=== PATIENT | male | born 1955 | race American Indian/Alaskan Native ===

== ENCOUNTER 2022-05-01 12:45 | Inpatient (IN) | payer OTHER, MEDICARE ==
[2022-05-01] MEDS ORDERED: CEFEPIME/NS 2 GM/100 ML 2 GM/100 ML BAG IV ONE (16:21)
--- NOTE | 2022-05-01 16:31 | Emergency Department Report ---
ED General Adult HPI - General Chief complaint: Weakness Stated complaint: WEAKNESS Time Seen by Provider: 05/01/22 15:27 Source: patient, EMS Mode of arrival: Stretcher Limitations: No Limitations - History of Present Illness Initial comments: Patient presents to the emergency department with a chief complaint of not feeling well. Patient states that he felt weak for the last couple of days and was told that his blood pressure was low. Per EMS on their arrival the patient's systolic BP was in the 50s. Upon his arrival to the emergency department after receiving IV fluids his blood pressure was 89/51. Patient denies any chest pain, shortness breath, or abdominal pain. -: unknown Severity scale (0 -10): 0 Consistency: constant Improves with: none Worsens with: none Associated Symptoms: denies other symptoms Treatments Prior to Arrival: none - Related Data Allergies Allergy/AdvReac Type Severity Reaction Status Date / Time No Known Allergies Allergy Verified 05/01/22 12:55 ED Review of Systems ROS: Stated complaint: WEAKNESS Other details as noted in HPI Comment: All other systems reviewed and negative Constitutional: denies: chills, fever Eyes: denies: eye pain, eye discharge, vision change ENT: denies: ear pain, throat pain Respiratory: denies: cough, shortness of breath, wheezing Cardiovascular: denies: chest pain, palpitations Endocrine: no symptoms reported Gastrointestinal: denies: abdominal pain, nausea, diarrhea Genitourinary: denies: urgency, dysuria Musculoskeletal: denies: back pain, joint swelling, arthralgia Skin: denies: rash, lesions Neurological: denies: headache, weakness, paresthesias Psychiatric: denies: anxiety, depression Hematological/Lymphatic: denies: easy bleeding, easy bruising ED Physical Exam - General Limitations: No Limitations General appearance: alert, in no apparent distress - Head Head exam: Present: atraumatic, normocephalic - Eye Eye exam: Present: normal appearance - Neck Neck exam: Present: normal inspection - Respiratory Respiratory exam: Present: normal lung sounds bilaterally. Absent: respiratory distress, wheezes - Cardiovascular Cardiovascular Exam: Present: normal rhythm, tachycardia. Absent: systolic murmur, diastolic murmur, rubs, gallop - GI/Abdominal GI/Abdominal exam: Present: soft, normal bowel sounds - Rectal Rectal exam: Present: deferred - Extremities Exam Extremities exam: Present: other (Bilateral edema to the mid thighs bilaterally with cellulitic changes) - Back Exam Back exam: Present: normal inspection - Neurological Exam Neurological exam: Present: alert, oriented X3, CN II-XII intact. Absent: motor sensory deficit - Psychiatric Psychiatric exam: Present: normal affect, normal mood - Skin Skin exam: Present: warm, dry, intact, normal color. Absent: rash ED Course Vital Signs 05/01/22 05/01/22 05/01/22 12:52 13:19 13:30 Temperature 98.7 F Pulse Rate 110 H 116 H 112 H Respiratory 18 14 23 Rate Blood Pressure 94/48 Blood Pressure 84/63 [Left] O2 Sat by Pulse 98 99 Oximetry 05/01/22 05/01/22 05/01/22 13:46 14:00 14:16 Temperature Pulse Rate 109 H 108 H 106 H Respiratory 15 17 16 Rate Blood Pressure 87/47 87/47 87/47 Blood Pressure [Left] O2 Sat by Pulse 97 97 98 Oximetry 05/01/22 05/01/22 05/01/22 14:30 14:46 15:00 Temperature Pulse Rate 109 H 109 H 108 H Respiratory 15 20 21 Rate Blood Pressure 87/47 88/49 96/54 Blood Pressure [Left] O2 Sat by Pulse 90 99 98 Oximetry 05/01/22 05/01/22 05/01/22 15:16 15:30 15:46 Temperature Pulse Rate 103 H 101 H 108 H Respiratory 15 15 19 Rate Blood Pressure 87/49 89/50 89/51 Blood Pressure [Left] O2 Sat by Pulse 97 97 99 Oximetry ED Medical Decision Making - Lab Data Result diagrams: 05/01/22 17:36 05/01/22 17:36 Lab Results 05/01/22 05/01/22 05/01/22 Range/Units 17:36 17:36 17:36 WBC 8.9 (4.5-11.0) K/mm3 RBC 2.62 L (3.65-5.03) M/mm3 Hgb 8.4 L (11.8-15.2) gm/dl Hct 25.2 L (35.5-45.6) % MCV 97 H (84-94) fl MCH 32 (28-32) pg MCHC 33 (32-34) % RDW 15.3 H (13.2-15.2) % Plt Count 207 (140-440) K/mm3 Sodium 138 (137-145) mmol/L Potassium 3.2 L (3.6-5.0) mmol/L Chloride 96.6 L (98-107) mmol/L Carbon Dioxide 25 (22-30) mmol/L Anion Gap 20 mmol/L BUN 35 H (9-20) mg/dL Creatinine 3.4 H (0.8-1.3) mg/dL Estimated GFR 22 ml/min BUN/Creatinine Ratio 10 % Glucose 111 H (75-100) mg/dL Lactic Acid 9.10 H* (0.7-2.0) mmol/L Calcium 6.6 L (8.4-10.2) mg/dL Magnesium 1.40 L (1.7-2.3) mg/dL Total Bilirubin 0.60 (0.1-1.2) mg/dL AST 12 (5-40) units/L ALT 5 L (7-56) units/L Alkaline Phosphatase 94 (35-129) units/L Total Protein 4.8 L (6.3-8.2) g/dL Albumin 1.4 L (3.9-5) g/dL Albumin/Globulin Ratio 0.4 % - Radiology Data Radiology results: report reviewed - Medical Decision Making Patient had minimal response with IV fluids thus IV Levophed was initiated Central line was placed by admitting physician IV antibiotics were started along with IV fluids that were previously mentioned Critical Care Time: Yes Critical care time in (mins) excluding proc time.: 35 Critical care attestation.: If time is entered above; I have spent that time in minutes in the direct care of this critically ill patient, excluding procedure time. ED Disposition Clinical Impression: Sepsis associated hypotension Disposition: 09 ADMITTED INPATIENT Is pt being admited?: Yes Does the pt Need Aspirin: No Condition: Fair Referrals: PRIMARY CARE, [Primary Care Provider] - 3-5 Days
--- NOTE | 2022-05-01 16:54 | XRay Report ---
CHEST 1 VIEW 05/01/2022 3:46 PM INDICATION / CLINICAL INFORMATION: hypotension. COMPARISON: None. FINDINGS: SUPPORT DEVICES: Cardiac leads project in expected position. HEART / MEDIASTINUM: Mild cardiomegaly. Pulmonary vascularity is mildly increased. LUNGS / PLEURA: No acute pulmonary or pleural findings. No pneumothorax. ADDITIONAL FINDINGS: No significant additional findings. IMPRESSION: 1. No acute findings. 2. Cardiomegaly. Signer Name: Rudy Green MD Signed: 05/01/2022 4:50 PM Workstation Name: [id number]
--- NOTE | 2022-05-01 17:12 | History and Physical Report ---
History of Present Illness Chief complaint: I am weak and I do not feel good History of present illness: 66 YO Male with Obesity Hypoventilation Syndrome presents ED for evaluation. Patient is lethargic with diminished cognition and provides minimal history. Patient reports "I have been feeling weak the last couple days". EMS was notified and upon arrival the patient was found to be hypotensive with a systolic blood pressure in the 50s and was subsequently placed on IV for resuscitation therapy and transported to [facility] for further care and evaluation of the aforementioned symptoms. The patient was seen and evaluated in the emergency department. All lab and imaging studies reviewed. Patient found to have a systolic blood pressure in the 80s with clinical findings consistent with sepsis, GERALDINE with ATN, metabolic acidosis, as well as fluid overload. Patient admitted to IMCU due to increased risk of worsening symptoms and for medical stabilization. No reports of fever, chills, chest pain, palpitation, t achycardia problem skin rash, recent contact, known exposure to COVID-19. No prior admission for review. No medication listed at time of admission for reconciliation. Advanced care planning conducted in ED. Patient found to have diminished cognition but has a positive gag reflex and is able to protect his airway without difficulty. Past History Past Medical History: other (See HPI, otherwise unable obtain) Past Surgical History: No surgical history, Other (Unable to obtain) Social history: . denies: smoking, alcohol abuse, prescription drug abuse Family history: no significant family history, other (Unable to obtain) Medications and Allergies Allergies Allergy/AdvReac Type Severity Reaction Status Date / Time No Known Allergies Allergy Verified 05/01/22 12:55 Review of Systems ROS unobtainable: due to mental status Exam - Constitutional Vitals: Temp Pulse Resp BP Pulse Ox 98.7 F 108 H 19 89/51 99 05/01/22 12:52 05/01/22 15:46 05/01/22 15:46 05/01/22 15:46 05/01/22 15:46 General appearance: Present: mild distress, obese - EENT Eyes: Present: PERRL ENT: hearing intact, clear oral mucosa - Neck Neck: Present: supple, normal ROM - Respiratory Respiratory effort: normal Respiratory: bilateral: CTA - Cardiovascular Heart Sounds: Present: S1 & S2. Absent: rub, click - Extremities Extremity abnormal: edema Peripheral Pulses: abnormal (Capillary refill greater than 3.5 seconds) - Abdominal General gastrointestinal: Present: soft, non-tender, non-distended, normal bowel sounds Male genitourinary: Present: normal - Integumentary Integumentary: Present: dry, clammy, decreased turgor - Musculoskeletal Musculoskeletal: generalized weakness - Psychiatric Psychiatric: no appropriate mood/affect, no intact judgment & insight, no memory intact - Neurologic Neurologic: no CNII-XII intact, no focal deficits, moves all extremities, no gait normal Results - Labs CBC & Chem 7: 05/01/22 17:36 05/01/22 17:36 Assessment and Plan - Patient Problems (1) Sepsis Current Visit: Yes Status: Acute Plan to address problem: Sepsis protocol: Chest x-ray, CBC, urinalysis, IV fluid resuscitation therapy, monitor urine output every shift, serial lactic acid level, IV antibiotic therapy, maintain mean arterial pressure greater than equal to 65, monitor urine output every shift, monitor fluid balance, blood culture. (2) Obesity hypoventilation syndrome Current Visit: Yes Status: Acute Plan to address problem: Balanced diet, increase physical activity discharge, outpatient pulmonary follow-up for sleep study, noninvasive positive pressure ventilation as clinically indicated. (3) Acute kidney injury (GERALDINE) with acute tubular necrosis (ATN) Current Visit: Yes Status: Acute Plan to address problem: IV fluid resuscitation therapy, BMP, repeat BMP in a.m., monitor urine output every shift, monitor fluid balance. (4) Metabolic acidosis Current Visit: Yes Status: Acute Plan to address problem: IV fluid resuscitation therapy, treat sepsis, serial lactic acid level. (5) Toxic metabolic encephalopathy Current Visit: Yes Status: Acute Plan to address problem: Treat sepsis, neuro check, seizure precautions, IV fluid resuscitation therapy, supportive care. (6) Fluid overload Current Visit: Yes Status: Acute Plan to address problem: Monitor fluid balance, monitor urine output every shift, strict I's/O. (7) DVT prophylaxis Current Visit: Yes Status: Acute Plan to address problem: SCD to bilateral lower extremities while in bed (8) Advance care planning Current Visit: Yes Status: Acute Plan to address problem: Disease education data, care plan discussed, diagnoses discussed, prognosis di scussed, +30 minutes. (9) Preventative health care Current Visit: Yes Status: Acute Plan to address problem: Patient instructed to follow-up with primary care physician for all age and risk factor appropriate screening test. +30 minutes.
--- NOTE | 2022-05-01 17:14 | Procedure Note ---
Date of procedure: 05/01/22 Pre-op diagnosis: Sepsis Post-op diagnosis: same Procedure: Right femoral vein triple-lumen catheter placement under ultrasound guidance After informed consent was obtained the patient was prepped and draped in the usual sterile fashion. A timeout was taken with the patient's nurse at bedside to verify the correct patient, the correct procedure, and the correct operative site. Local anesthesia obtained with 1% lidocaine. Ultrasound was utilized to localize the right femoral vein without difficulty. The Seldinger technique was utilized under ultrasound guidance to insert a seeker needle into the right femoral vein without difficulty. A guidewire was then advanced via the seeker needle into the right femoral vein and the seeker needle subsequently removed. A scalpel was used to incise skin at the insertion site. A dilator was then passed over the guidewire into the right femoral vein and subsequently removed. A preflush triple-lumen catheter was then inserted over the guidewire into the right femoral vein and the guidewire subsequently removed. All 3 ports flush and drawl with ease. A Biopatch was placed at the insertion site. 3-0 silk suture was utilized to suture line in place. A sterile dressing was utilized to cover the triple-lumen catheter. Estimated blood loss minimal. Complications none. Specimens none. Anesthesia: local Surgeon: SUSAN SANCHEZ Pathology: none Condition: stable Disposition: other
[2022-05-01] MEDS ORDERED: NORepinephrine/NS 8 MG-250 ML 8 MG/250 ML INFUS..BTL IV ONE (17:25)
[2022-05-01] MEDS: NORepinephrine/NS 8 MG-250 ML 8 MG/250 ML INFUS..BTL IV SCH (17:41)
[2022-05-01 17:53] LABS: Hematocrit 25.2 % (35.5-45.6); Hemoglobin 8.4 gm/dl (11.8-15.2); Mean Corpuscular HGB Conc 33 % (32-34); Mean Corpuscular Volume 97 fl (84-94); Platelet Count 207 K/mm3 (140-440); Red Blood Count 2.62 M/mm3 (3.65-5.03); Red Cell Distribution Width 15.3 % (13.2-15.2)
[2022-05-01 18:26] LABS: Albumin 1.4 g/dL (3.9-5); Calcium 6.6 mg/dL (8.4-10.2)
[2022-05-01 20:17] LABS: Band Neutrophils # (Manual) 1.1 K/mm3; Basophils % (Manual) 0 % (0.0-1.8); Eosinophils % (Manual) 0 % (0.0-4.3); Hypochromasia Few; Monocytes % (Manual) 0 % (0.0-7.3); Platelet Estimate Consistent w Auto; Total Cells Counted 100
[2022-05-01] MEDS ORDERED: ACETAMINOPHEN 325 MG TAB PO PRN ×2 (20:29)
[2022-05-01] MEDS ORDERED: HYDROmorphone 0.5 MG/0.5 ML INJ IV PRN ×2 (20:29)
[2022-05-01] MEDS ORDERED: oxyCODONE /ACETAMINOPHEN 5-325MG TAB PO PRN (20:29)
[2022-05-01] MEDS ORDERED: SODIUM CHLORIDE 0.9% 1000 ML IV SOLN IV ONE (20:29)
--- NOTE | 2022-05-01 23:51 | Cat Scan Report ---
CT abdomen pelvis wo con INDICATION / CLINICAL INFORMATION: pain. TECHNIQUE: Axial CT imaging of abdomen and pelvis was obtained with oral contrast only. Coronal and sagittal ref ormatted imaging obtained and reviewed. All CT scans at this location are performed using CT dose re duction for ALARA by means of automated exposure control. COMPARISON: Prior CT abdomen 11/01/2009 FINDINGS: CT abdomen with oral contrast only demonstrates grossly normal appearance of the liver, spleen, pancr eas, kidneys, and adrenal glands. Gallbladder is present and without obvious abnormality. Moderate am ount of calcific plaque is present throughout the abdominal aorta but no evidence of aortic aneurysm. 2.5 cm simple cyst is present in the left kidney, upper pole. No intrarenal calculi noted. CT pelvis without IV contrast does not demonstrate any pelvic mass, free fluid, or focal inflammatory process. A normal appendix is present in the right midabdomen. Oral contrast is present throughout t he stomach and majority of the small bowel without demonstrable abnormality. There is mild sigmoid di verticulosis. The colon is otherwise unremarkable. Urinary bladder is normal. Prostate gland is mildl y enlarged. Visualized lung bases do not demonstrate acute pulmonary or pleural disease. However, there is an irr egular noncalcified mass in the right middle lobe anteriorly measuring 1.2 cm. Review of older CT fro m 11/01/2009 shows no significant interval change in this nodule. The lack of tire changer 12 year time period with indicate benign process. Mild cardiomegaly. No acute osseous abnormality noted. IMPRESSION: 1. No acute abnormality noted within the abdomen or pelvis. 2. Moderate amount of calcified plaque is seen throughout the abdominal aorta and common iliac arteri es without associated aneurysm. 3. No GI abnormality other than mild sigmoid diverticulosis.. Signer Name: Kate Sharma MD Signed: 05/01/2022 11:46 PM Workstation Name: [id number]
[2022-05-01 23:54] LABS: Free T4 (Free Thyroxine) 0.96 ng/dL (0.76-1.46)
[2022-05-02 01:48] LABS: C-Reactive Protein 16.1 mg/dL (0.00-1.30)
[2022-05-02 01:57] LABS: Color,Urine Yellow (Yellow)
[2022-05-02 01:58] LABS: WBC,Urine < 1.0 /HPF (0.0-6.0)
[2022-05-02 05:33] LABS: Basophils # (Auto) 0.1 K/mm3 (0.0-0.1); Basophils % (Auto) 0.5 % (0.0-1.8); Hematocrit 29.4 % (35.5-45.6); Hemoglobin 9.8 gm/dl (11.8-15.2); Lymphocytes # (Auto) 1.3 K/mm3 (1.2-5.4); Lymphocytes % (Auto) 7.6 % (13.4-35.0); Mean Corpuscular HGB Conc 33 % (32-34); Mean Corpuscular Volume 96 fl (84-94); Monocytes # (Auto) 0.7 K/mm3 (0.0-0.8); Monocytes % (Auto) 3.9 % (0.0-7.3); Platelet Count 233 K/mm3 (140-440); Red Blood Count 3.07 M/mm3 (3.65-5.03); Red Cell Distribution Width 16.3 % (13.2-15.2)
[2022-05-02] MEDS: D5W/0.45% NACL 1,000 ML IV SCH ×2 (06:34→16:23)
[2022-05-02] MEDS ORDERED: DEXTROSE 50% IN WATER (25GM) 50 ML SYRINGE IV ONE (06:40)
[2022-05-02 06:41] LABS: Albumin 1.6 g/dL (3.9-5)
[2022-05-02] MEDS: NORepinephrine/NS 8 MG-250 ML 8 MG/250 ML INFUS..BTL IV SCH (07:33)
[2022-05-02] MEDS ORDERED: LACTATED RINGERS 1,000 ML IV ONE ×4 (09:39→11:00)
[2022-05-02] MEDS: BENZOCAINE/MENTHOL LOZENGE MM PRN ×3 (10:35→20:33)
--- NOTE | 2022-05-02 10:47 | Consultation ---
History of Present Illness - Reason for Consult Consult date: 05/02/22 Hypotension Past History Past Medical History: other (See HPI, otherwise unable obtain) Past Surgical History: No surgical history, Other (Unable to obtain) Social history: . denies: smoking, alcohol abuse, prescription drug abuse Family history: no significant family history, other (Unable to obtain) Medications and Allergies Allergies Allergy/AdvReac Type Severity Reaction Status Date / Time No Known Allergies Allergy Verified 05/01/22 12:55 Home Medications Medication Instructions Recorded Confirmed Last Taken Type No Known Home Medications [No 05/02/22 05/02/22 Unknown History Reported Home Medications] Active Meds: Active Medications Acetaminophen (Acetaminophen 325 Mg Tab) 650 mg PO Q6H PRN PRN Reason: Pain MILD(1-3)/Fever >100.5/BROWN Benzocaine/Menthol (Benzocaine/Menthol Lozenge) 1 each MM Q2H PRN PRN Reason: Sore Throat Last Admin: 05/02/22 10:35 Dose: 1 each Hydromorphone HCl (Hydromorphone 0.5 Mg/0.5 Ml Inj) 0.25 mg IV Q4H PRN PRN Reason: Pain, Moderate (4-6) Hydromorphone HCl (Hydromorphone 0.5 Mg/0.5 Ml Inj) 0.5 mg IV Q13H PRN PRN Reason: Pain , Severe (7-10) NORepinephrine/NS 8 MG-250 ML (Norepinephrine/Ns 8 Mg-250 Ml (Double Conc)) 8 mg in 250 mls @ 22.113 mls/hr IV TITRATE ALEX; Protocol Last Admin: 05/02/22 07:33 Dose: 0.1 mcg/kg/min, 22.113 mls/hr Dextrose/Sodium Chloride (D5/0.45ns) 1,000 mls @ 100 mls/hr IV DIRECT ALEX Last Admin: 05/02/22 06:34 Dose: 100 mls/hr Lactated Ringer's (Lactated Ringers) 1,000 mls @ 999 mls/hr IV BOLUS ONE Stop: 05/02/22 12:00 Last Admin: 05/02/22 10:32 Dose: 999 mls/hr Oxycodone/Acetaminophen (Oxycodone /Acetaminophen 5-325mg Tab) 1 tab PO Q6H PRN PRN Reason: Pain, Moderate (4-6) Sodium Chloride (Sodium Chloride 0.9% 10 Ml Flush Syringe) 10 ml IV BID ALEX Last Admin: 05/02/22 10:31 Dose: 10 ml Sodium Chloride (Sodium Chloride 0.9% 10 Ml Flush Syringe) 10 ml IV PRN PRN PRN Reason: LINE FLUSH Exam - Constitutional Vitals: Temp Pulse Resp BP Pulse Ox 97.6 F 106 H 15 110/59 92 05/02/22 05:31 05/02/22 08:00 05/02/22 08:00 05/02/22 08:00 05/02/22 08:00 Results - Labs CBC & Chem 7: 05/03/22 04:00 05/03/22 04:00 Labs: Abnormal lab results 05/01/22 05/01/22 05/01/22 Range/Units 17:36 17:36 17:36 WBC (4.5-11.0) K/mm3 RBC 2.62 L (3.65-5.03) M/mm3 Hgb 8.4 L (11.8-15.2) gm/dl Hct 25.2 L (35.5-45.6) % MCV 97 H (84-94) fl RDW 15.3 H (13.2-15.2) % Lymph % (Auto) (13.4-35.0) % Seg Neutrophils % (40.0-70.0) % Seg Neuts % (Manual) 86.0 H (40.0-70.0) % Lymphocytes % (Manual) 1.0 L (13.4-35.0) % Seg Neutrophils # (1.8-7.7) K/mm3 Lymphocytes # (Manual) 0.1 L (1.2-5.4) K/mm3 Potassium 3.2 L (3.6-5.0) mmol/L Chloride 96.6 L (98-107) mmol/L BUN 35 H (9-20) mg/dL Creatinine 3.4 H (0.8-1.3) mg/dL Glucose 111 H (75-100) mg/dL POC Glucose (70-105) mg/dL Lactic Acid 9.10 H* (0.7-2.0) mmol/L Calcium 6.6 L (8.4-10.2) mg/dL Magnesium 1.40 L (1.7-2.3) mg/dL ALT 5 L (7-56) units/L C-Reactive Protein (0.00-1.30) mg/dL NT-Pro-B Natriuret Pep (0-900) pg/mL Total Protein 4.8 L (6.3-8.2) g/dL Albumin 1.4 L (3.9-5) g/dL 05/01/22 05/01/22 05/02/22 Range/Units 22:57 22:57 05:09 WBC (4.5-11.0) K/mm3 RBC (3.65-5.03) M/mm3 Hgb (11.8-15.2) gm/dl Hct (35.5-45.6) % MCV (84-94) fl RDW (13.2-15.2) % Lymph % (Auto) (13.4-35.0) % Seg Neutrophils % (40.0-70.0) % Seg Neuts % (Manual) (40.0-70.0) % Lymphocytes % (Manual) (13.4-35.0) % Seg Neutrophils # (1.8-7.7) K/mm3 Lymphocytes # (Manual) (1.2-5.4) K/mm3 Potassium (3.6-5.0) mmol/L Chloride (98-107) mmol/L BUN (9-20) mg/dL Creatinine (0.8-1.3) mg/dL Glucose (75-100) mg/dL POC Glucose (70-105) mg/dL Lactic Acid 10.20 H* 8.60 H* (0.7-2.0) mmol/L Calcium (8.4-10.2) mg/dL Magnesium 1.60 L (1.7-2.3) mg/dL ALT (7-56) units/L C-Reactive Protein 16.10 H (0.00-1.30) mg/dL NT-Pro-B Natriuret Pep 12649 H (0-900) pg/mL Total Protein (6.3-8.2) g/dL Albumin (3.9-5) g/dL 05/02/22 05/02/22 05/02/22 Range/Units 05:09 05:09 06:12 WBC 17.3 H (4.5-11.0) K/mm3 RBC 3.07 L (3.65-5.03) M/mm3 Hgb 9.8 L (11.8-15.2) gm/dl Hct 29.4 L (35.5-45.6) % MCV 96 H (84-94) fl RDW 16.3 H (13.2-15.2) % Lymph % (Auto) 7.6 L (13.4-35.0) % Seg Neutrophils % 88.0 H (40.0-70.0) % Seg Neuts % (Manual) (40.0-70.0) % Lymphocytes % (Manual) (13.4-35.0) % Seg Neutrophils # 15.2 H (1.8-7.7) K/mm3 Lymphocytes # (Manual) (1.2-5.4) K/mm3 Potassium 3.3 L (3.6-5.0) mmol/L Chloride 92.8 L (98-107) mmol/L BUN 36 H (9-20) mg/dL Creatinine 3.4 H (0.8-1.3) mg/dL Glucose (75-100) mg/dL POC Glucose 43 L (70-105) mg/dL Lactic Acid (0.7-2.0) mmol/L Calcium 7.0 L (8.4-10.2) mg/dL Magnesium (1.7-2.3) mg/dL ALT (7-56) units/L C-Reactive Protein (0.00-1.30) mg/dL NT-Pro-B Natriuret Pep (0-900) pg/mL Total Protein 6.0 L D (6.3-8.2) g/dL Albumin 1.6 L (3.9-5) g/dL 05/02/22 Range/Units 06:14 WBC (4.5-11.0) K/mm3 RBC (3.65-5.03) M/mm3 Hgb (11.8-15.2) gm/dl Hct (35.5-45.6) % MCV (84-94) fl RDW (13.2-15.2) % Lymph % (Auto) (13.4-35.0) % Seg Neutrophils % (40.0-70.0) % Seg Neuts % (Manual) (40.0-70.0) % Lymphocytes % (Manual) (13.4-35.0) % Seg Neutrophils # (1.8-7.7) K/mm3 Lymphocytes # (Manual) (1.2-5.4) K/mm3 Potassium (3.6-5.0) mmol/L Chloride (98-107) mmol/L BUN (9-20) mg/dL Creatinine (0.8-1.3) mg/dL Glucose (75-100) mg/dL POC Glucose 49 L (70-105) mg/dL Lactic Acid (0.7-2.0) mmol/L Calcium (8.4-10.2) mg/dL Magnesium (1.7-2.3) mg/dL ALT (7-56) units/L C-Reactive Protein (0.00-1.30) mg/dL NT-Pro-B Natriuret Pep (0-900) pg/mL Total Protein (6.3-8.2) g/dL Albumin (3.9-5) g/dL Assessment and Plan 66 y/o male with hypotension of unknown etiology 1. Most likely dry given BUN/CR. Will give more fluids 2. wean pressors to off for maps >65 CCT 31 minutes.
--- NOTE | 2022-05-02 11:46 | Electrocardiograph Report ---
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
[2022-05-02] MEDS: MIDODRINE 2.5 MG TAB PO SCH (16:22)
[2022-05-02] MEDS ORDERED: MAGNESIUM SULFATE 4 GM/100 ML BAG IV ONE (19:40)
--- NOTE | 2022-05-02 19:47 | Progress Note ---
Assessment and Plan Assessment and plan: This is a 76-year-old male with OHS, CVA x2, CHF and AICD in situ, CKD admitted with GERALDINE, metabolic acidosis, toxic metabolic encephalopathy, fluid overload Neuro: Acute metabolic encephalopathy (resolved), h/o CVA x2 -Reorientation as needed -Maintain sleep-wake cycle -As needed analgesia Cardiac: Hypotension, lactic acidosis, h/o CHF with AICD in situ -Blood pressure monitoring per protocol -Vasopressor support with vasopressin -MAP goal greater than 65 -Midodrine p.o. -Echocardiogram pending -May need inotrope support -proBNP [id number] -S/p 3500 mL normal saline in the ED -S/p 4 L LR in the ICU Respiratory: NAD -CCM consulted, appreciate recommendations -Pulmonary hygiene -SPO2 monitoring -Supplemental oxygen as needed GI: Severe protein calorie malnutrition - D5 half-normal saline 100-hour -PPI -CC diet -CT abdomen/pelvis without contrast shows no abnormality noted within the abdomen or pelvis, moderate amount of calcified plaque seen throughout the abdominal aorta and common iliac arteries with out associated aneurysm, no GI abnormality other than simple sigmoid diverticulosis : Hypokalemia, acute on chronic kidney disease, hypomagnesemia -Monitor intake and output -Renally dose medications -Avoid nephrotoxic medications -Repeat magnesium -Will not replete hypokalemia in setting of BUN/creatinine of 3.4/36 -Trend BMP ID: SIRS, Chronic lymphedema -Presented with tachycardia, hypotension, acute kidney injury, leukocytosis with no definite source of infection noted -f/u blood culture -Monitor WBC and temperature curve Endo: h/o DM -Avoid hypoglycemia -SSI -Accu-Cheks q. ACH S Heme: Leukocytosis -Trend CBC -Transfuse hemoglobin less than 7 -SCDs to BLE while in bed The high probability of a clinically significant, sudden or life threatening deterioration of the [multi] system(s) required my full and direct attention, intervention and personal management. The aggregate critical care time was [60] minutes. This time is in addition to time spent performing reported procedures but includes the following: [x] Data Review and interpretation [x] Patient assessment and monitoring of vital signs [x] Documentation [x] Medication orders and management Disposition Plan: icu Total Time Spent with Patient (Minutes): 60 History Interval history: This is a 76-year-old male with OHS, CVA x2, CHF with AICD in situ, CKD (? Stage IV) not on hemodialysis and DM who presented to the emergency department on 05/01 via EMS with complaints of feeling weak over the past couple days. Upon EMS arrival patient was found to be hypotensive SBP in the 50s and was subsequently placed on IV fluid and transported to [facility]. In the emergency department patient was found to have a systolic blood pressure in the 80s, GERALDINE with ATN, metabolic acidosis as well as fluid overload. Patient was admitted to IMCU initially but later required the use of vasopressors and was upgraded to I CU. Patient was admitted to the hospitalist service with r/o sepsis, GERLADINE with ATN, metabolic acidosis,, toxic metabolic encephalopathy, fluid overload with consults to [facility]. Hospital course to date: 05/02: Patient Levophed weaned, added midodrine. Per CCM he received additional 4 L LR bolus. Hospitalist Physical - Constitutional Vitals: Temp Pulse Resp BP Pulse Ox 97.6 F 104 H 18 106/57 98 05/02/22 05:31 05/02/22 19:00 05/02/22 19:00 05/02/22 19:00 05/02/22 19:00 General appearance: Present: cachectic, obese - EENT Eyes: Present: PERRL, EOM intact ENT: clear oral mucosa - Neck Neck: Present: normal ROM - Respiratory Respiratory: bilateral: CTA - Cardiovascular Rhythm: regular Heart Sounds: Present: S1 & S2. Absent: systolic murmur, diastolic murmur - Extremities Extremities: no ischemia, pulses intact, pulses symmetrical, normal temperature, normal color Extremity abnormal: edema Peripheral Pulses: within normal limits - Abdominal General gastrointestinal: soft, non-tender, non-distended, normal bowel sounds - Integumentary Integumentary: Present: warm, dry - Psychiatric Psychiatric: cooperative - Neurologic Neurologic: no focal deficits - Allied Health Allied health notes reviewed: nursing, RT, social work Results - Labs CBC & Chem 7: 05/02/22 05:09 05/02/22 05:09 Labs: Laboratory Last Values WBC 17.3 K/mm3 (4.5-11.0) H 05/02/22 05:09 RBC 3.07 M/mm3 (3.65-5.03) L 05/02/22 05:09 Hgb 9.8 gm/dl (11.8-15.2) L 05/02/22 05:09 Hct 29.4 % (35.5-45.6) L 05/02/22 05:09 MCV 96 fl (84-94) H 05/02/22 05:09 MCH 32 pg (28-32) 05/02/22 05:09 MCHC 33 % (32-34) 05/02/22 05:09 RDW 16.3 % (13.2-15.2) H 05/02/22 05:09 Plt Count 233 K/mm3 (140-440) 05/02/22 05:09 Lymph % (Auto) 7.6 % (13.4-35.0) L 05/02/22 05:09 Clinch % (Auto) 3.9 % (0.0-7.3) 05/02/22 05:09 Eos % (Auto) 0.0 % (0.0-4.3) 05/02/22 05:09 Baso % (Auto) 0.5 % (0.0-1.8) 05/02/22 05:09 Lymph # (Auto) 1.3 K/mm3 (1.2-5.4) 05/02/22 05:09 Clinch # (Auto) 0.7 K/mm3 (0.0-0.8) 05/02/22 05:09 Eos # (Auto) 0.0 K/mm3 (0.0-0.4) 05/02/22 05:09 Baso # (Auto) 0.1 K/mm3 (0.0-0.1) 05/02/22 05:09 Add Manual Diff Complete 05/01/22 17:36 Total Counted 100 05/01/22 17:36 Seg Neutrophils % 88.0 % (40.0-70.0) H 05/02/22 05:09 Seg Neuts % (Manual) 86.0 % (40.0-70.0) H 05/01/22 17:36 Band Neutrophils % 12.0 % 05/01/22 17:36 Lymphocytes % (Manual) 1.0 % (13.4-35.0) L 05/01/22 17:36 Reactive Lymphs % (Man) 0 % 05/01/22 17:36 Monocytes % (Manual) 0 % (0.0-7.3) 05/01/22 17:36 Eosinophils % (Manual) 0 % (0.0-4.3) 05/01/22 17:36 Basophils % (Manual) 0 % (0.0-1.8) 05/01/22 17:36 Metamyelocytes % 1.0 % 05/01/22 17:36 Myelocytes % 0 % 05/01/22 17:36 Promyelocytes % 0 % 05/01/22 17:36 Blast Cells % 0 % 05/01/22 17:36 Nucleated RBC % Not Reportable 05/01/22 17:36 Seg Neutrophils # 15.2 K/mm3 (1.8-7.7) H 05/02/22 05:09 Seg Neutrophils # Man 7.7 K/mm3 (1.8-7.7) 05/01/22 17:36 Band Neutrophils # 1.1 K/mm3 05/01/22 17:36 Lymphocytes # (Manual) 0.1 K/mm3 (1.2-5.4) L 05/01/22 17:36 Abs React Lymphs (Man) 0.0 K/mm3 05/01/22 17:36 Monocytes # (Manual) 0.0 K/mm3 (0.0-0.8) 05/01/22 17:36 Eosinophils # (Manual) 0.0 K/mm3 (0.0-0.4) 05/01/22 17:36 Basophils # (Manual) 0.0 K/mm3 (0.0-0.1) 05/01/22 17:36 Metamyelocytes # 0.1 K/mm3 05/01/22 17:36 Myelocytes # 0.0 K/mm3 05/01/22 17:36 Promyelocytes # 0.0 K/mm3 05/01/22 17:36 Blast Cells # 0.0 K/mm3 05/01/22 17:36 WBC Morphology Not Reportable 05/01/22 17:36 Hypersegmented Neuts Not Reportable 05/01/22 17:36 Hyposegmented Neuts Not Reportable 05/01/22 17:36 Hypogranular Neuts Not Reportable 05/01/22 17:36 Smudge Cells Not Reportable 05/01/22 17:36 Toxic Granulation Not Reportable 05/01/22 17:36 Toxic Vacuolation Not Reportable 05/01/22 17:36 Dohle Bodies Not Reportable 05/01/22 17:36 Pelger-Huet Anomaly Not Reportable 05/01/22 17:36 Arnold Rods Not Reportable 05/01/22 17:36 Platelet Estimate Consistent w auto 05/01/22 17:36 Clumped Platelets Not Reportable 05/01/22 17:36 Plt Clumps, EDTA Not Reportable 05/01/22 17:36 Large Platelets Not Reportable 05/01/22 17:36 Giant Platelets Not Reportable 05/01/22 17:36 Platelet Satelliting Not Reportable 05/01/22 17:36 Plt Morphology Comment Not Reportable 05/01/22 17:36 RBC Morphology Not Reportable 05/01/22 17:36 Dimorphic RBCs Not Reportable 05/01/22 17:36 Polychromasia Not Reportable 05/01/22 17:36 Hypochromasia Few 05/01/22 17:36 Poikilocytosis Not Reportable 05/01/22 17:36 Anisocytosis Not Reportable 05/01/22 17:36 Microcytosis Not Reportable 05/01/22 17:36 Macrocytosis Not Reportable 05/01/22 17:36 Spherocytes Not Reportable 05/01/22 17:36 Pappenheimer Bodies Not Reportable 05/01/22 17:36 Sickle Cells Not Reportable 05/01/22 17:36 Target Cells Not Reportable 05/01/22 17:36 Tear Drop Cells Not Reportable 05/01/22 17:36 Ovalocytes Not Reportable 05/01/22 17:36 Helmet Cells Not Reportable 05/01/22 17:[address] [place] Bodies Not Reportable 05/01/22 17:36 [place] Rings Not Reportable 05/01/22 17:36 Goyo Cells Not Reportable 05/01/22 17:36 Bite Cells Not Reportable 05/01/22 17:36 Crenated Cell Not Reportable 05/01/22 17:36 Elliptocytes Not Reportable 05/01/22 17:36 Acanthocytes (Spur) Not Reportable 05/01/22 17:36 Rouleaux Not Reportable 05/01/22 17:36 Hemoglobin C Crystals Not Reportable 05/01/22 17:36 Schistocytes Not Reportable 05/01/22 17:36 Malaria parasites Not Reportable 05/01/22 17:36 ESR 43 mm/Hr (0-20) 05/02/22 05:09 Harpreet Bodies Not Reportable 05/01/22 17:36 Hem Pathologist Commnt No 05/01/22 17:36 Sodium 137 mmol/L (137-145) 05/02/22 05:09 Potassium 3.3 mmol/L (3.6-5.0) L 05/02/22 05:09 Chloride 92.8 mmol/L (98-107) L 05/02/22 05:09 Carbon Dioxide 22 mmol/L (22-30) 05/02/22 05:09 Anion Gap 26 mmol/L 05/02/22 05:09 BUN 36 mg/dL (9-20) H 05/02/22 05:09 Creatinine 3.4 mg/dL (0.8-1.3) H 05/02/22 05:09 Estimated GFR 22 ml/min 05/02/22 05:09 BUN/Creatinine Ratio 11 % 05/02/22 05:09 Glucose 95 mg/dL (75-100) 05/02/22 05:09 POC Glucose 101 mg/dL (70-105) 05/02/22 17:54 Lactic Acid 7.90 mmol/L (0.7-2.0) H* 05/02/22 11:40 Calcium 7.0 mg/dL (8.4-10.2) L 05/02/22 05:09 Magnesium 1.60 mg/dL (1.7-2.3) L 05/01/22 22:57 Total Bilirubin 0.30 mg/dL (0.1-1.2) 05/02/22 05:09 AST 18 units/L (5-40) 05/02/22 05:09 ALT 7 units/L (7-56) 05/02/22 05:09 Alkaline Phosphatase 113 units/L (35-129) 05/02/22 05:09 C-Reactive Protein 16.10 mg/dL (0.00-1.30) H 05/01/22 22:57 NT-Pro-B Natriuret Pep 78311 pg/mL (0-900) H 05/01/22 22:57 Total Protein 6.0 g/dL (6.3-8.2) L D 05/02/22 05:09 Albumin 1.6 g/dL (3.9-5) L 05/02/22 05:09 Albumin/Globulin Ratio 0.4 % 05/02/22 05:09 TSH 0.918 mlU/mL (0.270-4.200) 05/01/22 22:57 Free T4 0.96 ng/dL (0.76-1.46) 05/01/22 22:57 Urine Color Yellow (Yellow) 05/02/22 01:24 Urine Turbidity Clear (Clear) 05/02/22 01:24 Specific [place] (Man) 1.015 (1.003-1.030) 05/02/22 01:24 Ur Protein (Man) <30 mg dl mg/dL (Negative) 05/02/22 01:24 Ur Ketones (Man) Negative (Negative) 05/02/22 01:24 Ur Nitrite (Man) Negative (Negative) 05/02/22 01:24 Ur Reducing Substances Not Reportable 05/02/22 01:24 Urine Bilirubin (Man) Negative (Negative) 05/02/22 01:24 Leukocyte Esterase (Man) Negative (Negative) 05/02/22 01:24 Urine WBC (Auto) < 1.0 /HPF (0.0-6.0) 05/02/22 01:24 Urine RBC (Auto) 1.0 /HPF (0.0-6.0) 05/02/22 01:24 U Epithel Cells (Auto) 1.0 /HPF (0-13.0) 05/02/22 01:24 Urine RBC (Manual) Negative (Negative) 05/02/22 01:24 Blood Type O POSITIVE 05/01/22 22:57 Antibody Screen Negative 05/01/22 22:57 Microbiology: Microbiology 05/01/22 17:36 Peripheral/Venous Blood Culture - Preliminary NO GROWTH AFTER 24 HOURS 05/01/22 17:36 Peripheral/Venous Blood Culture - Preliminary NO GROWTH AFTER 24 HOURS Venegas/IV: Voiding Method Condom Catheter Active Medications - Current Medications Current Medications: Generic Name Dose Route Start Last Admin Trade Name Freq PRN Reason Stop Dose Admin Acetaminophen 650 mg 05/01/22 20:29 Acetaminophen 325 Mg Tab PO Q6H PRN Pain MILD(1-3)/Fever >100.5/BROWN Benzocaine/Menthol 1 each 05/02/22 11:00 05/02/22 16:32 Benzocaine/Menthol Lozenge MM 1 each Q2H PRN Administration Sore Throat Hydromorphone HCl 0.25 mg 05/01/22 20:29 Hydromorphone 0.5 Mg/0.5 Ml Inj IV Q4H PRN Pain, Moderate (4-6) Hydromorphone HCl 0.5 mg 05/01/22 20:29 Hydromorphone 0.5 Mg/0.5 Ml Inj IV Q13H PRN Pain , Severe (7-10) NORepinephrine/NS 8 MG-250 ML 8 mg in 250 mls @ 22.113 mls/hr 05/01/22 18:00 05/02/22 12:30 Norepinephrine/Ns 8 Mg-250 Ml (Double Conc) IV 0.04 mcg/kg/min TITRATE ALEX 8.845 mls/hr Titration Protocol 0.1 MCG/KG/MIN Dextrose/Sodium Chloride 1,000 mls @ 100 mls/hr 05/02/22 07:00 05/02/22 16:23 D5/0.45ns IV 100 mls/hr DIRECT ALEX Administration Magnesium Sulfate 4 gm in 100 mls @ 25 mls/hr 05/02/22 19:40 Magnesium Sulfate 4gm/100ml IV 05/02/22 23:39 ONCE ONE Midodrine 10 mg 05/02/22 16:00 05/02/22 16:22 Midodrine 2.5 Mg Tab PO 10 mg TID@0800,1200,1600 ALEX Administration Oxycodone/Acetaminophen 1 tab 05/01/22 20:29 Oxycodone /Acetaminophen 5-325mg Tab PO Q6H PRN Pain, Moderate (4-6) Pneumococcal Polyvalent Vaccine 0.5 ml 05/03/22 12:00 Pneumococcal 23 Valent 0.5 Ml Vial IM 05/03/22 12:01 .ONCE ONE Sodium Chloride 10 ml 05/01/22 22:00 05/02/22 10:31 Sodium Chloride 0.9% 10 Ml Flush Syringe IV 10 ml BID ALEX Administration Sodium Chloride 10 ml 05/01/22 20:29 Sodium Chloride 0.9% 10 Ml Flush Syringe IV PRN PRN LINE FLUSH
[2022-05-03] MEDS: D5W/0.45% NACL 1,000 ML IV SCH (03:09)
[2022-05-03] MEDS: NORepinephrine/NS 8 MG-250 ML 8 MG/250 ML INFUS..BTL IV SCH (03:10)
[2022-05-03 05:03] LABS: Hematocrit 24.7 % (35.5-45.6); Hemoglobin 8.3 gm/dl (11.8-15.2); Mean Corpuscular HGB Conc 33 % (32-34); Mean Corpuscular Volume 96 fl (84-94); Platelet Count 145 K/mm3 (140-440); Red Blood Count 2.58 M/mm3 (3.65-5.03)
[2022-05-03 05:23] LABS: Calcium 6.3 mg/dL (8.4-10.2)
[2022-05-03] MEDS: MIDODRINE 2.5 MG TAB PO SCH (08:30)
[2022-05-03] MEDS ORDERED: PNEUMOCOCCAL 23 Valent 0.5 ML VIAL IM ONE (12:00)
[2022-05-03] MEDS ORDERED: DOBUTamine/D5W 500 MG/250 ML 500 MG/250 ML BAG IV SCH (12:00)
[2022-05-03] MEDS: ASCORBIC ACID 500 MG TAB PO SCH ×2 (12:48→22:00)
[2022-05-03] MEDS: MIDODRINE 10 MG TAB PO SCH ×2 (12:48→16:45)
[2022-05-03] MEDS: ALBUTEROL 2.5 MG/3 ML NEBU IH SCH ×3 (12:51→21:23)
--- NOTE | 2022-05-03 13:30 | Progress Note ---
Assessment and Plan 66 y/o male with hypotension of unknown etiology 05/03/22: Hold further fluids and stop continuous fluids. Will attempt inotropes. Follow up echo results. If inotropes done work, will consider stress dose steroids. 1. Most likely dry given BUN/CR. Will give more fluids 2. wean pressors to off for maps >65 CCT 31 minutes. Subjective Date of service: 05/03/22 Interval history: Still hypotensive. Does have CHF as CXR shows device but EF is not known. Objective - Constitutional Vitals: Vital Signs - 12hr 05/03/22 05/03/22 05/03/22 01:30 01:45 02:00 Temperature Pulse Rate 98 H 100 H 97 H Respiratory 17 19 15 Rate Blood Pressure 111/58 108/60 108/58 O2 Sat by Pulse 92 97 99 Oximetry 05/03/22 05/03/22 05/03/22 02:15 02:30 02:45 Temperature Pulse Rate 97 H 97 H 99 H Respiratory 16 17 16 Rate Blood Pressure 103/51 103/51 111/61 O2 Sat by Pulse 98 98 98 Oximetry 05/03/22 05/03/22 05/03/22 03:00 03:15 03:30 Temperature Pulse Rate 98 H 100 H 99 H Respiratory 15 18 20 Rate Blood Pressure 111/58 98/54 102/54 O2 Sat by Pulse 99 98 98 Oximetry 05/03/22 05/03/22 05/03/22 03:45 04:00 04:15 Temperature 99.6 F Pulse Rate 99 H 99 H 99 H Respiratory 16 20 14 Rate Blood Pressure 99/56 102/57 104/58 O2 Sat by Pulse 98 100 97 Oximetry 05/03/22 05/03/22 05/03/22 04:30 04:45 04:53 Temperature Pulse Rate 98 H 97 H 97 H Respiratory 17 15 Rate Blood Pressure 103/56 99/58 O2 Sat by Pulse 98 99 99 Oximetry 05/03/22 05/03/22 05/03/22 05:00 05:15 05:25 Temperature Pulse Rate 96 H 101 H 101 H Respiratory 17 21 Rate Blood Pressure 102/57 107/58 O2 Sat by Pulse 98 100 Oximetry 05/03/22 05/03/22 05/03/22 05:30 05:45 06:00 Temperature Pulse Rate 102 H 98 H 99 H Respiratory 19 18 18 Rate Blood Pressure 108/61 107/56 101/62 O2 Sat by Pulse 99 98 98 Oximetry 05/03/22 05/03/22 05/03/22 06:15 06:30 06:45 Temperature Pulse Rate 97 H 98 H 98 H Respiratory 17 20 18 Rate Blood Pressure 100/57 103/59 101/57 O2 Sat by Pulse 99 97 99 Oximetry 05/03/22 05/03/22 05/03/22 07:00 07:15 07:30 Temperature Pulse Rate 98 H 101 H 99 H Respiratory 18 17 18 Rate Blood Pressure 104/56 105/61 99/55 O2 Sat by Pulse 99 99 98 Oximetry 05/03/22 07:45 Temperature Pulse Rate 101 H Respiratory 15 Rate Blood Pressure 96/57 O2 Sat by Pulse 98 Oximetry - Labs CBC & Chem 7: 05/03/22 04:00 05/03/22 04:00 Labs: Abnormal lab results 05/03/22 05/03/22 05/03/22 Range/Units 00:13 04:00 04:00 WBC 15.8 H (4.5-11.0) K/mm3 RBC 2.58 L (3.65-5.03) M/mm3 Hgb 8.3 L (11.8-15.2) gm/dl Hct 24.7 L (35.5-45.6) % MCV 96 H (84-94) fl RDW 16.0 H (13.2-15.2) % Sodium 136 L (137-145) mmol/L Potassium 3.5 L (3.6-5.0) mmol/L Chloride 97.2 L (98-107) mmol/L BUN 33 H (9-20) mg/dL Creatinine 3.1 H (0.8-1.3) mg/dL Glucose 138 H (75-100) mg/dL POC Glucose 156 H (70-105) mg/dL Lactic Acid (0.7-2.0) mmol/L Calcium 6.3 L (8.4-10.2) mg/dL 05/03/22 05/03/22 Range/Units 04:00 05:37 WBC (4.5-11.0) K/mm3 RBC (3.65-5.03) M/mm3 Hgb (11.8-15.2) gm/dl Hct (35.5-45.6) % MCV (84-94) fl RDW (13.2-15.2) % Sodium (137-145) mmol/L Potassium (3.6-5.0) mmol/L Chloride (98-107) mmol/L BUN (9-20) mg/dL Creatinine (0.8-1.3) mg/dL Glucose (75-100) mg/dL POC Glucose 111 H (70-105) mg/dL Lactic Acid 6.30 H* (0.7-2.0) mmol/L Calcium (8.4-10.2) mg/dL Medications & Allergies - Medications Allergies/Adverse Reactions: Allergies No Known Allergies Allergy (Verified 05/01/22 12:55) Home Medications: Home Medications Medication Instructions Recorded Confirmed Last Taken Type No Known Home Medications [No 05/02/22 05/02/22 Unknown History Reported Home Medications] Active Medications: Generic Name Dose Route Start Last Admin Trade Name Freq PRN Reason Stop Dose Admin Acetaminophen 650 mg 05/01/22 20:29 Acetaminophen 325 Mg Tab PO Q6H PRN Pain MILD(1-3)/Fever >100.5/BROWN Albuterol 2.5 mg 05/03/22 12:00 05/03/22 12:51 Albuterol 2.5 Mg/3 Ml Nebu IH 2.5 mg QIDRT ALEX Administration Ascorbic Acid 500 mg 05/03/22 12:00 05/03/22 12:48 Ascorbic Acid 500 Mg Tab PO 500 mg BID ALEX Administration Benzocaine/Menthol 1 each 05/02/22 11:00 05/02/22 20:33 Benzocaine/Menthol Lozenge MM 1 each Q2H PRN Administration Sore Throat NORepinephrine/NS 8 MG-250 ML 8 mg in 250 mls @ 22.113 mls/hr 05/01/22 18:00 05/03/22 05:39 Norepinephrine/Ns 8 Mg-250 Ml (Double Conc) IV 0.03 mcg/kg/min TITRATE ALEX 6.634 mls/hr Titration Protocol 0.1 MCG/KG/MIN Dobutamine HCl/Dextrose 500 mg in 250 mls @ 8.845 mls/hr 05/03/22 12:00 05/03/22 12:48 Dobutrex Drip 500mg/D5w 250ml IV 2.5 mcg/kg/min DIRECT ALEX 8.845 mls/hr Administration Protocol 2.5 MCG/KG/MIN Midodrine 10 mg 05/03/22 12:00 05/03/22 12:48 Midodrine 10 Mg Tab PO 10 mg TID@0800,1200,1600 ALEX Administration Oxycodone/Acetaminophen 1 tab 05/01/22 20:29 Oxycodone /Acetaminophen 5-325mg Tab PO Q6H PRN Pain, Moderate (4-6) Sodium Chloride 10 ml 05/01/22 22:00 05/03/22 09:31 Sodium Chloride 0.9% 10 Ml Flush Syringe IV 10 ml BID ALEX Administration Sodium Chloride 10 ml 05/01/22 20:29 Sodium Chloride 0.9% 10 Ml Flush Syringe IV PRN PRN LINE FLUSH Zinc Sulfate 220 mg 05/03/22 22:00 Zinc Sulfate 220 Mg Cap PO BID ALEX
--- NOTE | 2022-05-03 19:13 | Progress Note ---
Assessment and Plan Assessment and plan: This is a 76-year-old male with OHS, CVA x2, CHF and AICD in situ, CKD admitted with GERALDINE, metabolic acidosis, toxic metabolic encephalopathy, fluid overload Neuro: Acute metabolic encephalopathy (resolved), h/o CVA x2 -Reorientation as needed -Maintain sleep-wake cycle -As needed analgesia Cardiac: Hypotension, lactic acidosis, h/o CHF with AICD in situ -Blood pressure monitoring per protocol -Vasopressor support with vasopressin -MAP goal greater than 65 -Midodrine p.o. -Echocardiogram pending -Dobutamine gtt -proBNP 92483 -S/p 3500 mL normal saline in the ED -S/p 4 L LR in the ICU Respiratory: NAD -CCM consulted, appreciate recommendations -Pulmonary hygiene -SPO2 monitoring -Supplemental oxygen as needed GI: Severe protein calorie malnutrition -Cardiac cc diet -PPI -CT abdomen/pelvis without contrast shows no abnormality noted within the abdomen or pelvis, moderate amount of calcified plaque seen throughout the abdominal aorta and common iliac arteries with out associated aneurysm, no GI abnormality other than simple sigmoid diverticulosis : Hypokalemia, acute on chronic kidney disease -Monitor intake and output -Renally dose medications -Avoid nephrotoxic medications -Will not replete hypokalemia in setting of BUN/creatinine of 3.4/36 -Trend BMP ID: SIRS, Chronic lymphedema -Presented with tachycardia, hypotension, acute kidney injury, leukocytosis with no definite source of infection noted -f/u blood culture -WOCN consulted -Monitor WBC and temperature curve Endo: h/o DM -Avoid hypoglycemia -SSI -Accu-Cheks q. ACH S Heme: Leukocytosis -Trend CBC -Transfuse hemoglobin less than 7 -SCDs to BLE while in bed The high probability of a clinically significant, sudden or life threatening deterioration of the [multi] system(s) required my full and direct attention, intervention and personal management. The aggregate critical care time was [60] minutes. This time is in addition to time spent performing reported procedures but includes the following: [x] Data Review and interpretation [x] Patient assessment and monitoring of vital signs [x] Documentation [x] Medication orders and management Disposition Plan: icu Total Time Spent with Patient (Minutes): 60 History Interval history: This is a 76-year-old male with OHS, CVA x2, CHF with AICD in situ, CKD (? Stage IV) not on hemodialysis and DM who presented to the emergency department on 05/01 via EMS with complaints of feeling weak over the past couple days. Upon EMS arrival patient was found to be hypotensive SBP in the 50s and was subsequently placed on IV fluid and transported to [facility]. In the emergency department patient was found to have a systolic blood pressure in the 80s, GERALDINE with ATN, metabolic acidosis as well as fluid overload. Patient was admitted to IMCU initially but later required the use of vasopressors and was upgraded to ICU. Patient was admitted to the hospitalist service with r/o sepsis, GERALDINE with ATN, metabolic acidosis,, toxic metabolic encephalopathy, fluid overload with consults to [facility]. Hospital course to date: 05/02: Patient Levophed weaned, added midodrine. Per CCM he received additional 4 L LR bolus. 05/03: Started on zinc, Micah and vitamin C per nutrition, started on dobutamine. Wean Levophed as tolerated. Echocardiogram pending. Hospitalist Physical - Constitutional Vitals: Temp Pulse Resp BP Pulse Ox 99.6 F 116 H 18 98/54 99 05/03/22 04:00 05/03/22 19:00 05/03/22 19:00 05/03/22 19:00 05/03/22 19:00 General appearance: Present: obese - EENT Eyes: Present: PERRL, EOM intact ENT: clear oral mucosa, poor dentition - Neck Neck: Present: normal ROM - Respiratory Respiratory effort: normal Respiratory: bilateral: diminished - Cardiovascular Rhythm: regular Heart Sounds: Present: S1 & S2. Absent: systolic murmur, diastolic murmur - Extremities Extremities: no ischemia Extremity abnormal: edema, deformity, tenderness Peripheral Pulses: within normal limits - Abdominal General gastrointestinal: soft, non-tender, non-distended, normal bowel sounds - Integumentary Integumentary: Present: warm, dry - Psychiatric Psychiatric: cooperative - Neurologic Neurologic: moves all extremities, other (able ot hold conversation, follows iliana nesbitt) - Allied Health Allied health notes reviewed: nursing, RT, social work Results - Labs CBC & Chem 7: 05/03/22 04:00 05/03/22 04:00 Labs: Laboratory Last Values WBC 15.8 K/mm3 (4.5-11.0) H 05/03/22 04:00 RBC 2.58 M/mm3 (3.65-5.03) L 05/03/22 04:00 Hgb 8.3 gm/dl (11.8-15.2) L 05/03/22 04:00 Hct 24.7 % (35.5-45.6) L 05/03/22 04:00 MCV 96 fl (84-94) H 05/03/22 04:00 MCH 32 pg (28-32) 05/03/22 04:00 MCHC 33 % (32-34) 05/03/22 04:00 RDW 16.0 % (13.2-15.2) H 05/03/22 04:00 Plt Count 145 K/mm3 (140-440) 05/03/22 04:00 Lymph % (Auto) 7.6 % (13.4-35.0) L 05/02/22 05:09 [place] % (Auto) 3.9 % (0.0-7.3) 05/02/22 05:09 Eos % (Auto) 0.0 % (0.0-4.3) 05/02/22 05:09 Baso % (Auto) 0.5 % (0.0-1.8) 05/02/22 05:09 Lymph # (Auto) 1.3 K/mm3 (1.2-5.4) 05/02/22 05:09 [place] # (Auto) 0.7 K/mm3 (0.0-0.8) 05/02/22 05:09 Eos # (Auto) 0.0 K/mm3 (0.0-0.4) 05/02/22 05:09 Baso # (Auto) 0.1 K/mm3 (0.0-0.1) 05/02/22 05:09 Add Manual Diff Complete 05/01/22 17:36 Total Counted 100 05/01/22 17:36 Seg Neutrophils % 88.0 % (40.0-70.0) H 05/02/22 05:09 Seg Neuts % (Manual) 86.0 % (40.0-70.0) H 05/01/22 17:36 Band Neutrophils % 12.0 % 05/01/22 17:36 Lymphocytes % (Manual) 1.0 % (13.4-35.0) L 05/01/22 17:36 Reactive Lymphs % (Man) 0 % 05/01/22 17:36 Monocytes % (Manual) 0 % (0.0-7.3) 05/01/22 17:36 Eosinophils % (Manual) 0 % (0.0-4.3) 05/01/22 17:36 Basophils % (Manual) 0 % (0.0-1.8) 05/01/22 17:36 Metamyelocytes % 1.0 % 05/01/22 17:36 Myelocytes % 0 % 05/01/22 17:36 Promyelocytes % 0 % 05/01/22 17:36 Blast Cells % 0 % 05/01/22 17:36 Nucleated RBC % Not Reportable 05/01/22 17:36 Seg Neutrophils # 15.2 K/mm3 (1.8-7.7) H 05/02/22 05:09 Seg Neutrophils # Man 7.7 K/mm3 (1.8-7.7) 05/01/22 17:36 Band Neutrophils # 1.1 K/mm3 05/01/22 17:36 Lymphocytes # (Manual) 0.1 K/mm3 (1.2-5.4) L 05/01/22 17:36 Abs React Lymphs (Man) 0.0 K/mm3 05/01/22 17:36 Monocytes # (Manual) 0.0 K/mm3 (0.0-0.8) 05/01/22 17:36 Eosinophils # (Manual) 0.0 K/mm3 (0.0-0.4) 05/01/22 17:36 Basophils # (Manual) 0.0 K/mm3 (0.0-0.1) 05/01/22 17:36 Metamyelocytes # 0.1 K/mm3 05/01/22 17:36 Myelocytes # 0.0 K/mm3 05/01/22 17:36 Promyelocytes # 0.0 K/mm3 05/01/22 17:36 Blast Cells # 0.0 K/mm3 05/01/22 17:36 WBC Morphology Not Reportable 05/01/22 17:36 Hypersegmented Neuts Not Reportable 05/01/22 17:36 Hyposegmented Neuts Not Reportable 05/01/22 17:36 Hypogranular Neuts Not Reportable 05/01/22 17:36 Smudge Cells Not Reportable 05/01/22 17:36 Toxic Granulation Not Reportable 05/01/22 17:36 Toxic Vacuolation Not Reportable 05/01/22 17:36 Dohle Bodies Not Reportable 05/01/22 17:36 Pelger-Huet Anomaly Not Reportable 05/01/22 17:36 Arnold Rods Not Reportable 05/01/22 17:36 Platelet Estimate Consistent w auto 05/01/22 17:36 Clumped Platelets Not Reportable 05/01/22 17:36 Plt Clumps, EDTA Not Reportable 05/01/22 17:36 Large Platelets Not Reportable 05/01/22 17:36 Giant Platelets Not Reportable 05/01/22 17:36 Platelet Satelliting Not Reportable 05/01/22 17:36 Plt Morphology Comment Not Reportable 05/01/22 17:36 RBC Morphology Not Reportable 05/01/22 17:36 Dimorphic RBCs Not Reportable 05/01/22 17:36 Polychromasia Not Reportable 05/01/22 17:36 Hypochromasia Few 05/01/22 17:36 Poikilocytosis Not Reportable 05/01/22 17:36 Anisocytosis Not Reportable 05/01/22 17:36 Microcytosis Not Reportable 05/01/22 17:36 Macrocytosis Not Reportable 05/01/22 17:36 Spherocytes Not Reportable 05/01/22 17:36 Pappenheimer Bodies Not Reportable 05/01/22 17:36 Sickle Cells Not Reportable 05/01/22 17:36 Target Cells Not Reportable 05/01/22 17:36 Tear Drop Cells Not Reportable 05/01/22 17:36 Ovalocytes Not Reportable 05/01/22 17:36 Helmet Cells Not Reportable 05/01/22 17:36 Vizcarra-Bud Bodies Not Reportable 05/01/22 17:36 [place] Rings Not Reportable 05/01/22 17:36 Samaria Cells Not Reportable 05/01/22 17:36 Bite Cells Not Reportable 05/01/22 17:36 Crenated Cell Not Reportable 05/01/22 17:36 Elliptocytes Not Reportable 05/01/22 17:36 Acanthocytes (Spur) Not Reportable 05/01/22 17:36 Rouleaux Not Reportable 05/01/22 17:36 Hemoglobin C Crystals Not Reportable 05/01/22 17:36 Schistocytes Not Reportable 05/01/22 17:36 Malaria parasites Not Reportable 05/01/22 17:36 ESR 43 mm/Hr (0-20) 05/02/22 05:09 Harpreet Bodies Not Reportable 05/01/22 17:36 Hem Pathologist Commnt No 05/01/22 17:36 Sodium 136 mmol/L (137-145) L 05/03/22 04:00 Potassium 3.5 mmol/L (3.6-5.0) L 05/03/22 04:00 Chloride 97.2 mmol/L (98-107) L 05/03/22 04:00 Carbon Dioxide 25 mmol/L (22-30) 05/03/22 04:00 Anion Gap 17 mmol/L 05/03/22 04:00 BUN 33 mg/dL (9-20) H 05/03/22 04:00 Creatinine 3.1 mg/dL (0.8-1.3) H 05/03/22 04:00 Estimated GFR 25 ml/min 05/03/22 04:00 BUN/Creatinine Ratio 11 % 05/03/22 04:00 Glucose 138 mg/dL (75-100) H 05/03/22 04:00 POC Glucose 130 mg/dL (70-105) H 05/03/22 14:07 Lactic Acid 5.60 mmol/L (0.7-2.0) H* 05/03/22 Unknown Calcium 6.3 mg/dL (8.4-10.2) L 05/03/22 04:00 Magnesium 1.60 mg/dL (1.7-2.3) L 05/01/22 22:57 Total Bilirubin 0.30 mg/dL (0.1-1.2) 05/02/22 05:09 AST 18 units/L (5-40) 05/02/22 05:09 ALT 7 units/L (7-56) 05/02/22 05:09 Alkaline Phosphatase 113 units/L (35-129) 05/02/22 05:09 C-Reactive Protein 16.10 mg/dL (0.00-1.30) H 05/01/22 22:57 NT-Pro-B Natriuret Pep 85167 pg/mL (0-900) H 05/01/22 22:57 Total Protein 6.0 g/dL (6.3-8.2) L D 05/02/22 05:09 Albumin 1.6 g/dL (3.9-5) L 05/02/22 05:09 Albumin/Globulin Ratio 0.4 % 05/02/22 05:09 TSH 0.918 mlU/mL (0.270-4.200) 05/01/22 22:57 Free T4 0.96 ng/dL (0.76-1.46) 05/01/22 22:57 Urine Color Yellow (Yellow) 05/02/22 01:24 Urine Turbidity Clear (Clear) 05/02/22 01:24 Specific Abrams (Man) 1.015 (1.003-1.030) 05/02/22 01:24 Ur Protein (Man) <30 mg dl mg/dL (Negative) 05/02/22 01:24 Ur Ketones (Man) Negative (Negative) 05/02/22 01:24 Ur Nitrite (Man) Negative (Negative) 05/02/22 01:24 Ur Reducing Substances Not Reportable 05/02/22 01:24 Urine Bilirubin (Man) Negative (Negative) 05/02/22 01:24 Leukocyte Esterase (Man) Negative (Negative) 05/02/22 01:24 Urine WBC (Auto) < 1.0 /HPF (0.0-6.0) 05/02/22 01:24 Urine RBC (Auto) 1.0 /HPF (0.0-6.0) 05/02/22 01:24 U Epithel Cells (Auto) 1.0 /HPF (0-13.0) 05/02/22 01:24 Urine RBC (Manual) Negative (Negative) 05/02/22 01:24 Blood Type O POSITIVE 05/01/22 22:57 Antibody Screen Negative 05/01/22 22:57 Microbiology: Microbiology 05/01/22 17:36 Peripheral/Venous Blood Culture - Preliminary NO GROWTH AFTER 24 HOURS 05/01/22 17:36 Peripheral/Venous Blood Culture - Preliminary NO GROWTH AFTER 24 HOURS Venegas/IV: Voiding Method Condom Catheter Active Medications - Current Medications Current Medications: Generic Name Dose Route Start Last Admin Trade Name Freq PRN Reason Stop Dose Admin Acetaminophen 650 mg 05/01/22 20:29 Acetaminophen 325 Mg Tab PO Q6H PRN Pain MILD(1-3)/Fever >100.5/BROWN Albuterol 2.5 mg 05/03/22 12:00 05/03/22 16:50 Albuterol 2.5 Mg/3 Ml Nebu IH 2.5 mg QIDRT ALEX Administration Ascorbic Acid 500 mg 05/03/22 12:00 05/03/22 12:48 Ascorbic Acid 500 Mg Tab PO 500 mg BID ALEX Administration Benzocaine/Menthol 1 each 05/02/22 11:00 05/02/22 20:33 Benzocaine/Menthol Lozenge MM 1 each Q2H PRN Administration Sore Throat NORepinephrine/NS 8 MG-250 ML 8 mg in 250 mls @ 22.113 mls/hr 05/01/22 18:00 05/03/22 05:39 Norepinephrine/Ns 8 Mg-250 Ml (Double Conc) IV 0.03 mcg/kg/min TITRATE ALEX 6.634 mls/hr Titration Protocol 0.1 MCG/KG/MIN Dobutamine HCl/Dextrose 500 mg in 250 mls @ 8.845 mls/hr 05/03/22 12:00 05/03/22 12:48 Dobutrex Drip 500mg/D5w 250ml IV 2.5 mcg/kg/min DIRECT ALEX 8.845 mls/hr Administration Protocol 2.5 MCG/KG/MIN Midodrine 10 mg 05/03/22 12:00 05/03/22 16:45 Midodrine 10 Mg Tab PO 10 mg TID@0800,1200,1600 ALEX Administration Oxycodone/Acetaminophen 1 tab 05/01/22 20:29 Oxycodone /Acetaminophen 5-325mg Tab PO Q6H PRN Pain, Moderate (4-6) Sodium Chloride 10 ml 05/01/22 22:00 05/03/22 09:31 Sodium Chloride 0.9% 10 Ml Flush Syringe IV 10 ml BID ALEX Administration Sodium Chloride 10 ml 05/01/22 20:29 Sodium Chloride 0.9% 10 Ml Flush Syringe IV PRN PRN LINE FLUSH Zinc Sulfate 220 mg 05/03/22 22:00 Zinc Sulfate 220 Mg Cap PO BID ALEX Nutrition/Malnutrition Assess - Dietary Evaluation Nutrition/Malnutrition Findings: Nutrition Notes Start: 05/03/22 13:40 Freq: Status: Active Protocol: Document 05/03/22 13:40 CM (Rec: 05/03/22 14:02 CM [id number]) Co-Sign 05/03/22 13:40 WW Nutrition Notes 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 Pt reported UBW of 249lb and wt loss of ~90lb beginning in June 2021 d/t unspecified illness. Pt currently ~9lb greater than UBW at this time - BLE edema noted at time of visit (May be masking weight loss). Weight Status Obese Subjective/Other Information RD consult for malnutrition screening score 2 and skin risk assessment. Nutrition focused physical assessment performed indicating moderate muscle wasting and subcutaneous fat loss - indicative of moderate malnutrition in setting of chronic disease. Pt reported decreased appetite since June 2021, but denied N/V, abdominal pain, or difficulty chewing/swallowing . No %PO intake at this time. Stage III (R Heel) / Stage II (Sacrum) Pressure ulcers and dry/flaky skin breakdown of LE . Recommended Zinc Sulfate, Vitamin C, and Micah BID administration. Burn Absent Trauma Absent GI Symptoms None Food Allergy No Skin Integrity/Comment Dry, flaking, breakdown, III Ulcer Minimum of two criteria Yes Body Fat Depletion Moderate depletion (severe) Muscle Mass Moderate Depletion (severe) #2 Nutrition Diagnosis Altered nutrition-related laboratory values Etiology GERALDINE on CKD As Evidenced by Signs and Symptoms BUN 33 / Cr 3.1 / Na 136 #1 Nutrition Diagnosis Malnutrition Comments: Moderate in setting of chronic disease. Etiology Decreased appetite ~10mo As Evidenced by Signs and Symptoms Pt report of decreased appetite over ~10mo, moderate muscle wasting (temples, acromion) / subcutaneous fat loss (triceps). Is patient on ventilator? No Is Patient Ambulatory and/or Out of Bed No REE-(Mcintosh-St. Jeor-confined to bed) 0050.797 Calculation Used for Recommendations Mcintosh-St Jeor Additional Notes Protein: 0.9-1.2g/kg AdjBW; 83 -111g PRO q day Fluid: 500mL + total output or per team Nutrition Intervention Change Diet Order: Recommend changing diet to renal diet if blood glucose is WNL. Add Supplement/Snack (indicate name/kcal Micah BID /protein ) Provides kCal: 180 Goal #1 Pt to consume >75% of estimated energy/protein needs through current diet order Goal #2 Normalize nutrition-related labs through diet modification Additional Comments Monitor %PO intake, nutrition- related lab values, wt status, and integumentary system
[2022-05-03] MEDS ORDERED: SIMETHICONE 80 MG CHEW TAB PO PRN (20:00)
[2022-05-03] MEDS: ZINC SULFATE 220 MG CAP PO SCH (22:02)
[2022-05-03] MEDS: BENZOCAINE/MENTHOL LOZENGE MM PRN (22:08)
[2022-05-04 05:22] LABS: Hematocrit 24.2 % (35.5-45.6); Hemoglobin 8.2 gm/dl (11.8-15.2); Mean Corpuscular HGB Conc 34 % (32-34); Mean Corpuscular Volume 96 fl (84-94); Platelet Count 132 K/mm3 (140-440); Red Blood Count 2.52 M/mm3 (3.65-5.03); Red Cell Distribution Width 16.3 % (13.2-15.2)
[2022-05-04 05:40] LABS: Calcium 6.6 mg/dL (8.4-10.2)
[2022-05-04] MEDS: ALBUTEROL 2.5 MG/3 ML NEBU IH SCH (08:49)
[2022-05-04] MEDS: ASCORBIC ACID 500 MG TAB PO SCH ×2 (09:35→21:34)
[2022-05-04] MEDS: MIDODRINE 10 MG TAB PO SCH ×3 (09:35→16:35)
[2022-05-04] MEDS: ZINC SULFATE 220 MG CAP PO SCH ×2 (09:35→21:37)
[2022-05-04] MEDS: ONDANSETRON 4 MG/2 ML INJ IV PRN (09:35)
--- NOTE | 2022-05-04 09:58 | Progress Note ---
Assessment and Plan 66 y/o male with hypotension of unknown etiology 05/04/22: Will try low dose Coreg today now that BP is better. Continue to monitor in ICU. Echo still not read. 05/03/22: Hold further fluids and stop continuous fluids. Will attempt in otropes. Follow up echo results. If inotropes done work, will consider stress dose steroids. 1. Most likely dry given BUN/CR. Will give more fluids 2. wean pressors to off for maps >65 CCT 31 minutes. Subjective Date of service: 05/04/22 Interval history: Stable on room air. Had some tachycardia this am into the 140's. Maps are good. Objective - Constitutional Vitals: Vital Signs - 12hr 05/03/22 05/03/22 05/03/22 22:00 22:15 22:30 Temperature Pulse Rate 112 H 111 H 112 H Pulse Rate [ Anterior Bilateral Throughout] Respiratory 18 21 15 Rate Respiratory Rate [Anterior Bilateral Throughout] Blood Pressure 104/53 107/53 107/54 O2 Sat by Pulse 99 100 100 Oximetry 05/03/22 05/03/22 05/03/22 22:45 23:00 23:05 Temperature 99.4 F Pulse Rate 112 H 111 H 111 H Pulse Rate [ Anterior Bilateral Throughout] Respiratory 21 22 18 Rate Respiratory Rate [Anterior Bilateral Throughout] Blood Pressure 97/50 105/53 O2 Sat by Pulse 99 100 99 Oximetry 05/03/22 05/03/22 05/03/22 23:15 23:28 23:30 Temperature Pulse Rate 113 H 111 H 110 H Pulse Rate [ Anterior Bilateral Throughout] Respiratory 22 22 22 Rate Respiratory Rate [Anterior Bilateral Throughout] Blood Pressure 105/52 105/52 103/53 O2 Sat by Pulse 99 99 99 Oximetry 05/03/22 05/04/22 05/04/22 23:45 00:00 00:15 Temperature Pulse Rate 111 H 108 H 110 H Pulse Rate [ Anterior Bilateral Throughout] Respiratory 21 21 18 Rate Respiratory Rate [Anterior Bilateral Throughout] Blood Pressure 95/46 96/48 100/42 O2 Sat by Pulse 98 97 97 Oximetry 05/04/22 05/04/22 05/04/22 00:30 00:45 01:00 Temperature Pulse Rate 110 H 111 H 109 H Pulse Rate [ Anterior Bilateral Throughout] Respiratory 21 22 19 Rate Respiratory Rate [Anterior Bilateral Throughout] Blood Pressure 99/48 102/50 94/49 O2 Sat by Pulse 98 98 97 Oximetry 05/04/22 05/04/22 05/04/22 01:15 01:30 01:45 Temperature Pulse Rate 110 H 112 H 111 H Pulse Rate [ Anterior Bilateral Throughout] Respiratory 20 21 22 Rate Respiratory Rate [Anterior Bilateral Throughout] Blood Pressure 99/49 100/52 106/54 O2 Sat by Pulse 99 99 99 Oximetry 05/04/22 05/04/22 05/04/22 02:00 02:15 02:30 Temperature Pulse Rate 110 H 111 H 117 H Pulse Rate [ Anterior Bilateral Throughout] Respiratory 19 18 20 Rate Respiratory Rate [Anterior Bilateral Throughout] Blood Pressure 112/55 106/55 111/63 O2 Sat by Pulse 98 98 97 Oximetry 05/04/22 05/04/22 05/04/22 02:45 03:00 03:15 Temperature Pulse Rate 111 H 112 H 110 H Pulse Rate [ Anterior Bilateral Throughout] Respiratory 21 20 17 Rate Respiratory Rate [Anterior Bilateral Throughout] Blood Pressure 104/56 109/54 101/52 O2 Sat by Pulse 99 99 98 Oximetry 05/04/22 05/04/22 05/04/22 03:30 03:35 03:46 Temperature 98.6 F Pulse Rate 111 H 111 H Pulse Rate [ Anterior Bilateral Throughout] Respiratory 16 22 Rate Respiratory Rate [Anterior Bilateral Throughout] Blood Pressure 101/52 95/51 O2 Sat by Pulse 98 98 Oximetry 05/04/22 05/04/22 05/04/22 04:00 04:16 04:30 Temperature Pulse Rate 108 H 116 H 114 H Pulse Rate [ Anterior Bilateral Throughout] Respiratory 18 22 24 Rate Respiratory Rate [Anterior Bilateral Throughout] Blood Pressure 95/56 105/55 113/54 O2 Sat by Pulse 98 99 99 Oximetry 05/04/22 05/04/22 05/04/22 04:45 05:00 05:15 Temperature Pulse Rate 113 H 107 H 112 H Pulse Rate [ Anterior Bilateral Throughout] Respiratory 20 23 17 Rate Respiratory Rate [Anterior Bilateral Throughout] Blood Pressure 103/52 93/53 104/52 O2 Sat by Pulse 98 98 97 Oximetry 05/04/22 05/04/22 05/04/22 05:30 05:45 06:00 Temperature Pulse Rate 113 H 115 H 116 H Pulse Rate [ Anterior Bilateral Throughout] Respiratory 16 19 15 Rate Respiratory Rate [Anterior Bilateral Throughout] Blood Pressure 106/58 109/50 97/49 O2 Sat by Pulse 99 99 98 Oximetry 05/04/22 05/04/22 05/04/22 06:15 06:30 06:45 Temperature Pulse Rate 118 H 116 H 116 H Pulse Rate [ Anterior Bilateral Throughout] Respiratory 14 20 14 Rate Respiratory Rate [Anterior Bilateral Throughout] Blood Pressure 109/55 99/54 100/55 O2 Sat by Pulse 97 97 98 Oximetry 05/04/22 05/04/22 07:00 08:49 Temperature Pulse Rate 118 H Pulse Rate [ 123 H Anterior Bilateral Throughout] Respiratory 20 Rate Respiratory 16 Rate [Anterior Bilateral Throughout] Blood Pressure 100/56 O2 Sat by Pulse 98 Oximetry General appearance: Present: no acute distress, well-nourished - EENT ENT: hearing intact - Neck Neck: supple - Respiratory Respiratory effort: normal - Cardiovascular Rhythm: other (tachy) Extremities: no ischemia, pulses intact - Gastrointestinal General gastrointestinal: Present: soft, non-tender Rectal Exam: deferred - Genitourinary Male genitourinary: deferred - Labs CBC & Chem 7: 05/04/22 04:00 05/04/22 04:00 Labs: Abnormal lab results 05/03/22 05/03/22 05/03/22 Range/Units 14:07 19:33 23:04 WBC (4.5-11.0) K/mm3 RBC (3.65-5.03) M/mm3 Hgb (11.8-15.2) gm/dl Hct (35.5-45.6) % MCV (84-94) fl MCH (28-32) pg RDW (13.2-15.2) % Plt Count (140-440) K/mm3 Sodium (137-145) mmol/L Chloride (98-107) mmol/L BUN (9-20) mg/dL Creatinine (0.8-1.3) mg/dL POC Glucose 130 H 131 H 113 H (70-105) mg/dL Lactic Acid (0.7-2.0) mmol/L Calcium (8.4-10.2) mg/dL 05/03/22 05/04/22 05/04/22 Range/Units Unknown 04:00 04:00 WBC 15.7 H (4.5-11.0) K/mm3 RBC 2.52 L (3.65-5.03) M/mm3 Hgb 8.2 L (11.8-15.2) gm/dl Hct 24.2 L (35.5-45.6) % MCV 96 H (84-94) fl MCH 33 H (28-32) pg RDW 16.3 H (13.2-15.2) % Plt Count 132 L (140-440) K/mm3 Sodium 135 L (137-145) mmol/L Chloride 95.6 L (98-107) mmol/L BUN 32 H (9-20) mg/dL Creatinine 2.9 H (0.8-1.3) mg/dL POC Glucose (70-105) mg/dL Lactic Acid 5.60 H* (0.7-2.0) mmol/L Calcium 6.6 L (8.4-10.2) mg/dL 05/04/22 Range/Units 04:00 WBC (4.5-11.0) K/mm3 RBC (3.65-5.03) M/mm3 Hgb (11.8-15.2) gm/dl Hct (35.5-45.6) % MCV (84-94) fl MCH (28-32) pg RDW (13.2-15.2) % Plt Count (140-440) K/mm3 Sodium (137-145) mmol/L Chloride (98-107) mmol/L BUN (9-20) mg/dL Creatinine (0.8-1.3) mg/dL POC Glucose (70-105) mg/dL Lactic Acid 7.70 H* (0.7-2.0) mmol/L Calcium (8.4-10.2) mg/dL Medications & Allergies - Medications Allergies/Adverse Reactions: Allergies No Known Allergies Allergy (Verified 05/01/22 12:55) Home Medications: Home Medications Medication Instructions Recorded Confirmed Last Taken Type No Known Home Medications [No 05/02/22 05/02/22 Unknown History Reported Home Medications] Active Medications: Generic Name Dose Route Start Last Admin Trade Name Freq PRN Reason Stop Dose Admin Acetaminophen 650 mg 05/01/22 20:29 Acetaminophen 325 Mg Tab PO Q6H PRN Pain MILD(1-3)/Fever >100.5/BROWN Ascorbic Acid 500 mg 05/03/22 12:00 05/04/22 09:35 Ascorbic Acid 500 Mg Tab PO 500 mg BID ALEX Administration Benzocaine/Menthol 1 each 05/02/22 11:00 05/03/22 22:08 Benzocaine/Menthol Lozenge MM 1 each Q2H PRN Administration Sore Throat Carvedilol 6.25 mg 05/04/22 10:00 Carvedilol 6.25 Mg Tab PO BID ALEX NORepinephrine/NS 8 MG-250 ML 8 mg in 250 mls @ 22.113 mls/hr 05/01/22 18:00 05/03/22 05:39 Norepinephrine/Ns 8 Mg-250 Ml (Double Conc) IV 0.03 mcg/kg/min TITRATE ALEX 6.634 mls/hr Titration Protocol 0.1 MCG/KG/MIN Midodrine 10 mg 05/03/22 12:00 05/04/22 09:35 Midodrine 10 Mg Tab PO 10 mg TID@0800,1200,1600 ALEX Administration Ondansetron HCl 4 mg 05/04/22 09:29 05/04/22 09:35 Ondansetron 4 Mg/2 Ml Inj IV 4 mg Q4H PRN Administration Nausea And Vomiting Oxycodone/Acetaminophen 1 tab 05/01/22 20:29 Oxycodone /Acetaminophen 5-325mg Tab PO Q6H PRN Pain, Moderate (4-6) Simethicone 80 mg 05/03/22 20:00 05/03/22 20:40 Simethicone 80 Mg Chew Tab PO 80 mg Q6H PRN Administration Gas pain Sodium Chloride 10 ml 05/01/22 22:00 05/03/22 22:02 Sodium Chloride 0.9% 10 Ml Flush Syringe IV 10 ml BID ALEX Administration Sodium Chloride 10 ml 05/01/22 20:29 05/04/22 09:35 Sodium Chloride 0.9% 10 Ml Flush Syringe IV 10 ml PRN PRN Administration LINE FLUSH Zinc Sulfate 220 mg 05/03/22 22:00 05/04/22 09:35 Zinc Sulfate 220 Mg Cap PO 220 mg BID ALEX Administration
[2022-05-04] MEDS: carvediloL 6.25 MG TAB PO SCH ×2 (11:00→21:36)
--- NOTE | 2022-05-04 14:30 | Progress Note ---
<ADRIAN MART - Last Filed: 05/04/22 15:01> Assessment and Plan Assessment and plan: This is a 76-year-old male with OHS, CVA x2, CHF and AICD in situ, CKD admitted with GERALDINE, metabolic acidosis, toxic metabolic encephalopathy, fluid overload Neuro: Acute metabolic encephalopathy (resolved), h/o CVA x2 -Reorientation as needed -Maintain sleep-wake cycle -As needed analgesia Cardiac: Hypotension, lactic acidosis, h/o CHF with AICD in situ -Blood pressure monitoring per protocol -Vasopressor support with vasopressin -MAP goal greater than 65 -Midodrine p.o. -Echocardiogram showed shows severe global hypokinesis of left ventricle, LVEF 20%, trace pericardial effusion, moderate left pleural effusion -s/p Dobutamine gtt -Coreg -proBNP [id number] -S/p 3500 mL normal saline in the ED -S/p 4 L LR in the ICU Respiratory: NAD -CCM consulted, appreciate recommendations -Pulmonary hygiene -SPO2 monitoring -Supplemental oxygen as needed GI: Severe protein calorie malnutrition -Cardiac cc diet -PPI -CT abdomen/pelvis without contrast shows no abnormality noted within the abdomen or pelvis, moderate amount of calcified plaque seen throughout the abdominal aorta and common iliac arteries with out associated aneurysm, no GI abnormality other than simple sigmoid diverticulosis : Acute on chronic kidney disease -Monitor intake and output -Renally dose medications -Avoid nephrotoxic medications -Will not replete hypokalemia in setting of BUN/creatinine of 3.4/36 -Trend BMP ID: SIRS, Chronic lymphedema -Presented with tachycardia, hypotension, acute kidney injury, leukocytosis with no definite source of infection noted -f/u blood culture -WOCN consulted -Monitor WBC and temperature curve Endo: h/o DM -Avoid hypoglycemia -SSI -Accu-Cheks q. ACH S Heme: Leukocytosis -Trend CBC -Transfuse hemoglobin less than 7 -SCDs to BLE while in bed The high probability of a clinically significant, sudden or life threatening deterioration of the [multi] system(s) required my full and direct attention, intervention and personal management. The aggregate critical care time was [60] minutes. This time is in addition to time spent performing reported procedures but includes the following: [x] Data Review and interpretation [x] Patient assessment and monitoring of vital signs [x] Documentation [x] Medication orders and management Disposition Plan: icu Total Time Spent with Patient (Minutes): 60 History Interval history: This is a 76-year-old male with OHS, CVA x2, CHF with AICD in situ, CKD (? Stage IV) not on hemodialysis and DM who presented to the emergency department on 05/01 via EMS with complaints of feeling weak over the past couple days. Upon EMS arrival patient was found to be hypotensive SBP in the 50s and was subsequently placed on IV fluid and transported to [facility]. In the emergency dep artment patient was found to have a systolic blood pressure in the 80s, GERALDINE with ATN, metabolic acidosis as well as fluid overload. Patient was admitted to IMCU initially but later required the use of vasopressors and was upgraded to ICU. Patient was admitted to the hospitalist service with r/o sepsis, GERALDINE with ATN, metabolic acidosis,, toxic metabolic encephalopathy, fluid overload with consults to [facility]. Hospital course to date: 05/02: Patient Levophed weaned, added midodrine. Per [facility] he received additional 4 L LR bolus. 05/03: Started on zinc, Micah and vitamin C per nutrition, started on dobutamine. Wean Levophed as tolerated. Echocardiogram pending. 05/04: Remains on dobutamine drip in the morning but was discontinued later. Now started on Coreg twice daily. We will continue to monitor in the ICU and possible transfer to floor tomorrow. Hospitalist Physical - Constitutional Vitals: Temp Pulse Resp BP Pulse Ox 98.6 F 114 H 22 100/53 96 05/04/22 03:35 05/04/22 13:30 05/04/22 13:30 05/04/22 13:30 05/04/22 13:30 General appearance: Present: no acute distress, well-nourished - EENT Eyes: Present: PERRL, EOM intact ENT: hearing intact, clear oral mucosa, dentition normal - Neck Neck: Present: normal ROM - Respiratory Respiratory effort: normal Respiratory: bilateral: diminished - Cardiovascular Rhythm: regular Heart Sounds: Present: S1 & S2. Absent: systolic murmur, diastolic murmur - Extremities Extremities: no ischemia, pulses intact, pulses symmetrical Extremity abnormal: edema, ulceration Peripheral Pulses: within normal limits - Abdominal General gastrointestinal: soft, non-tender, non-distended, normal bowel sounds - Integumentary Integumentary: Present: warm, dry - Psychiatric Psychiatric: appropriate mood/affect, intact judgment & insight, cooperative - Neurologic Neurologic: CNII-XII intact, no focal deficits, moves all extremities - Allied Health Allied health notes reviewed: nursing Results - Labs CBC & Chem 7: 05/04/22 04:00 05/04/22 04:00 Labs: Laboratory Last Values WBC 15.7 K/mm3 (4.5-11.0) H 05/04/22 04:00 RBC 2.52 M/mm3 (3.65-5.03) L 05/04/22 04:00 Hgb 8.2 gm/dl (11.8-15.2) L 05/04/22 04:00 Hct 24.2 % (35.5-45.6) L 05/04/22 04:00 MCV 96 fl (84-94) H 05/04/22 04:00 MCH 33 pg (28-32) H 05/04/22 04:00 MCHC 34 % (32-34) 05/04/22 04:00 RDW 16.3 % (13.2-15.2) H 05/04/22 04:00 Plt Count 132 K/mm3 (140-440) L 05/04/22 04:00 Lymph % (Auto) 7.6 % (13.4-35.0) L 05/02/22 05:09 [place] % (Auto) 3.9 % (0.0-7.3) 05/02/22 05:09 Eos % (Auto) 0.0 % (0.0-4.3) 05/02/22 05:09 Baso % (Auto) 0.5 % (0.0-1.8) 05/02/22 05:09 Lymph # (Auto) 1.3 K/mm3 (1.2-5.4) 05/02/22 05:09 [place] # (Auto) 0.7 K/mm3 (0.0-0.8) 05/02/22 05:09 Eos # (Auto) 0.0 K/mm3 (0.0-0.4) 05/02/22 05:09 Baso # (Auto) 0.1 K/mm3 (0.0-0.1) 05/02/22 05:09 Add Manual Diff Complete 05/01/22 17:36 Total Counted 100 05/01/22 17:36 Seg Neutrophils % 88.0 % (40.0-70.0) H 05/02/22 05:09 Seg Neuts % (Manual) 86.0 % (40.0-70.0) H 05/01/22 17:36 Band Neutrophils % 12.0 % 05/01/22 17:36 Lymphocytes % (Manual) 1.0 % (13.4-35.0) L 05/01/22 17:36 Reactive Lymphs % (Man) 0 % 05/01/22 17:36 Monocytes % (Manual) 0 % (0.0-7.3) 05/01/22 17:36 Eosinophils % (Manual) 0 % (0.0-4.3) 05/01/22 17:36 Basophils % (Manual) 0 % (0.0-1.8) 05/01/22 17:36 Metamyelocytes % 1.0 % 05/01/22 17:36 Myelocytes % 0 % 05/01/22 17:36 Promyelocytes % 0 % 05/01/22 17:36 Blast Cells % 0 % 05/01/22 17:36 Nucleated RBC % Not Reportable 05/01/22 17:36 Seg Neutrophils # 15.2 K/mm3 (1.8-7.7) H 05/02/22 05:09 Seg Neutrophils # Man 7.7 K/mm3 (1.8-7.7) 05/01/22 17:36 Band Neutrophils # 1.1 K/mm3 05/01/22 17:36 Lymphocytes # (Manual) 0.1 K/mm3 (1.2-5.4) L 05/01/22 17:36 Abs React Lymphs (Man) 0.0 K/mm3 05/01/22 17:36 Monocytes # (Manual) 0.0 K/mm3 (0.0-0.8) 05/01/22 17:36 Eosinophils # (Manual) 0.0 K/mm3 (0.0-0.4) 05/01/22 17:36 Basophils # (Manual) 0.0 K/mm3 (0.0-0.1) 05/01/22 17:36 Metamyelocytes # 0.1 K/mm3 05/01/22 17:36 Myelocytes # 0.0 K/mm3 05/01/22 17:36 Promyelocytes # 0.0 K/mm3 05/01/22 17:36 Blast Cells # 0.0 K/mm3 05/01/22 17:36 WBC Morphology Not Reportable 05/01/22 17:36 Hypersegmented Neuts Not Reportable 05/01/22 17:36 Hyposegmented Neuts Not Reportable 05/01/22 17:36 Hypogranular Neuts Not Reportable 05/01/22 17:36 Smudge Cells Not Reportable 05/01/22 17:36 Toxic Granulation Not Reportable 05/01/22 17:36 Toxic Vacuolation Not Reportable 05/01/22 17:36 Dohle Bodies Not Reportable 05/01/22 17:36 Pelger-Huet Anomaly Not Reportable 05/01/22 17:36 Arnold Rods Not Reportable 05/01/22 17:36 Platelet Estimate Consistent w auto 05/01/22 17:36 Clumped Platelets Not Reportable 05/01/22 17:36 Plt Clumps, EDTA Not Reportable 05/01/22 17:36 Large Platelets Not Reportable 05/01/22 17:36 Giant Platelets Not Reportable 05/01/22 17:36 Platelet Satelliting Not Reportable 05/01/22 17:36 Plt Morphology Comment Not Reportable 05/01/22 17:36 RBC Morphology Not Reportable 05/01/22 17:36 Dimorphic RBCs Not Reportable 05/01/22 17:36 Polychromasia Not Reportable 05/01/22 17:36 Hypochromasia Few 05/01/22 17:36 Poikilocytosis Not Reportable 05/01/22 17:36 Anisocytosis Not Reportable 05/01/22 17:36 Microcytosis Not Reportable 05/01/22 17:36 Macrocytosis Not Reportable 05/01/22 17:36 Spherocytes Not Reportable 05/01/22 17:36 Pappenheimer Bodies Not Reportable 05/01/22 17:36 Sickle Cells Not Reportable 05/01/22 17:36 Target Cells Not Reportable 05/01/22 17:36 Tear Drop Cells Not Reportable 05/01/22 17:36 Ovalocytes Not Reportable 05/01/22 17:36 Helmet Cells Not Reportable 05/01/22 17:36 [place] Bodies Not Reportable 05/01/22 17:36 [place] Rings Not Reportable 05/01/22 17:36 [place] Cells Not Reportable 05/01/22 17:36 Bite Cells Not Reportable 05/01/22 17:36 Crenated Cell Not Reportable 05/01/22 17:36 Elliptocytes Not Reportable 05/01/22 17:36 Acanthocytes (Spur) Not Reportable 05/01/22 17:36 Rouleaux Not Reportable 05/01/22 17:36 Hemoglobin C Crystals Not Reportable 05/01/22 17:36 Schistocytes Not Reportable 05/01/22 17:36 Malaria parasites Not Reportable 05/01/22 17:36 ESR 43 mm/Hr (0-20) 05/02/22 05:09 Harpreet Bodies Not Reportable 05/01/22 17:36 Hem Pathologist Commnt No 05/01/22 17:36 Sodium 135 mmol/L (137-145) L 05/04/22 04:00 Potassium 3.8 mmol/L (3.6-5.0) 05/04/22 04:00 Chloride 95.6 mmol/L (98-107) L 05/04/22 04:00 Carbon Dioxide 23 mmol/L (22-30) 05/04/22 04:00 Anion Gap 20 mmol/L 05/04/22 04:00 BUN 32 mg/dL (9-20) H 05/04/22 04:00 Creatinine 2.9 mg/dL (0.8-1.3) H 05/04/22 04:00 Estimated GFR 27 ml/min 05/04/22 04:00 BUN/Creatinine Ratio 11 % 05/04/22 04:00 Glucose 92 mg/dL (75-100) 05/04/22 04:00 POC Glucose 108 mg/dL (70-105) H 05/04/22 12:10 Lactic Acid 5.80 mmol/L (0.7-2.0) H* 05/04/22 09:09 Calcium 6.6 mg/dL (8.4-10.2) L 05/04/22 04:00 Magnesium 1.60 mg/dL (1.7-2.3) L 05/01/22 22:57 Total Bilirubin 0.30 mg/dL (0.1-1.2) 05/02/22 05:09 AST 18 units/L (5-40) 05/02/22 05:09 ALT 7 units/L (7-56) 05/02/22 05:09 Alkaline Phosphatase 113 units/L (35-129) 05/02/22 05:09 C-Reactive Protein 16.10 mg/dL (0.00-1.30) H 05/01/22 22:57 NT-Pro-B Natriuret Pep 05479 pg/mL (0-900) H 05/01/22 22:57 Total Protein 6.0 g/dL (6.3-8.2) L D 05/02/22 05:09 Albumin 1.6 g/dL (3.9-5) L 05/02/22 05:09 Albumin/Globulin Ratio 0.4 % 05/02/22 05:09 TSH 0.918 mlU/mL (0.270-4.200) 05/01/22 22:57 Free T4 0.96 ng/dL (0.76-1.46) 05/01/22 22:57 Urine Color Yellow (Yellow) 05/02/22 01:24 Urine Turbidity Clear (Clear) 05/02/22 01:24 Specific [place] (Man) 1.015 (1.003-1.030) 05/02/22 01:24 Ur Protein (Man) <30 mg dl mg/dL (Negative) 05/02/22 01:24 Ur Ketones (Man) Negative (Negative) 05/02/22 01:24 Ur Nitrite (Man) Negative (Negative) 05/02/22 01:24 Ur Reducing Substances Not Reportable 05/02/22 01:24 Urine Bilirubin (Man) Negative (Negative) 05/02/22 01:24 Leukocyte Esterase (Man) Negative (Negative) 05/02/22 01:24 Urine WBC (Auto) < 1.0 /HPF (0.0-6.0) 05/02/22 01:24 Urine RBC (Auto) 1.0 /HPF (0.0-6.0) 05/02/22 01:24 U Epithel Cells (Auto) 1.0 /HPF (0-13.0) 05/02/22 01:24 Urine RBC (Manual) Negative (Negative) 05/02/22 01:24 Blood Type O POSITIVE 05/01/22 22:57 Antibody Screen Negative 05/01/22 22:57 Microbiology: Microbiology 05/01/22 17:36 Peripheral/Venous Blood Culture - Preliminary NO GROWTH AFTER 48 HOURS 05/01/22 17:36 Peripheral/Venous Blood Culture - Preliminary NO GROWTH AFTER 48 HOURS Venegas/IV: Voiding Method Condom Catheter Active Medications - Current Medications Current Medications: Generic Name Dose Route Start Last Admin Trade Name Freq PRN Reason Stop Dose Admin Acetaminophen 650 mg 05/01/22 20:29 Acetaminophen 325 Mg Tab PO Q6H PRN Pain MILD(1-3)/Fever >100.5/BROWN Ascorbic Acid 500 mg 05/03/22 12:00 05/04/22 09:35 Ascorbic Acid 500 Mg Tab PO 500 mg BID ALEX Administration Benzocaine/Menthol 1 each 05/02/22 11:00 05/03/22 22:08 Benzocaine/Menthol Lozenge MM 1 each Q2H PRN Administration Sore Throat Carvedilol 6.25 mg 05/04/22 11:00 Carvedilol 6.25 Mg Tab PO BID ALEX Midodrine 10 mg 05/03/22 12:00 05/04/22 13:00 Midodrine 10 Mg Tab PO 10 mg TID@0800,1200,1600 [facility] Administration Ondansetron HCl 4 mg 05/04/22 09:29 05/04/22 09:35 Ondansetron 4 Mg/2 Ml Inj IV 4 mg Q4H PRN Administration Nausea And Vomiting Oxycodone/Acetaminophen 1 tab 05/01/22 20:29 Oxycodone /Acetaminophen 5-325mg Tab PO Q6H PRN Pain, Moderate (4-6) Simethicone 80 mg 05/03/22 20:00 05/03/22 20:40 Simethicone 80 Mg Chew Tab PO 80 mg Q6H PRN Administration Gas pain Sodium Chloride 10 ml 05/01/22 22:00 05/04/22 13:27 Sodium Chloride 0.9% 10 Ml Flush Syringe IV 10 ml BID ALEX Administration Sodium Chloride 10 ml 05/01/22 20:29 05/04/22 09:35 Sodium Chloride 0.9% 10 Ml Flush Syringe IV 10 ml PRN PRN Administration LINE FLUSH Zinc Sulfate 220 mg 05/03/22 22:00 05/04/22 09:35 Zinc Sulfate 220 Mg Cap PO 220 mg BID ALEX Administration Nutrition/Malnutrition Assess - Dietary Evaluation Nutrition/Malnutrition Findings: Nutrition Notes Start: 05/03/22 13:40 Freq: Status: Active Protocol: Document 05/03/22 13:40 CM (Rec: 05/03/22 14:02 CM [email or web address]) Co-Sign 05/03/22 13:40 WW Nutrition Notes 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 Pt reported UBW of 249lb and wt loss of ~90lb beginning in June 2021 d/t unspecified illness. Pt currently ~9lb greater than UBW at this time - BLE edema noted at time of visit (May be masking weight loss). Weight Status Obese Subjective/Other Information RD consult for malnutrition screening score 2 and skin risk assessment. Nutrition focused physical assessment performed indicating moderate muscle wasting and subcutaneous fat loss - indicative of moderate malnutrition in setting of chronic disease. Pt reported decreased appetite since June 2021, but denied N/V, abdominal pain, or difficulty chewing/swallowing . No %PO intake at this time. Stage III (R Heel) / Stage II (Sacrum) Pressure ulcers and dry/flaky skin breakdown of LE . Recommended Zinc Sulfate, Vitamin C, and Micah BID administration. Burn Absent Trauma Absent GI Symptoms None Food Allergy No Skin Integrity/Comment Dry, flaking, breakdown, III Ulcer Minimum of two criteria Yes Body Fat Depletion Moderate depletion (severe) Muscle Mass Moderate Depletion (severe) #2 Nutrition Diagnosis Altered nutrition-related laboratory values Etiology GERALDINE on CKD As Evidenced by Signs and Symptoms BUN 33 / Cr 3.1 / Na 136 #1 Nutrition Diagnosis Malnutrition Comments: Moderate in setting of chronic disease. Etiology Decreased appetite ~10mo As Evidenced by Signs and Symptoms Pt report of decreased appetite over ~10mo, moderate muscle wasting (temples, acromion) / subcutaneous fat loss (triceps). Is patient on ventilator? No Is Patient Ambulatory and/or Out of Bed No [facility] [phone] Calculation Used for Recommendations [facility] Additional Notes Protein: 0.9-1.2g/kg AdjBW; 83 -111g PRO q day Fluid: 500mL + total output or per team Nutrition Intervention Change Diet Order: Recommend changing diet to renal diet if blood glucose is WNL. Add Supplement/Snack (indicate name/kcal Micah BID /protein ) Provides kCal: 180 Goal #1 Pt to consume >75% of estimated energy/protein needs through current diet order Goal #2 Normalize nutrition-related labs through diet modification Additional Comments Monitor %PO intake, nutrition- related lab values, wt status, and integumentary system <RUSTY FIELDS - Last Filed: 05/05/22 07:16> Assessment and Plan Assessment and plan: I saw and evaluated the patient. I agree with the findings and the plan of care as documented in the Nurse Practitioner's~note, with the following corrections and additions. Hospitalist Physical - Constitutional Vitals: Temp Pulse Resp BP Pulse Ox 100.8 F H 106 H 21 100/49 97 05/05/22 04:30 05/05/22 06:09 05/05/22 06:09 05/05/22 05:46 05/05/22 06:09 Results - Labs CBC & Chem 7: 05/05/22 05:00 05/05/22 04:00 Labs: Laboratory Last Values WBC 20.1 K/mm3 (4.5-11.0) H 05/05/22 05:00 RBC 2.46 M/mm3 (3.65-5.03) L 05/05/22 05:00 Hgb 7.8 gm/dl (11.8-15.2) L 05/05/22 05:00 Hct 23.1 % (35.5-45.6) L 05/05/22 05:00 MCV 94 fl (84-94) 05/05/22 05:00 MCH 32 pg (28-32) 05/05/22 05:00 MCHC 34 % (32-34) 05/05/22 05:00 RDW 15.6 % (13.2-15.2) H 05/05/22 05:00 Plt Count 128 K/mm3 (140-440) L 05/05/22 05:00 Lymph % (Auto) 7.6 % (13.4-35.0) L 05/02/22 05:09 [place] % (Auto) 3.9 % (0.0-7.3) 05/02/22 05:09 Eos % (Auto) 0.0 % (0.0-4.3) 05/02/22 05:09 Baso % (Auto) 0.5 % (0.0-1.8) 05/02/22 05:09 Lymph # (Auto) 1.3 K/mm3 (1.2-5.4) 05/02/22 05:09 [place] # (Auto) 0.7 K/mm3 (0.0-0.8) 05/02/22 05:09 Eos # (Auto) 0.0 K/mm3 (0.0-0.4) 05/02/22 05:09 Baso # (Auto) 0.1 K/mm3 (0.0-0.1) 05/02/22 05:09 Add Manual Diff Complete 05/01/22 17:36 Total Counted 100 05/01/22 17:36 Seg Neutrophils % 88.0 % (40.0-70.0) H 05/02/22 05:09 Seg Neuts % (Manual) 86.0 % (40.0-70.0) H 05/01/22 17:36 Band Neutrophils % 12.0 % 05/01/22 17:36 Lymphocytes % (Manual) 1.0 % (13.4-35.0) L 05/01/22 17:36 Reactive Lymphs % (Man) 0 % 05/01/22 17:36 Monocytes % (Manual) 0 % (0.0-7.3) 05/01/22 17:36 Eosinophils % (Manual) 0 % (0.0-4.3) 05/01/22 17:36 Basophils % (Manual) 0 % (0.0-1.8) 05/01/22 17:36 Metamyelocytes % 1.0 % 05/01/22 17:36 Myelocytes % 0 % 05/01/22 17:36 Promyelocytes % 0 % 05/01/22 17:36 Blast Cells % 0 % 05/01/22 17:36 Nucleated RBC % Not Reportable 05/01/22 17:36 Seg Neutrophils # 15.2 K/mm3 (1.8-7.7) H 05/02/22 05:09 Seg Neutrophils # Man 7.7 K/mm3 (1.8-7.7) 05/01/22 17:36 Band Neutrophils # 1.1 K/mm3 05/01/22 17:36 Lymphocytes # (Manual) 0.1 K/mm3 (1.2-5.4) L 05/01/22 17:36 Abs React Lymphs (Man) 0.0 K/mm3 05/01/22 17:36 Monocytes # (Manual) 0.0 K/mm3 (0.0-0.8) 05/01/22 17:36 Eosinophils # (Manual) 0.0 K/mm3 (0.0-0.4) 05/01/22 17:36 Basophils # (Manual) 0.0 K/mm3 (0.0-0.1) 05/01/22 17:36 Metamyelocytes # 0.1 K/mm3 05/01/22 17:36 Myelocytes # 0.0 K/mm3 05/01/22 17:36 Promyelocytes # 0.0 K/mm3 05/01/22 17:36 Blast Cells # 0.0 K/mm3 05/01/22 17:36 WBC Morphology Not Reportable 05/01/22 17:36 Hypersegmented Neuts Not Reportable 05/01/22 17:36 Hyposegmented Neuts Not Reportable 05/01/22 17:36 Hypogranular Neuts Not Reportable 05/01/22 17:36 Smudge Cells Not Reportable 05/01/22 17:36 Toxic Granulation Not Reportable 05/01/22 17:36 Toxic Vacuolation Not Reportable 05/01/22 17:36 Dohle Bodies Not Reportable 05/01/22 17:36 Pelger-Huet Anomaly Not Reportable 05/01/22 17:36 Arnold Rods Not Reportable 05/01/22 17:36 Platelet Estimate Consistent w auto 05/01/22 17:36 Clumped Platelets Not Reportable 05/01/22 17:36 Plt Clumps, EDTA Not Reportable 05/01/22 17:36 Large Platelets Not Reportable 05/01/22 17:36 Giant Platelets Not Reportable 05/01/22 17:36 Platelet Satelliting Not Reportable 05/01/22 17:36 Plt Morphology Comment Not Reportable 05/01/22 17:36 RBC Morphology Not Reportable 05/01/22 17:36 Dimorphic RBCs Not Reportable 05/01/22 17:36 Polychromasia Not Reportable 05/01/22 17:36 Hypochromasia Few 05/01/22 17:36 Poikilocytosis Not Reportable 05/01/22 17:36 Anisocytosis Not Reportable 05/01/22 17:36 Microcytosis Not Reportable 05/01/22 17:36 Macrocytosis Not Reportable 05/01/22 17:36 Spherocytes Not Reportable 05/01/22 17:36 Pappenheimer Bodies Not Reportable 05/01/22 17:36 Sickle Cells Not Reportable 05/01/22 17:36 Target Cells Not Reportable 05/01/22 17:36 Tear Drop Cells Not Reportable 05/01/22 17:36 Ovalocytes Not Reportable 05/01/22 17:36 Helmet Cells Not Reportable 05/01/22 17:36 [place] Bodies Not Reportable 05/01/22 17:36 [place] Rings Not Reportable 05/01/22 17:36 [place] Cells Not Reportable 05/01/22 17:36 Bite Cells Not Reportable 05/01/22 17:36 Crenated Cell Not Reportable 05/01/22 17:36 Elliptocytes Not Reportable 05/01/22 17:36 Acanthocytes (Spur) Not Reportable 05/01/22 17:36 Rouleaux Not Reportable 05/01/22 17:36 Hemoglobin C Crystals Not Reportable 05/01/22 17:36 Schistocytes Not Reportable 05/01/22 17:36 Malaria parasites Not Reportable 05/01/22 17:36 ESR 43 mm/Hr (0-20) 05/02/22 05:09 Harpreet Bodies Not Reportable 05/01/22 17:36 Hem Pathologist Commnt No 05/01/22 17:36 Sodium 134 mmol/L (137-145) L 05/05/22 04:00 Potassium 3.5 mmol/L (3.6-5.0) L 05/05/22 04:00 Chloride 96.4 mmol/L (98-107) L 05/05/22 04:00 Carbon Dioxide 28 mmol/L (22-30) 05/05/22 04:00 Anion Gap 13 mmol/L 05/05/22 04:00 BUN 32 mg/dL (9-20) H 05/05/22 04:00 Creatinine 2.8 mg/dL (0.8-1.3) H 05/05/22 04:00 Estimated GFR 28 ml/min 05/05/22 04:00 BUN/Creatinine Ratio 11 % 05/05/22 04:00 Glucose 85 mg/dL (75-100) 05/05/22 04:00 POC Glucose 100 mg/dL (70-105) 05/04/22 21:20 Lactic Acid 5.80 mmol/L (0.7-2.0) H* 05/04/22 09:09 Calcium 6.8 mg/dL (8.4-10.2) L 05/05/22 04:00 Phosphorus 2.80 mg/dL (2.5-4.5) 05/05/22 04:00 Magnesium 1.90 mg/dL (1.7-2.3) 05/05/22 04:00 Total Bilirubin 0.30 mg/dL (0.1-1.2) 05/02/22 05:09 AST 18 units/L (5-40) 05/02/22 05:09 ALT 7 units/L (7-56) 05/02/22 05:09 Alkaline Phosphatase 113 units/L (35-129) 05/02/22 05:09 C-Reactive Protein 16.10 mg/dL (0.00-1.30) H 05/01/22 22:57 NT-Pro-B Natriuret Pep 00189 pg/mL (0-900) H 05/01/22 22:57 Total Protein 6.0 g/dL (6.3-8.2) L D 05/02/22 05:09 Albumin 1.6 g/dL (3.9-5) L 05/02/22 05:09 Albumin/Globulin Ratio 0.4 % 05/02/22 05:09 TSH 0.918 mlU/mL (0.270-4.200) 05/01/22 22:57 Free T4 0.96 ng/dL (0.76-1.46) 05/01/22 22:57 Urine Color Yellow (Yellow) 05/02/22 01:24 Urine Turbidity Clear (Clear) 05/02/22 01:24 Specific [place] (Man) 1.015 (1.003-1.030) 05/02/22 01:24 Ur Protein (Man) <30 mg dl mg/dL (Negative) 05/02/22 01:24 Ur Ketones (Man) Negative (Negative) 05/02/22 01:24 Ur Nitrite (Man) Negative (Negative) 05/02/22 01:24 Ur Reducing Substances Not Reportable 05/02/22 01:24 Urine Bilirubin (Man) Negative (Negative) 05/02/22 01:24 Leukocyte Esterase (Man) Negative (Negative) 05/02/22 01:24 Urine WBC (Auto) < 1.0 /HPF (0.0-6.0) 05/02/22 01:24 Urine RBC (Auto) 1.0 /HPF (0.0-6.0) 05/02/22 01:24 U Epithel Cells (Auto) 1.0 /HPF (0-13.0) 05/02/22 01:24 Urine RBC (Manual) Negative (Negative) 05/02/22 01:24 Blood Type O POSITIVE 05/01/22 22:57 Antibody Screen Negative 05/01/22 22:57 Microbiology: Microbiology 05/01/22 17:36 Peripheral/Venous Blood Culture - Preliminary NO GROWTH AFTER 72 HOURS 05/01/22 17:36 Peripheral/Venous Blood Culture - Preliminary NO GROWTH AFTER 72 HOURS Venegas/IV: Voiding Method Condom Catheter Active Medications - Current Medications Current Medications: Generic Name Dose Route Start Last Admin Trade Name Freq PRN Reason Stop Dose Admin Acetaminophen 650 mg 05/01/22 20:29 Acetaminophen 325 Mg Tab PO Q6H PRN Pain MILD(1-3)/Fever >100.5/BROWN Ascorbic Acid 500 mg 05/03/22 12:00 05/04/22 21:34 Ascorbic Acid 500 Mg Tab PO 500 mg BID ALEX Administration Benzocaine/Menthol 1 each 05/02/22 11:00 05/03/22 22:08 Benzocaine/Menthol Lozenge MM 1 each Q2H PRN Administration Sore Throat Carvedilol 6.25 mg 05/04/22 11:00 05/04/22 21:36 Carvedilol 6.25 Mg Tab PO Not Given BID ALEX Midodrine 10 mg 05/03/22 12:00 05/04/22 16:35 Midodrine 10 Mg Tab PO 10 mg TID@0800,1200,1600 ALEX Administration Ondansetron HCl 4 mg 05/04/22 09:29 05/04/22 09:35 Ondansetron 4 Mg/2 Ml Inj IV 4 mg Q4H PRN Administration Nausea And Vomiting Oxycodone/Acetaminophen 1 tab 05/01/22 20:29 Oxycodone /Acetaminophen 5-325mg Tab PO Q6H PRN Pain, Moderate (4-6) Simethicone 80 mg 05/03/22 20:00 05/03/22 20:40 Simethicone 80 Mg Chew Tab PO 80 mg Q6H PRN Administration Gas pain Sodium Chloride 10 ml 05/01/22 22:00 05/04/22 21:37 Sodium Chloride 0.9% 10 Ml Flush Syringe IV 10 ml BID ALEX Administration Sodium Chloride 10 ml 05/01/22 20:29 05/04/22 09:35 Sodium Chloride 0.9% 10 Ml Flush Syringe IV 10 ml PRN PRN Administration LINE FLUSH Zinc Sulfate 220 mg 05/03/22 22:00 05/04/22 21:37 Zinc Sulfate 220 Mg Cap PO 220 mg BID ALEX Administration Nutrition/Malnutrition Assess - Dietary Evaluation Nutrition/Malnutrition Findings: Nutrition Notes Start: 05/03/22 13:40 Freq: Status: Active Protocol: Document 05/03/22 13:40 CM (Rec: 05/03/22 14:02 CM [id number]) Co-Sign 05/03/22 13:40 WW Nutrition Notes 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 Pt reported UBW of 249lb and wt loss of ~90lb beginning in June 2021 d/t unspecified illness. Pt currently ~9lb greater than UBW at this time - BLE edema noted at time of visit (May be masking weight loss). Weight Status Obese Subjective/Other Information RD consult for malnutrition screening score 2 and skin risk assessment. Nutrition focused physical assessment performed indicating moderate muscle wasting and subcutaneous fat loss - indicative of moderate malnutrition in setting of chronic disease. Pt reported decreased appetite since June 2021, but denied N/V, abdominal pain, or difficulty chewing/swallowing . No %PO intake at this time. Stage III (R Heel) / Stage II (Sacrum) Pressure ulcers and dry/flaky skin breakdown of LE . Recommended Zinc Sulfate, Vitamin C, and Micah BID administration. Burn Absent Trauma Absent GI Symptoms None Food Allergy No Skin Integrity/Comment Dry, flaking, breakdown, III Ulcer Minimum of two criteria Yes Body Fat Depletion Moderate depletion (severe) Muscle Mass Moderate Depletion (severe) #2 Nutrition Diagnosis Altered nutrition-related laboratory values Etiology GERALDINE on CKD As Evidenced by Signs and Symptoms BUN 33 / Cr 3.1 / Na 136 #1 Nutrition Diagnosis Malnutrition Comments: Moderate in setting of chronic disease. Etiology Decreased appetite ~10mo As Evidenced by Signs and Symptoms Pt report of decreased appetite over ~10mo, moderate muscle wasting (temples, acromion) / subcutaneous fat loss (triceps). Is patient on ventilator? No Is Patient Ambulatory and/or Out of Bed No REE-([facility]-confined to bed) [phone] Calculation Used for Recommendations [facility] Additional Notes Protein: 0.9-1.2g/kg AdjBW; 83 -111g PRO q day Fluid: 500mL + total output or per team Nutrition Intervention Change Diet Order: Recommend changing diet to renal diet if blood glucose is WNL. Add Supplement/Snack (indicate name/kcal Micah BID /protein ) Provides kCal: 180 Goal #1 Pt to consume >75% of estimated energy/protein needs through current diet order Goal #2 Normalize nutrition-related labs through diet modification Additional Comments Monitor %PO intake, nutrition- related lab values, wt status, and integumentary system
[2022-05-05 05:42] LABS: Calcium 6.8 mg/dL (8.4-10.2)
[2022-05-05 05:53] LABS: Hematocrit 23.1 % (35.5-45.6); Hemoglobin 7.8 gm/dl (11.8-15.2); Mean Corpuscular HGB Conc 34 % (32-34); Mean Corpuscular Volume 94 fl (84-94); Platelet Count 128 K/mm3 (140-440); Red Blood Count 2.46 M/mm3 (3.65-5.03); Red Cell Distribution Width 15.6 % (13.2-15.2)
--- NOTE | 2022-05-05 08:13 | Progress Note ---
Assessment and Plan 66 y/o male with hypotension of unknown etiology 05/05/22: EF is now 20%, per patient it was 30-35% about 2 years ago. Consider cards consult to help optimize heart failure regimen. Checked repeat CXR and ordered UA given fever. IF spikes again will need blood cultures. Will transfer to step down. 05/04/22: Will try low dose Coreg today now that BP is better. Continue to monitor in ICU. Echo still not read. 05/03/22: Hold further fluids and stop continuous fluids. Will attempt inotropes. Follow up echo results. If inotropes done work, will consider stress dose steroids. 1. Most likely dry given BUN/CR. Will give more fluids 2. wean pressors to off for maps >65 CCT 31 minutes. Subjective Date of service: 05/05/22 Interval history: Low grade temp last night to 100.8. Asleep this am. Did not get BB last night. MAP is 60 this am. Still making urine and Cr is improving. Remainder is negative. Objective - Constitutional Vitals: Vital Signs - 12hr 05/04/22 05/04/22 05/04/22 20:15 20:30 20:45 Temperature 100.5 F H Pulse Rate 102 H 99 H 96 H Pulse Rate [ From Monitor] Respiratory 22 21 21 Rate Blood Pressure 99/53 96/52 94/50 O2 Sat by Pulse 96 96 96 Oximetry 05/04/22 05/04/22 05/04/22 21:00 21:15 21:30 Temperature Pulse Rate 96 H 101 H 98 H Pulse Rate [ 101 H From Monitor] Respiratory 14 20 20 Rate Blood Pressure 94/50 105/56 100/54 O2 Sat by Pulse 98 96 96 Oximetry 05/04/22 05/04/22 05/04/22 21:36 21:40 21:45 Temperature Pulse Rate 98 H 99 H 98 H Pulse Rate [ From Monitor] Respiratory 19 18 Rate Blood Pressure 100/54 100/54 97/54 O2 Sat by Pulse 96 96 Oximetry 05/04/22 05/04/22 05/04/22 22:00 22:15 22:30 Temperature Pulse Rate 101 H 105 H 103 H Pulse Rate [ From Monitor] Respiratory 11 L 15 19 Rate Blood Pressure 110/54 103/58 100/57 O2 Sat by Pulse 98 95 97 Oximetry 05/04/22 05/04/2205/04/22 22:45 23:00 23:15 Temperature Pulse Rate 102 H 101 H 100 H Pulse Rate [ From Monitor] Respiratory 18 19 17 Rate Blood Pressure 95/52 104/52 100/51 O2 Sat by Pulse 98 97 96 Oximetry 05/04/22 05/04/22 05/05/22 23:30 23:45 00:00 Temperature Pulse Rate 100 H 99 H 106 H Pulse Rate [ From Monitor] Respiratory 17 15 22 Rate Blood Pressure 101/51 105/53 102/57 O2 Sat by Pulse 97 97 94 Oximetry 05/05/22 05/05/22 05/05/22 00:15 00:30 00:33 Temperature 100 F H Pulse Rate 104 H 104 H Pulse Rate [ From Monitor] Respiratory 19 22 Rate Blood Pressure 115/61 115/61 O2 Sat by Pulse 96 96 Oximetry 05/05/22 05/05/22 05/05/22 00:46 01:00 01:16 Temperature Pulse Rate 101 H 101 H 102 H Pulse Rate [ 103 H From Monitor] Respiratory 18 19 19 Rate Blood Pressure 115/61 104/57 104/57 O2 Sat by Pulse 95 96 96 Oximetry 05/05/22 05/05/22 05/05/22 01:30 01:46 02:00 Temperature Pulse Rate 128 H 111 H 108 H Pulse Rate [ From Monitor] Respiratory 20 20 20 Rate Blood Pressure 104/57 104/57 108/65 O2 Sat by Pulse 97 98 98 Oximetry 05/05/22 05/05/22 05/05/22 02:16 02:30 02:46 Temperature Pulse Rate 111 H 108 H 106 H Pulse Rate [ From Monitor] Respiratory 18 22 17 Rate Blood Pressure 108/65 108/65 108/65 O2 Sat by Pulse 95 97 94 Oximetry 05/05/22 05/05/22 05/05/22 03:00 03:16 03:30 Temperature Pulse Rate 130 H 117 H 111 H Pulse Rate [ From Monitor] Respiratory 21 17 17 Rate Blood Pressure 108/65 108/65 103/61 O2 Sat by Pulse 95 96 95 Oximetry 05/05/22 05/05/22 05/05/22 03:46 04:00 04:16 Temperature Pulse Rate 116 H 108 H 110 H Pulse Rate [ From Monitor] Respiratory 18 19 22 Rate Blood Pressure 103/61 100/50 100/50 O2 Sat by Pulse 94 96 96 Oximetry 05/05/22 05/05/22 05/05/22 04:30 04:46 05:00 Temperature 100.8 F H Pulse Rate 107 H 112 H 109 H Pulse Rate [ 108 H From Monitor] Respiratory 16 17 18 Rate Blood Pressure 100/50 100/50 100/49 O2 Sat by Pulse 98 98 98 Oximetry 05/05/22 05/05/22 05/05/22 05:16 05:30 05:46 Temperature Pulse Rate 110 H 108 H 117 H Pulse Rate [ From Monitor] Respiratory 14 17 16 Rate Blood Pressure 100/49 100/49 100/49 O2 Sat by Pulse 98 97 97 Oximetry 05/05/22 05/05/22 06:09 07:30 Temperature 100.0 F H Pulse Rate 106 H Pulse Rate [ From Monitor] Respiratory 21 Rate Blood Pressure O2 Sat by Pulse 97 Oximetry General appearance: Present: no acute distress, other (asleep) - Neck Neck: supple - Respiratory Respiratory effort: normal Respiratory: negative: CTA - Labs CBC & Chem 7: 05/05/22 05:00 05/05/22 04:00 Labs: Abnormal lab results 05/04/22 05/04/22 05/04/22 Range/Units 09:09 12:10 17:58 WBC (4.5-11.0) K/mm3 RBC (3.65-5.03) M/mm3 Hgb (11.8-15.2) gm/dl Hct (35.5-45.6) % RDW (13.2-15.2) % Plt Count (140-440) K/mm3 Sodium (137-145) mmol/L Potassium (3.6-5.0) mmol/L Chloride (98-107) mmol/L BUN (9-20) mg/dL Creatinine (0.8-1.3) mg/dL POC Glucose 108 H 108 H (70-105) mg/dL Lactic Acid 5.80 H* (0.7-2.0) mmol/L Calcium (8.4-10.2) mg/dL 05/05/22 05/05/22 Range/Units 04:00 05:00 WBC 20.1 H (4.5-11.0) K/mm3 RBC 2.46 L (3.65-5.03) M/mm3 Hgb 7.8 L (11.8-15.2) gm/dl Hct 23.1 L (35.5-45.6) % RDW 15.6 H (13.2-15.2) % Plt Count 128 L (140-440) K/mm3 Sodium 134 L (137-145) mmol/L Potassium 3.5 L (3.6-5.0) mmol/L Chloride 96.4 L (98-107) mmol/L BUN 32 H (9-20) mg/dL Creatinine 2.8 H (0.8-1.3) mg/dL POC Glucose (70-105) mg/dL Lactic Acid (0.7-2.0) mmol/L Calcium 6.8 L (8.4-10.2) mg/dL Medications & Allergies - Medications Allergies/Adverse Reactions: Allergies No Known Allergies Allergy (Verified 05/01/22 12:55) Home Medications: Home Medications Medication Instructions Recorded Confirmed Last Taken Type No Known Home Medications [No 05/02/22 05/02/22 Unknown History Reported Home Medications] Active Medications: Generic Name Dose Route Start Last Admin Trade Name Freq PRN Reason Stop Dose Admin Acetaminophen 650 mg 05/01/22 20:29 Acetaminophen 325 Mg Tab PO Q6H PRN Pain MILD(1-3)/Fever >100.5/BROWN Ascorbic Acid 500 mg 05/03/22 12:00 05/04/22 21:34 Ascorbic Acid 500 Mg Tab PO 500 mg BID ALEX Administration Benzocaine/Menthol 1 each 05/02/22 11:00 05/03/22 22:08 Benzocaine/Menthol Lozenge MM 1 each Q2H PRN Administration Sore Throat Carvedilol 6.25 mg 05/04/22 11:00 05/04/22 21:36 Carvedilol 6.25 Mg Tab PO Not Given BID ALEX Midodrine 10 mg 05/03/22 12:00 05/04/22 16:35 Midodrine 10 Mg Tab PO 10 mg TID@0800,1200,1600 ALEX Administration Ondansetron HCl 4 mg 05/04/22 09:29 05/04/22 09:35 Ondansetron 4 Mg/2 Ml Inj IV 4 mg Q4H PRN Administration Nausea And Vomiting Oxycodone/Acetaminophen 1 tab 05/01/22 20:29 Oxycodone /Acetaminophen 5-325mg Tab PO Q6H PRN Pain, Moderate (4-6) Simethicone 80 mg 05/03/22 20:00 05/03/22 20:40 Simethicone 80 Mg Chew Tab PO 80 mg Q6H PRN Administration Gas pain Sodium Chloride 10 ml 05/01/22 22:00 05/04/22 21:37 Sodium Chloride 0.9% 10 Ml Flush Syringe IV 10 ml BID ALEX Administration Sodium Chloride 10 ml 05/01/22 20:29 05/04/22 09:35 Sodium Chloride 0.9% 10 Ml Flush Syringe IV 10 ml PRN PRN Administration LINE FLUSH Zinc Sulfate 220 mg 05/03/22 22:00 05/04/22 21:37 Zinc Sulfate 220 Mg Cap PO 220 mg BID ALEX Administration
--- NOTE | 2022-05-05 08:27 | XRay Report ---
CHEST - 1 VIEW INDICATION: Low Grade Temp, emesis yesterday COMPARISON: 05/01/2022 FINDINGS: SUPPORT DEVICES: Stable support device positioning. HEART: Stable cardiomediastinal silhouette. LUNGS/PLEURA: Mild interstitial prominence and patchy airspace disease with some symmetry which may at least in part reflect changes of interstitial edema. Probable small layering effusion on the left. ADDITIONAL FINDINGS: None. IMPRESSION: Lung findings as above. Signer Name: David Pickens MD Signed: 05/05/2022 8:23 AM Workstation Name: [id number]
[2022-05-05] MEDS: MIDODRINE 10 MG TAB PO SCH ×3 (08:47→16:21)
[2022-05-05] MEDS ORDERED: ALUM-MAG HYDROXIDE-SIMETHICONE 200-200-20MG/5ML ORAL LIQD 30 ML PO PRN (09:49)
[2022-05-05] MEDS: carvediloL 6.25 MG TAB PO SCH ×2 (10:10→22:50)
[2022-05-05] MEDS: ASCORBIC ACID 500 MG TAB PO SCH ×2 (10:10→22:56)
[2022-05-05] MEDS: ZINC SULFATE 220 MG CAP PO SCH ×2 (10:10→22:56)
[2022-05-05 11:23] LABS: Amorphous Crystals,Urine Few; Bacteria,Urine 1+ /HPF (Negative); Hyaline Casts,Urine 1 /LPF
--- NOTE | 2022-05-05 11:34 | Progress Note ---
<ADRIAN MART - Last Filed: 05/05/22 12:59> Assessment and Plan Assessment and plan: This is a 76-year-old male with OHS, CVA x2, CHF and AICD in situ, CKD admitted with GERALDINE, metabolic acidosis, toxic metabolic encephalopathy, fluid overload Neuro: Acute metabolic encephalopathy (resolved), h/o CVA x2, legally blind -Reorientation as needed -Maintain sleep-wake cycle -As needed analgesia Cardiac: Hypotension, lactic acidosis, h/o CHF with AICD in situ -Blood pressure monitoring per protocol -Vasopressor support with vasopressin -MAP goal greater than 65 -Midodrine p.o. -Echocardiogram showed shows severe global hypokinesis of left ventricle, LVEF 20%, trace pericardial effusion, moderate left pleural effusion -s/p Dobutamine gtt -Coreg -proBNP 26833 -S/p 3500 mL normal saline in the ED -S/p 4 L LR in the ICU Respiratory: NAD -CCM consulted, appreciate recommendations -Pulmonary hygiene -SPO2 monitoring -Supplemental oxygen as needed GI: Severe protein calorie malnutrition -Cardiac cc diet -PPI -CT abdomen/pelvis without contrast shows no abnormality noted within the abdomen or pelvis, moderate amount of calcified plaque seen throughout the abdominal aorta and common iliac arteries with out associated aneurysm, no GI abnormality other than simple sigmoid diverticulosis : Acute on chronic kidney disease -Monitor intake and output -Renally dose medications -Avoid nephrotoxic medications -Will not replete hypokalemia in setting of BUN/creatinine of 3.4/36 -Trend BMP ID: SIRS, Chronic lymphedema -Presented with tachycardia, hypotension, acute kidney injury, leukocytosis with no definite source of infection noted -f/u blood culture -WOCN consulted -Monitor WBC and temperature curve Endo: h/o DM -Avoid hypoglycemia -SSI -Accu-Cheks q. ACH S Heme: Leukocytosis, thrombocytopenia -Trend CBC -Transfuse hemoglobin less than 7 -SCDs to BLE while in bed The high probability of a clinically significant, sudden or life threatening deterioration of the [multi] system(s) required my full and direct attention, intervention and personal management. The aggregate critical care time was [60] minutes. This time is in addition to time spent performing reported procedures but includes the following: [x] Data Review and interpretation [x] Patient assessment and monitoring of vital signs [x] Documentation [x] Medication orders and management Disposition Plan: transfer to floor Total Time Spent with Patient (Minutes): 60 History Interval history: This is a 76-year-old male with OHS, CVA x2, legally blind, CHF with AICD in situ, CKD (? Stage IV) not on hemodialysis and DM who presented to the emergency department on 05/01 via EMS with complaints of feeling weak over the past couple days. Upon EMS arrival patient was found to be hypotensive SBP in the 50s and was subsequently placed on IV fluid and transported to [facility]. In the emergency department patient was found to have a systolic blood pressure in the 80s, GERALDINE with ATN, metabolic acidosis as well as fluid overload. Patient was admitted to IMCU initially but later required the use of vasopressors and was upgraded to ICU. Patient was admitted to the hospitalist service with r/o sepsis, GERALDINE with ATN, metabolic acidosis,, toxic metabolic encephalopathy, fluid overload with consults to [facility]. Hospital course to date: 05/02: Patient Levophed weaned, added midodrine. Per CCM he received additional 4 L LR bolus. 05/03: Started on zinc, Micah and vitamin C per nutrition, started on dobutamine. Wean Levophed as tolerated. Echocardiogram pending. 05/04: Remains on dobutamine drip in the morning but was discontinued later. Now started on Coreg twice daily. We will continue to monitor in the ICU and possible transfer to floor tomorrow. 05/05: We will consult cardiology given reduction in EF. Patient will be transferred to IM. We will continue Coreg. No acute events reported overnigh t. CXR and UA obtained due to low-grade fever. CXR unremarkable. Hospitalist Physical - Constitutional Vitals: Temp Pulse Resp BP Pulse Ox 100.0 F H 115 H 17 100/56 97 05/05/22 07:30 05/05/22 10:46 05/05/22 10:46 05/05/22 10:46 05/05/22 10:46 General appearance: Present: no acute distress, other (asleep) - EENT Eyes: Present: PERRL, EOM intact ENT: hearing intact, clear oral mucosa, dentition normal - Neck Neck: Present: normal ROM - Respiratory Respiratory effort: normal Respiratory: bilateral: CTA - Cardiovascular Rhythm: regular Heart Sounds: Present: S1 & S2. Absent: systolic murmur, diastolic murmur - Extremities Extremities: no ischemia, pulses intact, pulses symmetrical, normal temperature, normal color Extremity abnormal: edema Peripheral Pulses: within normal limits - Abdominal General gastrointestinal: soft, non-tender, non-distended, normal bowel sounds - Integumentary Integumentary: Present: warm, dry - Psychiatric Psychiatric: cooperative - Neurologic Neurologic: CNII-XII intact, no focal deficits - Allied Health Allied health notes reviewed: nursing Results - Labs CBC & Chem 7: 05/05/22 05:00 05/05/22 04:00 Labs: Laboratory Last Values WBC 20.1 K/mm3 (4.5-11.0) H 05/05/22 05:00 RBC 2.46 M/mm3 (3.65-5.03) L 05/05/22 05:00 Hgb 7.8 gm/dl (11.8-15.2) L 05/05/22 05:00 Hct 23.1 % (35.5-45.6) L 05/05/22 05:00 MCV 94 fl (84-94) 05/05/22 05:00 MCH 32 pg (28-32) 05/05/22 05:00 MCHC 34 % (32-34) 05/05/22 05:00 RDW 15.6 % (13.2-15.2) H 05/05/22 05:00 Plt Count 128 K/mm3 (140-440) L 05/05/22 05:00 Lymph % (Auto) 7.6 % (13.4-35.0) L 05/02/22 05:09 [place] % (Auto) 3.9 % (0.0-7.3) 05/02/22 05:09 Eos % (Auto) 0.0 % (0.0-4.3) 05/02/22 05:09 Baso % (Auto) 0.5 % (0.0-1.8) 05/02/22 05:09 Lymph # (Auto) 1.3 K/mm3 (1.2-5.4) 05/02/22 05:09 [place] # (Auto) 0.7 K/mm3 (0.0-0.8) 05/02/22 05:09 Eos # (Auto) 0.0 K/mm3 (0.0-0.4) 05/02/22 05:09 Baso # (Auto) 0.1 K/mm3 (0.0-0.1) 05/02/22 05:09 Add Manual Diff Complete 05/01/22 17:36 Total Counted 100 05/01/22 17:36 Seg Neutrophils % 88.0 % (40.0-70.0) H 05/02/22 05:09 Seg Neuts % (Manual) 86.0 % (40.0-70.0) H 05/01/22 17:36 Band Neutrophils % 12.0 % 05/01/22 17:36 Lymphocytes % (Manual) 1.0 % (13.4-35.0) L 05/01/22 17:36 Reactive Lymphs % (Man) 0 % 05/01/22 17:36 Monocytes % (Manual) 0 % (0.0-7.3) 05/01/22 17:36 Eosinophils % (Manual) 0 % (0.0-4.3) 05/01/22 17:36 Basophils % (Manual) 0 % (0.0-1.8) 05/01/22 17:36 Metamyelocytes % 1.0 % 05/01/22 17:36 Myelocytes % 0 % 05/01/22 17:36 Promyelocytes % 0 % 05/01/22 17:36 Blast Cells % 0 % 05/01/22 17:36 Nucleated RBC % Not Reportable 05/01/22 17:36 Seg Neutrophils # 15.2 K/mm3 (1.8-7.7) H 05/02/22 05:09 Seg Neutrophils # Man 7.7 K/mm3 (1.8-7.7) 05/01/22 17:36 Band Neutrophils # 1.1 K/mm3 05/01/22 17:36 Lymphocytes # (Manual) 0.1 K/mm3 (1.2-5.4) L 05/01/22 17:36 Abs React Lymphs (Man) 0.0 K/mm3 05/01/22 17:36 Monocytes # (Manual) 0.0 K/mm3 (0.0-0.8) 05/01/22 17:36 Eosinophils # (Manual) 0.0 K/mm3 (0.0-0.4) 05/01/22 17:36 Basophils # (Manual) 0.0 K/mm3 (0.0-0.1) 05/01/22 17:36 Metamyelocytes # 0.1 K/mm3 05/01/22 17:36 Myelocytes # 0.0 K/mm3 05/01/22 17:36 Promyelocytes # 0.0 K/mm3 05/01/22 17:36 Blast Cells # 0.0 K/mm3 05/01/22 17:36 WBC Morphology Not Reportable 05/01/22 17:36 Hypersegmented Neuts Not Reportable 05/01/22 17:36 Hyposegmented Neuts Not Reportable 05/01/22 17:36 Hypogranular Neuts Not Reportable 05/01/22 17:36 Smudge Cells Not Reportable 05/01/22 17:36 Toxic Granulation Not Reportable 05/01/22 17:36 Toxic Vacuolation Not Reportable 05/01/22 17:36 Dohle Bodies Not Reportable 05/01/22 17:36 Pelger-Huet Anomaly Not Reportable 05/01/22 17:36 Arnold Rods Not Reportable 05/01/22 17:36 Platelet Estimate Consistent w auto 05/01/22 17:36 Clumped Platelets Not Reportable 05/01/22 17:36 Plt Clumps, EDTA Not Reportable 05/01/22 17:36 Large Platelets Not Reportable 05/01/22 17:36 Giant Platelets Not Reportable 05/01/22 17:36 Platelet Satelliting Not Reportable 05/01/22 17:36 Plt Morphology Comment Not Reportable 05/01/22 17:36 RBC Morphology Not Reportable 05/01/22 17:36 Dimorphic RBCs Not Reportable 05/01/22 17:36 Polychromasia Not Reportable 05/01/22 17:36 Hypochromasia Few 05/01/22 17:36 Poikilocytosis Not Reportable 05/01/22 17:36 Anisocytosis Not Reportable 05/01/22 17:36 Microcytosis Not Reportable 05/01/22 17:36 Macrocytosis Not Reportable 05/01/22 17:36 Spherocytes Not Reportable 05/01/22 17:36 Pappenheimer Bodies Not Reportable 05/01/22 17:36 Sickle Cells Not Reportable 05/01/22 17:36 Target Cells Not Reportable 05/01/22 17:36 Tear Drop Cells Not Reportable 05/01/22 17:36 Ovalocytes Not Reportable 05/01/22 17:36 Helmet Cells Not Reportable 05/01/22 17:36 Vizcarra-Tobin Bodies Not Reportable 05/01/22 17:36 [place] Rings Not Reportable 05/01/22 17:36 Goyo Cells Not Reportable 05/01/22 17:36 Bite Cells Not Reportable 05/01/22 17:36 Crenated Cell Not Reportable 05/01/22 17:36 Elliptocytes Not Reportable 05/01/22 17:36 Acanthocytes (Spur) Not Reportable 05/01/22 17:36 Rouleaux Not Reportable 05/01/22 17:36 Hemoglobin C Crystals Not Reportable 05/01/22 17:36 Schistocytes Not Reportable 05/01/22 17:36 Malaria parasites Not Reportable 05/01/22 17:36 ESR 43 mm/Hr (0-20) 05/02/22 05:09 Harpreet Bodies Not Reportable 05/01/22 17:36 Hem Pathologist Commnt No 05/01/22 17:36 Sodium 134 mmol/L (137-145) L 05/05/22 04:00 Potassium 3.5 mmol/L (3.6-5.0) L 05/05/22 04:00 Chloride 96.4 mmol/L (98-107) L 05/05/22 04:00 Carbon Dioxide 28 mmol/L (22-30) 05/05/22 04:00 Anion Gap 13 mmol/L 05/05/22 04:00 BUN 32 mg/dL (9-20) H 05/05/22 04:00 Creatinine 2.8 mg/dL (0.8-1.3) H 05/05/22 04:00 Estimated GFR 28 ml/min 05/05/22 04:00 BUN/Creatinine Ratio 11 % 05/05/22 04:00 Glucose 85 mg/dL (75-100) 05/05/22 04:00 POC Glucose 100 mg/dL (70-105) 05/04/22 21:20 Lactic Acid 5.80 mmol/L (0.7-2.0) H* 05/04/22 09:09 Calcium 6.8 mg/dL (8.4-10.2) L 05/05/22 04:00 Phosphorus 2.80 mg/dL (2.5-4.5) 05/05/22 04:00 Magnesium 1.90 mg/dL (1.7-2.3) 05/05/22 04:00 Total Bilirubin 0.30 mg/dL (0.1-1.2) 05/02/22 05:09 AST 18 units/L (5-40) 05/02/22 05:09 ALT 7 units/L (7-56) 05/02/22 05:09 Alkaline Phosphatase 113 units/L (35-129) 05/02/22 05:09 C-Reactive Protein 16.10 mg/dL (0.00-1.30) H 05/01/22 22:57 NT-Pro-B Natriuret Pep 40711 pg/mL (0-900) H 05/01/22 22:57 Total Protein 6.0 g/dL (6.3-8.2) L D 05/02/22 05:09 Albumin 1.6 g/dL (3.9-5) L 05/02/22 05:09 Albumin/Globulin Ratio 0.4 % 05/02/22 05:09 TSH 0.918 mlU/mL (0.270-4.200) 05/01/22 22:57 Free T4 0.96 ng/dL (0.76-1.46) 05/01/22 22:57 Urine Color Yellow (Yellow) 05/02/22 01:24 Urine Turbidity Clear (Clear) 05/02/22 01:24 Specific [place] (Man) 1.015 (1.003-1.030) 05/02/22 01:24 Ur Protein (Man) <30 mg dl mg/dL (Negative) 05/02/22 01:24 Ur Ketones (Man) Negative (Negative) 05/02/22 01:24 Ur Nitrite (Man) Negative (Negative) 05/02/22 01:24 Ur Reducing Substances Not Reportable 05/02/22 01:24 Urine Bilirubin (Man) Negative (Negative) 05/02/22 01:24 Leukocyte Esterase (Man) Negative (Negative) 05/02/22 01:24 Urine WBC (Auto) < 1.0 /HPF (0.0-6.0) 05/02/22 01:24 Urine RBC (Auto) 1.0 /HPF (0.0-6.0) 05/02/22 01:24 U Epithel Cells (Auto) 2.0 /HPF (0-13.0) 05/05/22 09:45 Urine RBC (Manual) Negative (Negative) 05/02/22 01:24 Blood Type O POSITIVE 05/01/22 22:57 Antibody Screen Negative 05/01/22 22:57 Microbiology: Microbiology 05/01/22 17:36 Peripheral/Venous Blood Culture - Preliminary NO GROWTH AFTER 72 HOURS 05/01/22 17:36 Peripheral/Venous Blood Culture - Preliminary NO GROWTH AFTER 72 HOURS Venegas/IV: Voiding Method Condom Catheter Active Medications - Current Medications Current Medications: Generic Name Dose Route Start Last Admin Trade Name Freq PRN Reason Stop Dose Admin Acetaminophen 650 mg 05/01/22 20:29 Acetaminophen 325 Mg Tab PO Q6H PRN Pain MILD(1-3)/Fever >100.5/BROWN Al Hydrox/Mg Hydrox/Simethicone 15 ml 05/05/22 09:49 Alum-Mag Hydroxide-Simethicone [id number]/5ml Oral Liqd 30 Ml PO Q4H PRN Indigestion Ascorbic Acid 500 mg 05/03/22 12:00 05/05/22 10:10 Ascorbic Acid 500 Mg Tab PO 500 mg BID ALEX Administration Benzocaine/Menthol 1 each 05/02/22 11:00 05/03/22 22:08 Benzocaine/Menthol Lozenge MM 1 each Q2H PRN Administration Sore Throat Carvedilol 6.25 mg 05/04/22 11:00 05/05/22 10:10 Carvedilol 6.25 Mg Tab PO 6.25 mg BID ALEX Administration Midodrine 10 mg 05/03/22 12:00 05/05/22 08:47 Midodrine 10 Mg Tab PO 10 mg TID@0800,1200,1600 ALEX Administration Ondansetron HCl 4 mg 05/04/22 09:29 05/04/22 09:35 Ondansetron 4 Mg/2 Ml Inj IV 4 mg Q4H PRN Administration Nausea And Vomiting Oxycodone/Acetaminophen 1 tab 05/01/22 20:29 Oxycodone /Acetaminophen 5-325mg Tab PO Q6H PRN Pain, Moderate (4-6) Simethicone 80 mg 05/03/22 20:00 05/03/22 20:40 Simethicone 80 Mg Chew Tab PO 80 mg Q6H PRN Administration Gas pain Sodium Chloride 10 ml 05/01/22 22:00 05/05/22 10:11 Sodium Chloride 0.9% 10 Ml Flush Syringe IV 10 ml BID ALEX Administration Sodium Chloride 10 ml 05/01/22 20:29 05/04/22 09:35 Sodium Chloride 0.9% 10 Ml Flush Syringe IV 10 ml PRN PRN Administration LINE FLUSH Zinc Sulfate 220 mg 05/03/22 22:00 05/05/22 10:10 Zinc Sulfate 220 Mg Cap PO 220 mg BID ALEX Administration Nutrition/Malnutrition Assess - Dietary Evaluation Nutrition/Malnutrition Findings: Nutrition Notes Start: 05/03/22 13:40 Freq: Status: Active Protocol: Document 05/03/22 13:40 CM (Rec: 05/03/22 14:02 CM [email or web address]) Co-Sign 05/03/22 13:40 WW Nutrition Notes 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 Pt reported UBW of 249lb and wt loss of ~90lb beginning in June 2021 d/t unspecified illness. Pt currently ~9lb greater than UBW at this time - BLE edema noted at time of visit (May be masking weight loss). Weight Status Obese Subjective/Other Information RD consult for malnutrition screening score 2 and skin risk assessment. Nutrition focused physical assessment performed indicating moderate muscle wasting and subcutaneous fat loss - indicative of moderate malnutrition in setting of chronic disease. Pt reported decreased appetite since June 2021, but denied N/V, abdominal pain, or difficulty chewing/swallowing . No %PO intake at this time. Stage III (R Heel) / Stage II (Sacrum) Pressure ulcers and dry/flaky skin breakdown of LE . Recommended Zinc Sulfate, Vitamin C, and Micah BID administration. Burn Absent Trauma Absent GI Symptoms None Food Allergy No Skin Integrity/Comment Dry, flaking, breakdown, III Ulcer Minimum of two criteria Yes Body Fat Depletion Moderate depletion (severe) Muscle Mass Moderate Depletion (severe) #2 Nutrition Diagnosis Altered nutrition-related laboratory values Etiology GERALDINE on CKD As Evidenced by Signs and Symptoms BUN 33 / Cr 3.1 / Na 136 #1 Nutrition Diagnosis Malnutrition Comments: Moderate in setting of chronic disease. Etiology Decreased appetite ~10mo As Evidenced by Signs and Symptoms Pt report of decreased appetite over ~10mo, moderate muscle wasting (temples, acromion) / subcutaneous fat loss (triceps). Is patient on ventilator? No Is Patient Ambulatory and/or Out of Bed No REE-([facility]-confined to bed) 7877.438 Calculation Used for Recommendations [facility] Additional Notes Protein: 0.9-1.2g/kg AdjBW; 83 -111g PRO q day Fluid: 500mL + total output or per team Nutrition Intervention Change Diet Order: Recommend changing diet to renal diet if blood glucose is WNL. Add Supplement/Snack (indicate name/kcal Micah BID /protein ) Provides kCal: 180 Goal #1 Pt to consume >75% of estimated energy/protein needs through current diet order Goal #2 Normalize nutrition-related labs through diet modification Additional Comments Monitor %PO intake, nutrition- related lab values, wt status, and integumentary system <RUSTY FIELDS - Last Filed: 05/05/22 23:32> Assessment and Plan Assessment and plan: I saw and evaluated the patient. I agree with the findings and the plan of care as documented in the Nurse Practitioner's~note, with the following corrections and additions. Hospitalist Physical - Constitutional Vitals: Temp Pulse Resp BP Pulse Ox 99 F 82 15 83/47 98 05/05/22 19:49 05/05/22 22:50 05/05/22 22:30 05/05/22 22:50 05/05/22 22:30 Results - Labs CBC & Chem 7: 05/05/22 05:00 05/05/22 04:00 Labs: Laboratory Last Values WBC 20.1 K/mm3 (4.5-11.0) H 05/05/22 05:00 RBC 2.46 M/mm3 (3.65-5.03) L 05/05/22 05:00 Hgb 7.8 gm/dl (11.8-15.2) L 05/05/22 05:00 Hct 23.1 % (35.5-45.6) L 05/05/22 05:00 MCV 94 fl (84-94) 05/05/22 05:00 MCH 32 pg (28-32) 05/05/22 05:00 MCHC 34 % (32-34) 05/05/22 05:00 RDW 15.6 % (13.2-15.2) H 05/05/22 05:00 Plt Count 128 K/mm3 (140-440) L 05/05/22 05:00 Lymph % (Auto) 7.6 % (13.4-35.0) L 05/02/22 05:09 [place] % (Auto) 3.9 % (0.0-7.3) 05/02/22 05:09 Eos % (Auto) 0.0 % (0.0-4.3) 05/02/22 05:09 Baso % (Auto) 0.5 % (0.0-1.8) 05/02/22 05:09 Lymph # (Auto) 1.3 K/mm3 (1.2-5.4) 05/02/22 05:09 [place] # (Auto) 0.7 K/mm3 (0.0-0.8) 05/02/22 05:09 Eos # (Auto) 0.0 K/mm3 (0.0-0.4) 05/02/22 05:09 Baso # (Auto) 0.1 K/mm3 (0.0-0.1) 05/02/22 05:09 Add Manual Diff Complete 05/01/22 17:36 Total Counted 100 05/01/22 17:36 Seg Neutrophils % 88.0 % (40.0-70.0) H 05/02/22 05:09 Seg Neuts % (Manual) 86.0 % (40.0-70.0) H 05/01/22 17:36 Band Neutrophils % 12.0 % 05/01/22 17:36 Lymphocytes % (Manual) 1.0 % (13.4-35.0) L 05/01/22 17:36 Reactive Lymphs % (Man) 0 % 05/01/22 17:36 Monocytes % (Manual) 0 % (0.0-7.3) 05/01/22 17:36 Eosinophils % (Manual) 0 % (0.0-4.3) 05/01/22 17:36 Basophils % (Manual) 0 % (0.0-1.8) 05/01/22 17:36 Metamyelocytes % 1.0 % 05/01/22 17:36 Myelocytes % 0 % 05/01/22 17:36 Promyelocytes % 0 % 05/01/22 17:36 Blast Cells % 0 % 05/01/22 17:36 Nucleated RBC % Not Reportable 05/01/22 17:36 Seg Neutrophils # 15.2 K/mm3 (1.8-7.7) H 05/02/22 05:09 Seg Neutrophils # Man 7.7 K/mm3 (1.8-7.7) 05/01/22 17:36 Band Neutrophils # 1.1 K/mm3 05/01/22 17:36 Lymphocytes # (Manual) 0.1 K/mm3 (1.2-5.4) L 05/01/22 17:36 Abs React Lymphs (Man) 0.0 K/mm3 05/01/22 17:36 Monocytes # (Manual) 0.0 K/mm3 (0.0-0.8) 05/01/22 17:36 Eosinophils # (Manual) 0.0 K/mm3 (0.0-0.4) 05/01/22 17:36 Basophils # (Manual) 0.0 K/mm3 (0.0-0.1) 05/01/22 17:36 Metamyelocytes # 0.1 K/mm3 05/01/22 17:36 Myelocytes # 0.0 K/mm3 05/01/22 17:36 Promyelocytes # 0.0 K/mm3 05/01/22 17:36 Blast Cells # 0.0 K/mm3 05/01/22 17:36 WBC Morphology Not Reportable 05/01/22 17:36 Hypersegmented Neuts Not Reportable 05/01/22 17:36 Hyposegmented Neuts Not Reportable 05/01/22 17:36 Hypogranular Neuts Not Reportable 05/01/22 17:36 Smudge Cells Not Reportable 05/01/22 17:36 Toxic Granulation Not Reportable 05/01/22 17:36 Toxic Vacuolation Not Reportable 05/01/22 17:36 Dohle Bodies Not Reportable 05/01/22 17:36 Pelger-Huet Anomaly Not Reportable 05/01/22 17:36 Arnold Rods Not Reportable 05/01/22 17:36 Platelet Estimate Consistent w auto 05/01/22 17:36 Clumped Platelets Not Reportable 05/01/22 17:36 Plt Clumps, EDTA Not Reportable 05/01/22 17:36 Large Platelets Not Reportable 05/01/22 17:36 Giant Platelets Not Reportable 05/01/22 17:36 Platelet Satelliting Not Reportable 05/01/22 17:36 Plt Morphology Comment Not Reportable 05/01/22 17:36 RBC Morphology Not Reportable 05/01/22 17:36 Dimorphic RBCs Not Reportable 05/01/22 17:36 Polychromasia Not Reportable 05/01/22 17:36 Hypochromasia Few 05/01/22 17:36 Poikilocytosis Not Reportable 05/01/22 17:36 Anisocytosis Not Reportable 05/01/22 17:36 Microcytosis Not Reportable 05/01/22 17:36 Macrocytosis Not Reportable 05/01/22 17:36 Spherocytes Not Reportable 05/01/22 17:36 Pappenheimer Bodies Not Reportable 05/01/22 17:36 Sickle Cells Not Reportable 05/01/22 17:36 Target Cells Not Reportable 05/01/22 17:36 Tear Drop Cells Not Reportable 05/01/22 17:36 Ovalocytes Not Reportable 05/01/22 17:36 Helmet Cells Not Reportable 05/01/22 17:36 Vizcarra-Tobin Bodies Not Reportable 05/01/22 17:36 [place] Rings Not Reportable 05/01/22 17:36 Goyo Cells Not Reportable 05/01/22 17:36 Bite Cells Not Reportable 05/01/22 17:36 Crenated Cell Not Reportable 05/01/22 17:36 Elliptocytes Not Reportable 05/01/22 17:36 Acanthocytes (Spur) Not Reportable 05/01/22 17:36 Rouleaux Not Reportable 05/01/22 17:36 Hemoglobin C Crystals Not Reportable 05/01/22 17:36 Schistocytes Not Reportable 05/01/22 17:36 Malaria parasites Not Reportable 05/01/22 17:36 ESR 43 mm/Hr (0-20) 05/02/22 05:09 Harpreet Bodies Not Reportable 05/01/22 17:36 Hem Pathologist Commnt No 05/01/22 17:36 Sodium 134 mmol/L (137-145) L 05/05/22 04:00 Potassium 3.5 mmol/L (3.6-5.0) L 05/05/22 04:00 Chloride 96.4 mmol/L (98-107) L 05/05/22 04:00 Carbon Dioxide 28 mmol/L (22-30) 05/05/22 04:00 Anion Gap 13 mmol/L 05/05/22 04:00 BUN 32 mg/dL (9-20) H 05/05/22 04:00 Creatinine 2.8 mg/dL (0.8-1.3) H 05/05/22 04:00 Estimated GFR 28 ml/min 05/05/22 04:00 BUN/Creatinine Ratio 11 % 05/05/22 04:00 Glucose 85 mg/dL (75-100) 05/05/22 04:00 POC Glucose 81 mg/dL (70-105) 05/05/22 16:07 Lactic Acid 5.80 mmol/L (0.7-2.0) H* 05/04/22 09:09 Calcium 6.8 mg/dL (8.4-10.2) L 05/05/22 04:00 Phosphorus 2.80 mg/dL (2.5-4.5) 05/05/22 04:00 Magnesium 1.90 mg/dL (1.7-2.3) 05/05/22 04:00 Total Bilirubin 0.30 mg/dL (0.1-1.2) 05/02/22 05:09 AST 18 units/L (5-40) 05/02/22 05:09 ALT 7 units/L (7-56) 05/02/22 05:09 Alkaline Phosphatase 113 units/L (35-129) 05/02/22 05:09 C-Reactive Protein 16.10 mg/dL (0.00-1.30) H 05/01/22 22:57 NT-Pro-B Natriuret Pep 79911 pg/mL (0-900) H 05/01/22 22:57 Total Protein 6.0 g/dL (6.3-8.2) L D 05/02/22 05:09 Albumin 1.6 g/dL (3.9-5) L 05/02/22 05:09 Albumin/Globulin Ratio 0.4 % 05/02/22 05:09 TSH 0.918 mlU/mL (0.270-4.200) 05/01/22 22:57 Free T4 0.96 ng/dL (0.76-1.46) 05/01/22 22:57 Urine Color Anur[place]ha (Yellow) 05/05/22 09:45 Urine Turbidity Slightly cloudy (Clear) 05/05/22 09:45 Urine pH 5.0 (5.0-7.0) 05/05/22 09:45 Ur Specific [place] 1.015 (1.003-1.030) 05/05/22 09:45 Specific [place] (Man) 1.015 (1.003-1.030) 05/02/22 01:24 Urine Protein 30 mg/dl mg/dL (Negative) 05/05/22 09:45 Ur Protein (Man) <30 mg dl mg/dL (Negative) 05/02/22 01:24 Urine Glucose (UA) Negative mg/dL (Negative) 05/05/22 09:45 Urine Ketones Trace mg/dL (Negative) 05/05/22 09:45 Ur Ketones (Man) Negative (Negative) 05/02/22 01:24 Urine Blood Negative (Negative) 05/05/22 09:45 Urine Nitrite Negative (Negative) 05/05/22 09:45 Ur Nitrite (Man) Negative (Negative) 05/02/22 01:24 Ur Reducing Substances Not Reportable 05/05/22 09:45 Urine Bilirubin Negative (Negative) 05/05/22 09:45 Urine Bilirubin (Man) Negative (Negative) 05/02/22 01:24 Urine Ictotest Not Reportable 05/05/22 09:45 Urine Urobilinogen Small mg/dL (<2.0) 05/05/22 09:45 Ur Leukocyte Esterase Small (Negative) 05/05/22 09:45 Leukocyte Esterase (Man) Negative (Negative) 05/02/22 01:24 Urine WBC (Auto) 7.0 /HPF (0.0-6.0) H 05/05/22 09:45 Urine RBC (Auto) < 1.0 /HPF (0.0-6.0) 05/05/22 09:45 U Epithel Cells (Auto) 2.0 /HPF (0-13.0) 05/05/22 09:45 Urine Bacteria (Auto) 1+ /HPF (Negative) 05/05/22 09:45 Urine RBC (Manual) Negative (Negative) 05/02/22 01:24 Amorphous Crystals Few 05/05/22 09:45 Hyaline Casts 1 /LPF 05/05/22 09:45 Ur Yeast w Hyphae Few /HPF 05/05/22 09:45 Urine Yeast (Budding) 3+ /HPF 05/05/22 09:45 Blood Type O POSITIVE 05/01/22 22:57 Antibody Screen Negative 05/01/22 22:57 Microbiology: Microbiology 05/01/22 17:36 Peripheral/Venous Blood Culture - Preliminary NO GROWTH AFTER 4 DAYS 05/01/22 17:36 Peripheral/Venous Blood Culture - Preliminary NO GROWTH AFTER 4 DAYS Venegas/IV: Voiding Method Condom Catheter Active Medications - Current Medications Current Medications: Generic Name Dose Route Start Last Admin Trade Name Freq PRN Reason Stop Dose Admin Acetaminophen 650 mg 05/05/22 16:42 05/05/22 17:04 Acetaminophen 325 Mg Tab PO 650 mg Q4H PRN Administration Non Cardiac Pain or Temp>100.5 Al Hydrox/Mg Hydrox/Simethicone 15 ml 05/05/22 09:49 Alum-Mag Hydroxide-Simethicone 750-477-66ww/5ml Oral Liqd 30 Ml PO Q4H PRN Indigestion Ascorbic Acid 500 mg 05/03/22 12:00 05/05/22 22:56 Ascorbic Acid 500 Mg Tab PO 500 mg BID ALEX Administration Benzocaine/Menthol 1 each 05/02/22 11:00 05/03/22 22:08 Benzocaine/Menthol Lozenge MM 1 each Q2H PRN Administration Sore Throat Carvedilol 6.25 mg 05/04/22 11:00 05/05/22 22:50 Carvedilol 6.25 Mg Tab PO Not Given BID ALEX Dextrose 25 ml 05/05/22 12:18 05/05/22 12:43 Dextrose 50% In Water (25gm) 50 Ml Syringe IV 25 ml Q30MIN PRN Administration Hypoglycemia Protocol Midodrine 10 mg 05/03/22 12:00 05/05/22 16:21 Midodrine 10 Mg Tab PO 10 mg TID@0800,1200,1600 ALEX Administration Ondansetron HCl 4 mg 05/04/22 09:29 05/05/22 16:21 Ondansetron 4 Mg/2 Ml Inj IV 4 mg Q4H PRN Administration Nausea And Vomiting Oxycodone/Acetaminophen 1 tab 05/01/22 20:29 Oxycodone /Acetaminophen 5-325mg Tab PO Q6H PRN Pain, Moderate (4-6) Simethicone 80 mg 05/03/22 20:00 05/03/22 20:40 Simethicone 80 Mg Chew Tab PO 80 mg Q6H PRN Administration Gas pain Sodium Chloride 10 ml 05/01/22 22:00 05/05/22 22:50 Sodium Chloride 0.9% 10 Ml Flush Syringe IV 10 ml BID ALEX Administration Sodium Chloride 10 ml 05/01/22 20:29 05/04/22 09:35 Sodium Chloride 0.9% 10 Ml Flush Syringe IV 10 ml PRN PRN Administration LINE FLUSH Zinc Sulfate 220 mg 05/03/22 22:00 05/05/22 22:56 Zinc Sulfate 220 Mg Cap PO 220 mg BID ALEX Administration Nutrition/Malnutrition Assess - Dietary Evaluation Nutrition/Malnutrition Findings: Nutrition Notes Start: 05/03/22 13:40 Freq: Status: Active Protocol: Document 05/03/22 13:40 CM (Rec: 05/03/22 14:02 CM [id number]) Co-Sign 05/03/22 13:40 WW Nutrition Notes 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 Pt reported UBW of 249lb and wt loss of ~90lb beginning in June 2021 d/t unspecified illness. Pt currently ~9lb greater than UBW at this time - BLE edema noted at time of visit (May be masking weight loss). Weight Status Obese Subjective/Other Information RD consult for malnutrition screening score 2 and skin risk assessment. Nutrition focused physical assessment performed indicating moderate muscle wasting and subcutaneous fat loss - indicative of moderate malnutrition in setting of chronic disease. Pt reported decreased appetite since June 2021, but denied N/V, abdominal pain, or difficulty chewing/swallowing . No %PO intake at this time. Stage III (R Heel) / Stage II (Sacrum) Pressure ulcers and dry/flaky skin breakdown of LE . Recommended Zinc Sulfate, Vitamin C, and Micah BID administration. Burn Absent Trauma Absent GI Symptoms None Food Allergy No Skin Integrity/Comment Dry, flaking, breakdown, III Ulcer Minimum of two criteria Yes Body Fat Depletion Moderate depletion (severe) Muscle Mass Moderate Depletion (severe) #2 Nutrition Diagnosis Altered nutrition-related laboratory values Etiology GERALDINE on CKD As Evidenced by Signs and Symptoms BUN 33 / Cr 3.1 / Na 136 #1 Nutrition Diagnosis Malnutrition Comments: Moderate in setting of chronic disease. Etiology Decreased appetite ~10mo As Evidenced by Signs and Symptoms Pt report of decreased appetite over ~10mo, moderate muscle wasting (temples, acromion) / subcutaneous fat loss (triceps). Is patient on ventilator? No Is Patient Ambulatory and/or Out of Bed No REE-([place]-St. Jeor-confined to bed) 2272.864 Calculation Used for Recommendations [place]-St Jeor Additional Notes Protein: 0.9-1.2g/kg AdjBW; 83 -111g PRO q day Fluid: 500mL + total output or per team Nutrition Intervention Change Diet Order: Recommend changing diet to renal diet if blood glucose is WNL. Add Supplement/Snack (indicate name/kcal Micah BID /protein ) Provides kCal: 180 Goal #1 Pt to consume >75% of estimated energy/protein needs through current diet order Goal #2 Normalize nutrition-related labs through diet modification Additional Comments Monitor %PO intake, nutrition- related lab values, wt status, and integumentary system
[2022-05-05] MEDS ORDERED: DEXTROSE 50% IN WATER (25GM) 50 ML SYRINGE IV PRN (12:18)
[2022-05-05 12:23] LABS: Bilirubin,Urine Negative (Negative); Color,Urine Amber (Yellow)
[2022-05-05 12:24] LABS: Blood,Urine Negative (Negative); RBC,Urine < 1.0 /HPF (0.0-6.0); Urobilinogen,Urine SMALL mg/dL (<2.0)
[2022-05-05] MEDS: DEXTROSE 50% IN WATER (25GM) 50 ML SYRINGE IV PRN (12:43)
[2022-05-05] MEDS: ONDANSETRON 4 MG/2 ML INJ IV PRN (16:21)
[2022-05-05] MEDS ORDERED: SODIUM CHLORIDE 0.9% 1000 ML 1,000 ML IV ONE (16:52)
[2022-05-05] MEDS ORDERED: VANCOMYCIN/NS 1 GM/250 ML 1 GM/250 ML BAG IV ONE (16:53)
[2022-05-05] MEDS: ACETAMINOPHEN 325 MG TAB PO PRN (17:04)
[2022-05-05] MEDS ORDERED: VANCOMYCIN 2,000 MG in SODIUM CHLORIDE 0.9% 500 ML 500 ML IV ONE (18:00)
[2022-05-06] MEDS: DEXTROSE 50% IN WATER (25GM) 50 ML SYRINGE IV PRN (06:23)
[2022-05-06] MEDS: MIDODRINE 10 MG TAB PO SCH ×3 (08:47→16:28)
--- NOTE | 2022-05-06 09:18 | Progress Note ---
Assessment and Plan Assessment and plan: History Interval history: This is a 76-year-old male with OHS, CVA x2, legally blind, CHF with AICD in situ, CKD (? Stage IV) not on hemodialysis and DM who presented to the em ergency department on 05/01 via EMS with complaints of feeling weak over the past couple days. Upon EMS arrival patient was found to be hypotensive SBP in the 50s and was subsequently placed on IV fluid and transported to [facility]. In the emergency department patient was found to have a systolic blood pressure in the 80s, GERALDINE with ATN, metabolic acidosis as well as fluid overload. Patient was admitted to [facility] initially but later required the use of vasopressors and was upgraded to ICU. Patient was admitted to the hospitalist service with r/o sepsis, GERALDINE with ATN, metabolic acidosis,, toxic metabolic encephalopathy, fluid overload with consults to [facility]. Hospital course to date: 05/02: Patient Levophed weaned, added midodrine. Per CCM he received additional 4 L LR bolus. 05/03: Started on zinc, Micah and vitamin C per nutrition, started on dobutamine. Wean Levophed as tolerated. Echocardiogram pending. 05/04: Remains on dobutamine drip in the morning but was discontinued later. Now started on Coreg twice daily. We will continue to monitor in the ICU and po ssible transfer to floor tomorrow. 05/05: We will consult cardiology given reduction in EF. Patient will be transferred to [facility]. We will continue Coreg. No acute events reported overnight. CXR and UA obtained due to low-grade fever. CXR unremarkable. 05/06: Will add coreg 3.125. hold off on rashid given renal fx. Cardiology is consulted re: HFr[facility] medical management. Complaining of chills. CXR and UA reviewed. CXR shows mild interstitial markings. UA shows mildly elevated urine wbc cells. denies any urinary symptoms but feels chills and documented temp of 100F. WBC ct on 05/05 was 20.1K after being 8.9K on 05/01. Will order Rocephin IV. Was treated with vancomycin x 1 on 05/05 and recultured. COVID 19 test ordered. AM labs ordered. Otherwise medically stable for transfer to [facility]. Assessment and plan: This is a 76-year-old male with OHS, CVA x2, CHF and AICD in situ, CKD admitted with GERALDINE, metabolic acidosis, toxic metabolic encephalopathy, fluid overload Neuro: Acute metabolic encephalopathy (resolved), h/o CVA x2, legally blind -Reorientation as needed -Maintain sleep-wake cycle -As needed analgesia Cardiac: Hypotension, lactic acidosis, h/o CHF with AICD in situ -Blood pressure monitoring per protocol -Vasopressor support with vasopressin -MAP goal greater than 65 -Midodrine p.o. -Echocardiogram showed shows severe global hypokinesis of left ventricle, LVEF 20%, trace pericardial effusion, moderate left pleural effusion -s/p Dobutamine gtt -Coreg -proBNP 99608 -S/p 3500 mL normal saline in the ED -S/p 4 L LR in the ICU Respiratory: NAD -CCM consulted, appreciate recommendations -Pulmonary hygiene -SPO2 monitoring -Supplemental oxygen as needed GI: Severe protein calorie malnutrition -Cardiac cc diet -PPI -CT abdomen/pelvis without contrast shows no abnormality noted within the abdomen or pelvis, moderate amount of calcified plaque seen throughout the abdominal aorta and common iliac arteries with out associated aneurysm, no GI ab normality other than simple sigmoid diverticulosis : Acute on chronic kidney disease -Monitor intake and output -Renally dose medications -Avoid nephrotoxic medications -Will not replete hypokalemia in setting of BUN/creatinine of 3.4/36 -Trend BMP ID: Sepsis POA, Chronic lymphedema, possible urinary tract infection -Presented with tachycardia, hypotension, acute kidney injury, leukocytosis....source potentially urinary. -f/u blood culture- NGTD. -WOCN consulted -Monitor WBC and temperature curve - Rocephin IV x 3-5 days for UTI. Endo: h/o DM -Avoid hypoglycemia -SSI -Accu-Cheks q. ACH S Heme: Leukocytosis, thrombocytopenia -Trend CBC -Transfuse hemoglobin less than 7 -SCDs to BLE while in bed The high probability of a clinically significant, sudden or life threatening deterioration of the [multi] system(s) required my full and direct attention, intervention and personal management. The aggregate critical care time was [60] minutes. This time is in addition to time spent performing reported procedures but includes the following: [x] Data Review and interpretation [x] Patient assessment and monitoring of vital signs [x] Documentation [x] Medication orders and management Disposition Plan: transfer to floor Total Time Spent with Patient (Minutes): 60 History Interval history: Complaining of chills.wrapped in blanket. Fever documented 100F. Hospitalist Physical - Physical exam Narrative exam: Physical Exam: VITAL SIGNS: Reviewed. GENERAL: The patient appears normally developed, Vital signs as documented. HEAD: No signs of head trauma. EYES: Pupils are equal. Extraocular motions intact. EARS: Hearing grossly intact. MOUTH: Oropharynx is normal. NECK: No adenopathy, no JVD. CHEST: Chest with clear breath sounds bilaterally. No wheezes, rales, or rhonchi. CARDIAC: Regular rate and rhythm. S1 and S2, without murmurs, gallops, or rubs. VASCULAR: No Edema. Peripheral pulses normal and equal in all extremities. ABDOMEN: Soft, non tender and non distended. No rebound or guarding, and no masses palpated. Bowel Sounds normal. MUSCULOSKELETAL: Good range of motion of all major joints. Extremities without clubbing, cyanosis or edema. NEUROLOGIC EXAM: Alert and oriented x 4. no focal sensory or strength deficits. PSYCHIATRIC: Mood normal. SKIN: detail exam as documented in skin assessment - Constitutional Vitals: Temp Pulse Resp BP Pulse Ox 100.0 F H 92 H 18 100/58 99 05/06/22 07:29 05/06/22 06:51 05/06/22 05:30 05/06/22 05:30 05/06/22 05:30 General appearance: Present: no acute distress, other (asleep) Results - Labs CBC & Chem 7: 05/05/22 05:00 05/05/22 04:00 Labs: Laboratory Last Values WBC 20.1 K/mm3 (4.5-11.0) H 05/05/22 05:00 RBC 2.46 M/mm3 (3.65-5.03) L 05/05/22 05:00 Hgb 7.8 gm/dl (11.8-15.2) L 05/05/22 05:00 Hct 23.1 % (35.5-45.6) L 05/05/22 05:00 MCV 94 fl (84-94) 05/05/22 05:00 MCH 32 pg (28-32) 05/05/22 05:00 MCHC 34 % (32-34) 05/05/22 05:00 RDW 15.6 % (13.2-15.2) H 05/05/22 05:00 Plt Count 128 K/mm3 (140-440) L 05/05/22 05:00 Lymph % (Auto) 7.6 % (13.4-35.0) L 05/02/22 05:09 [place] % (Auto) 3.9 % (0.0-7.3) 05/02/22 05:09 Eos % (Auto) 0.0 % (0.0-4.3) 05/02/22 05:09 Baso % (Auto) 0.5 % (0.0-1.8) 05/02/22 05:09 Lymph # (Auto) 1.3 K/mm3 (1.2-5.4) 05/02/22 05:09 [place] # (Auto) 0.7 K/mm3 (0.0-0.8) 05/02/22 05:09 Eos # (Auto) 0.0 K/mm3 (0.0-0.4) 05/02/22 05:09 Baso # (Auto) 0.1 K/mm3 (0.0-0.1) 05/02/22 05:09 Add Manual Diff Complete 05/01/22 17:36 Total Counted 100 05/01/22 17:36 Seg Neutrophils % 88.0 % (40.0-70.0) H 05/02/22 05:09 Seg Neuts % (Manual) 86.0 % (40.0-70.0) H 05/01/22 17:36 Band Neutrophils % 12.0 % 05/01/22 17:36 Lymphocytes % (Manual) 1.0 % (13.4-35.0) L 05/01/22 17:36 Reactive Lymphs % (Man) 0 % 05/01/22 17:36 Monocytes % (Manual) 0 % (0.0-7.3) 05/01/22 17:36 Eosinophils % (Manual) 0 % (0.0-4.3) 05/01/22 17:36 Basophils % (Manual) 0 % (0.0-1.8) 05/01/22 17:36 Metamyelocytes % 1.0 % 05/01/22 17:36 Myelocytes % 0 % 05/01/22 17:36 Promyelocytes % 0 % 05/01/22 17:36 Blast Cells % 0 % 05/01/22 17:36 Nucleated RBC % Not Reportable 05/01/22 17:36 Seg Neutrophils # 15.2 K/mm3 (1.8-7.7) H 05/02/22 05:09 Seg Neutrophils # Man 7.7 K/mm3 (1.8-7.7) 05/01/22 17:36 Band Neutrophils # 1.1 K/mm3 05/01/22 17:36 Lymphocytes # (Manual) 0.1 K/mm3 (1.2-5.4) L 05/01/22 17:36 Abs React Lymphs (Man) 0.0 K/mm3 05/01/22 17:36 Monocytes # (Manual) 0.0 K/mm3 (0.0-0.8) 05/01/22 17:36 Eosinophils # (Manual) 0.0 K/mm3 (0.0-0.4) 05/01/22 17:36 Basophils # (Manual) 0.0 K/mm3 (0.0-0.1) 05/01/22 17:36 Metamyelocytes # 0.1 K/mm3 05/01/22 17:36 Myelocytes # 0.0 K/mm3 05/01/22 17:36 Promyelocytes # 0.0 K/mm3 05/01/22 17:36 Blast Cells # 0.0 K/mm3 05/01/22 17:36 WBC Morphology Not Reportable 05/01/22 17:36 Hypersegmented Neuts Not Reportable 05/01/22 17:36 Hyposegmented Neuts Not Reportable 05/01/22 17:36 Hypogranular Neuts Not Reportable 05/01/22 17:36 Smudge Cells Not Reportable 05/01/22 17:36 Toxic Granulation Not Reportable 05/01/22 17:36 Toxic Vacuolation Not Reportable 05/01/22 17:36 Dohle Bodies Not Reportable 05/01/22 17:36 Pelger-Huet Anomaly Not Reportable 05/01/22 17:36 Arnold Rods Not Reportable 05/01/22 17:36 Platelet Estimate Consistent w auto 05/01/22 17:36 Clumped Platelets Not Reportable 05/01/22 17:36 Plt Clumps, EDTA Not Reportable 05/01/22 17:36 Large Platelets Not Reportable 05/01/22 17:36 Giant Platelets Not Reportable 05/01/22 17:36 Platelet Satelliting Not Reportable 05/01/22 17:36 Plt Morphology Comment Not Reportable 05/01/22 17:36 RBC Morphology Not Reportable 05/01/22 17:36 Dimorphic RBCs Not Reportable 05/01/22 17:36 Polychromasia Not Reportable 05/01/22 17:36 Hypochromasia Few 05/01/22 17:36 Poikilocytosis Not Reportable 05/01/22 17:36 Anisocytosis Not Reportable 05/01/22 17:36 Microcytosis Not Reportable 05/01/22 17:36 Macrocytosis Not Reportable 05/01/22 17:36 Spherocytes Not Reportable 05/01/22 17:36 Pappenheimer Bodies Not Reportable 05/01/22 17:36 Sickle Cells Not Reportable 05/01/22 17:36 Target Cells Not Reportable 05/01/22 17:36 Tear Drop Cells Not Reportable 05/01/22 17:36 Ovalocytes Not Reportable 05/01/22 17:36 Helmet Cells Not Reportable 05/01/22 17:36 [place] Bodies Not Reportable 05/01/22 17:36 [place] Rings Not Reportable 05/01/22 17:36 Craig Cells Not Reportable 05/01/22 17:36 Bite Cells Not Reportable 05/01/22 17:36 Crenated Cell Not Reportable 05/01/22 17:36 Elliptocytes Not Reportable 05/01/22 17:36 Acanthocytes (Spur) Not Reportable 05/01/22 17:36 Rouleaux Not Reportable 05/01/22 17:36 Hemoglobin C Crystals Not Reportable 05/01/22 17:36 Schistocytes Not Reportable 05/01/22 17:36 Malaria parasites Not Reportable 05/01/22 17:36 ESR 43 mm/Hr (0-20) 05/02/22 05:09 Harpreet Bodies Not Reportable 05/01/22 17:36 Hem Pathologist Commnt No 05/01/22 17:36 Sodium 134 mmol/L (137-145) L 05/05/22 04:00 Potassium 3.5 mmol/L (3.6-5.0) L 05/05/22 04:00 Chloride 96.4 mmol/L (98-107) L 05/05/22 04:00 Carbon Dioxide 28 mmol/L (22-30) 05/05/22 04:00 Anion Gap 13 mmol/L 05/05/22 04:00 BUN 32 mg/dL (9-20) H 05/05/22 04:00 Creatinine 2.8 mg/dL (0.8-1.3) H 05/05/22 04:00 Estimated GFR 28 ml/min 05/05/22 04:00 BUN/Creatinine Ratio 11 % 05/05/22 04:00 Glucose 85 mg/dL (75-100) 05/05/22 04:00 POC Glucose 81 mg/dL (70-105) 05/05/22 23:41 Lactic Acid 5.80 mmol/L (0.7-2.0) H* 05/04/22 09:09 Calcium 6.8 mg/dL (8.4-10.2) L 05/05/22 04:00 Phosphorus 2.80 mg/dL (2.5-4.5) 05/05/22 04:00 Magnesium 1.90 mg/dL (1.7-2.3) 05/05/22 04:00 Total Bilirubin 0.30 mg/dL (0.1-1.2) 05/02/22 05:09 AST 18 units/L (5-40) 05/02/22 05:09 ALT 7 units/L (7-56) 05/02/22 05:09 Alkaline Phosphatase 113 units/L (35-129) 05/02/22 05:09 C-Reactive Protein 16.10 mg/dL (0.00-1.30) H 05/01/22 22:57 NT-Pro-B Natriuret Pep 82662 pg/mL (0-900) H 05/01/22 22:57 Total Protein 6.0 g/dL (6.3-8.2) L D 05/02/22 05:09 Albumin 1.6 g/dL (3.9-5) L 05/02/22 05:09 Albumin/Globulin Ratio 0.4 % 05/02/22 05:09 TSH 0.918 mlU/mL (0.270-4.200) 05/01/22 22:57 Free T4 0.96 ng/dL (0.76-1.46) 05/01/22 22:57 Urine Color Anuradha (Yellow) 05/05/22 09:45 Urine Turbidity Slightly cloudy (Clear) 05/05/22 09:45 Urine pH 5.0 (5.0-7.0) 05/05/22 09:45 Ur Specific Arnett 1.015 (1.003-1.030) 05/05/22 09:45 Specific [place] (Man) 1.015 (1.003-1.030) 05/02/22 01:24 Urine Protein 30 mg/dl mg/dL (Negative) 05/05/22 09:45 Ur Protein (Man) <30 mg dl mg/dL (Negative) 05/02/22 01:24 Urine Glucose (UA) Negative mg/dL (Negative) 05/05/22 09:45 Urine Ketones Trace mg/dL (Negative) 05/05/22 09:45 Ur Ketones (Man) Negative (Negative) 05/02/22 01:24 Urine Blood Negative (Negative) 05/05/22 09:45 Urine Nitrite Negative (Negative) 05/05/22 09:45 Ur Nitrite (Man) Negative (Negative) 05/02/22 01:24 Ur Reducing Substances Not Reportable 05/05/22 09:45 Urine Bilirubin Negative (Negative) 05/05/22 09:45 Urine Bilirubin (Man) Negative (Negative) 05/02/22 01:24 Urine Ictotest Not Reportable 05/05/22 09:45 Urine Urobilinogen Small mg/dL (<2.0) 05/05/22 09:45 Ur Leukocyte Esterase Small (Negative) 05/05/22 09:45 Leukocyte Esterase (Man) Negative (Negative) 05/02/22 01:24 Urine WBC (Auto) 7.0 /HPF (0.0-6.0) H 05/05/22 09:45 Urine RBC (Auto) < 1.0 /HPF (0.0-6.0) 05/05/22 09:45 U Epithel Cells (Auto) 2.0 /HPF (0-13.0) 05/05/22 09:45 Urine Bacteria (Auto) 1+ /HPF (Negative) 05/05/22 09:45 Urine RBC (Manual) Negative (Negative) 05/02/22 01:24 Amorphous Crystals Few 05/05/22 09:45 Hyaline Casts 1 /LPF 05/05/22 09:45 Ur Yeast w Hyphae Few /HPF 05/05/22 09:45 Urine Yeast (Budding) 3+ /HPF 05/05/22 09:45 Blood Type O POSITIVE 05/01/22 22:57 Antibody Screen Negative 05/01/22 22:57 Microbiology: Microbiology 05/05/22 18:35 Peripheral/Venous Blood Culture - Preliminary Culture in Progress 05/05/22 18:35 Peripheral/Venous Blood Culture - Preliminary Culture in Progress 05/01/22 17:36 Peripheral/Venous Blood Culture - Preliminary NO GROWTH AFTER 4 DAYS 05/01/22 17:36 Peripheral/Venous Blood Culture - Preliminary NO GROWTH AFTER 4 DAYS Venegas/IV: Voiding Method Condom Catheter Active Medications - Current Medications Current Medications: Generic Name Dose Route Start Last Admin Trade Name Freq PRN Reason Stop Dose Admin Acetaminophen 650 mg 05/05/22 16:42 05/05/22 17:04 Acetaminophen 325 Mg Tab PO 650 mg Q4H PRN Administration Non Cardiac Pain or Temp>100.5 Al Hydrox/Mg Hydrox/Simethicone 15 ml 05/05/22 09:49 Alum-Mag Hydroxide-Simethicone 189-894-20sp/5ml Oral Liqd 30 Ml PO Q4H PRN Indigestion Ascorbic Acid 500 mg 05/03/22 12:00 05/05/22 22:56 Ascorbic Acid 500 Mg Tab PO 500 mg BID ALEX Administration Benzocaine/Menthol 1 each 05/02/22 11:00 05/03/22 22:08 Benzocaine/Menthol Lozenge MM 1 each Q2H PRN Administration Sore Throat Carvedilol 6.25 mg 05/04/22 11:00 05/05/22 22:50 Carvedilol 6.25 Mg Tab PO Not Given BID ALEX Dextrose 25 ml 05/05/22 12:18 05/06/22 06:23 Dextrose 50% In Water (25gm) 50 Ml Syringe IV 25 ml Q30MIN PRN Administration Hypoglycemia Protocol Midodrine 10 mg 05/03/22 12:00 05/06/22 08:47 Midodrine 10 Mg Tab PO 10 mg TID@0800,1200,1600 ALEX Administration Ondansetron HCl 4 mg 05/04/22 09:29 05/05/22 16:21 Ondansetron 4 Mg/2 Ml Inj IV 4 mg Q4H PRN Administration Nausea And Vomiting Oxycodone/Acetaminophen 1 tab 05/01/22 20:29 Oxycodone /Acetaminophen 5-325mg Tab PO Q6H PRN Pain, Moderate (4-6) Simethicone 80 mg 05/03/22 20:00 05/03/22 20:40 Simethicone 80 Mg Chew Tab PO 80 mg Q6H PRN Administration Gas pain Sodium Chloride 10 ml 05/01/22 22:00 05/05/22 22:50 Sodium Chloride 0.9% 10 Ml Flush Syringe IV 10 ml BID ALEX Administration Sodium Chloride 10 ml 05/01/22 20:29 05/04/22 09:35 Sodium Chloride 0.9% 10 Ml Flush Syringe IV 10 ml PRN PRN Administration LINE FLUSH Zinc Sulfate 220 mg 05/03/22 22:00 05/05/22 22:56 Zinc Sulfate 220 Mg Cap PO 220 mg BID ALEX Administration Nutrition/Malnutrition Assess - Dietary Evaluation Nutrition/Malnutrition Findings: Nutrition Notes Start: 05/03/22 13:40 Freq: Status: Active Protocol: Document 05/03/22 13:40 CM (Rec: 05/03/22 14:02 CM [id number]) Co-Sign 05/03/22 13:40 WW Nutrition Notes 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 Pt reported UBW of 249lb and wt loss of ~90lb beginning in June 2021 d/t unspecified illness. Pt currently ~9lb greater than UBW at this time - BLE edema noted at time of visit (May be masking weight loss). Weight Status Obese Subjective/Other Information RD consult for malnutrition screening score 2 and skin risk assessment. Nutrition focused physical assessment performed indicating moderate muscle wasting and subcutaneous fat loss - indicative of moderate malnutrition in setting of chronic disease. Pt reported decreased appetite since June 2021, but denied N/V, abdominal pain, or difficulty chewing/swallowing . No %PO intake at this time. Stage III (R Heel) / Stage II (Sacrum) Pressure ulcers and dry/flaky skin breakdown of LE . Recommended Zinc Sulfate, Vitamin C, and Micah BID administration. Burn Absent Trauma Absent GI Symptoms None Food Allergy No Skin Integrity/Comment Dry, flaking, breakdown, III Ulcer Minimum of two criteria Yes Body Fat Depletion Moderate depletion (severe) Muscle Mass Moderate Depletion (severe) #2 Nutrition Diagnosis Altered nutrition-related laboratory values Etiology GERALDINE on CKD As Evidenced by Signs and Symptoms BUN 33 / Cr 3.1 / Na 136 #1 Nutrition Diagnosis Malnutrition Comments: Moderate in setting of chronic disease. Etiology Decreased appetite ~10mo As Evidenced by Signs and Symptoms Pt report of decreased appetite over ~10mo, moderate muscle wasting (temples, acromion) / subcutaneous fat loss (triceps). Is patient on ventilator? No Is Patient Ambulatory and/or Out of Bed No REE-([place]-St. Jeor-confined to bed) 3251.168 Calculation Used for Recommendations [place]-St Jeor Additional Notes Protein: 0.9-1.2g/kg AdjBW; 83 -111g PRO q day Fluid: 500mL + total output or per team Nutrition Intervention Change Diet Order: Recommend changing diet to renal diet if blood glucose is WNL. Add Supplement/Snack (indicate name/kcal Micah BID /protein ) Provides kCal: 180 Goal #1 Pt to consume >75% of estimated energy/protein needs through current diet order Goal #2 Normalize nutrition-related labs through diet modification Additional Comments Monitor %PO intake, nutrition- related lab values, wt status, and integumentary system
[2022-05-06] MEDS: ZINC SULFATE 220 MG CAP PO SCH ×2 (11:18→21:51)
[2022-05-06] MEDS: carvediloL 6.25 MG TAB PO SCH ×2 (11:18→21:51)
[2022-05-06] MEDS: ASCORBIC ACID 500 MG TAB PO SCH ×2 (11:19→21:51)
--- NOTE | 2022-05-06 13:00 | Progress Note ---
Assessment and Plan 66 y/o male with hypotension of unknown etiology 05/06/22: Spoke with cards this am who will see an offer advice about medical management for heart failure. [facility] not [facility] anyone in 2 years time. He did spike again yesterday so blood cultures were obtained and it appears a 1 time dose of a vanc was given. Follow up cultures. Remains on room air. At this point. Will see PRN. Call if questions or if pulmonary status changes. 05/05/22: EF is now 20%, per patient it was 30-35% about 2 years ago. Consider cards consult to help optimize heart failure regimen. Checked repeat CXR and ordered UA given fever. IF spikes again will need blood cultures. Will transfer to step down. 05/04/22: Will try low dose Coreg today now that BP is better. Continue to monitor in ICU. Echo still not read. 05/03/22: Hold further fluids and stop continuous fluids. Will attempt inotropes. Follow up echo results. If inotropes done work, will consider stress dose steroids. 1. Most likely dry given BUN/CR. Will give more fluids 2. wean pressors to off for maps >65 CCT 31 minutes. Subjective Date of service: 05/06/22 Interval history: Stable in step down. BB was held again today secondary to BP Objective - Constitutional Vitals: Vital Signs - 12hr 05/06/22 05/06/22 05/06/22 01:00 01:30 01:59 Temperature Pulse Rate 82 85 Pulse Rate [ From Monitor] Respiratory 14 14 Rate Respiratory 16 Rate [ Generalized] Blood Pressure 90/48 90/48 O2 Sat by Pulse 100 99 Oximetry 05/06/22 05/06/22 05/06/22 02:00 02:30 03:00 Temperature Pulse Rate 84 84 87 Pulse Rate [ From Monitor] Respiratory 13 14 16 Rate Respiratory Rate [ Generalized] Blood Pressure 90/50 90/50 87/57 O2 Sat by Pulse 99 98 98 Oximetry 05/06/22 05/06/22 05/06/22 03:30 03:38 04:00 Temperature 98.4 F Pulse Rate 87 92 H Pulse Rate [ From Monitor] Respiratory 15 15 Rate Respiratory Rate [ Generalized] Blood Pressure 87/57 104/63 O2 Sat by Pulse 98 98 Oximetry 05/06/22 05/06/22 05/06/22 04:30 05:00 05:30 Temperature Pulse Rate 88 91 H 91 H Pulse Rate [ From Monitor] Respiratory 13 17 18 Rate Respiratory Rate [ Generalized] Blood Pressure 104/63 100/58 100/58 O2 Sat by Pulse 100 98 99 Oximetry 05/06/22 05/06/22 05/06/22 06:51 07:29 08:00 Temperature 100.0 F H Pulse Rate 92 H Pulse Rate [ 92 H From Monitor] Respiratory 21 Rate Respiratory Rate [ Generalized] Blood Pressure O2 Sat by Pulse 99 Oximetry 05/06/22 05/06/22 05/06/22 08:30 09:28 09:30 Temperature Pulse Rate 90 94 H 94 H Pulse Rate [ From Monitor] Respiratory 22 21 21 Rate Respiratory Rate [ Generalized] Blood Pressure O2 Sat by Pulse 99 99 98 Oximetry 05/06/22 05/06/22 05/06/22 10:00 10:30 11:09 Temperature Pulse Rate 93 H 95 H 96 H Pulse Rate [ From Monitor] Respiratory 20 20 16 Rate Respiratory Rate [ Generalized] Blood Pressure 99/54 101/53 O2 Sat by Pulse 98 99 99 Oximetry 05/06/22 05/06/22 05/06/22 11:18 11:30 12:00 Temperature Pulse Rate 989 H 98 H 100 H Pulse Rate [ From Monitor] Respiratory 15 27 H Rate Respiratory Rate [ Generalized] Blood Pressure 103/53 103/53 106/60 O2 Sat by Pulse 99 98 Oximetry - Labs CBC & Chem 7: 05/05/22 05:00 05/05/22 04:00 Labs: Abnormal lab results 05/05/22 Range/Units 11:43 POC Glucose 67 L (70-105) mg/dL Medications & Allergies - Medications Allergies/Adverse Reactions: Allergies No Known Allergies Allergy (Verified 05/01/22 12:55) Home Medications: Home Medications Medication Instructions Recorded Confirmed Last Taken Type No Known Home Medications [No 05/02/22 05/02/22 Unknown History Reported Home Medications] Active Medications: Generic Name Dose Route Start Last Admin Trade Name Freq PRN Reason Stop Dose Admin Acetaminophen 650 mg 05/05/22 16:42 05/05/22 17:04 Acetaminophen 325 Mg Tab PO 650 mg Q4H PRN Administration Non Cardiac Pain or Temp>100.5 Al Hydrox/Mg Hydrox/Simethicone 15 ml 05/05/22 09:49 Alum-Mag Hydroxide-Simethicone [id number]/5ml Oral Liqd 30 Ml PO Q4H PRN Indigestion Ascorbic Acid 500 mg 05/03/22 12:00 05/06/22 11:19 Ascorbic Acid 500 Mg Tab PO 500 mg BID ALEX Administration Aspirin 81 mg 05/07/22 10:00 Aspirin 81 Mg Tab Chew PO QDAY [facility] Atorvastatin Calcium 20 mg 05/06/22 22:00 Atorvastatin 20 Mg Tab PO QHS [facility] Benzocaine/Menthol 1 each 05/02/22 11:00 05/03/22 22:08 Benzocaine/Menthol Lozenge MM 1 each Q2H PRN Administration Sore Throat Carvedilol 6.25 mg 05/04/22 11:00 05/06/22 11:18 Carvedilol 6.25 Mg Tab PO Not Given BID [facility] Dextrose 25 ml 05/05/22 12:18 05/06/22 06:23 Dextrose 50% In Water (25gm) 50 Ml Syringe IV 25 ml Q30MIN PRN Administration Hypoglycemia Protocol Midodrine 10 mg 05/03/22 12:00 05/06/22 11:19 Midodrine 10 Mg Tab PO 10 mg TID@0800,1200,1600 ALEX Administration Ondansetron HCl 4 mg 05/04/22 09:29 05/05/22 16:21 Ondansetron 4 Mg/2 Ml Inj IV 4 mg Q4H PRN Administration Nausea And Vomiting Oxycodone/Acetaminophen 1 tab 05/01/22 20:29 Oxycodone /Acetaminophen 5-325mg Tab PO Q6H PRN Pain, Moderate (4-6) Simethicone 80 mg 05/03/22 20:00 05/03/22 20:40 Simethicone 80 Mg Chew Tab PO 80 mg Q6H PRN Administration Gas pain Sodium Chloride 10 ml 05/01/22 22:00 05/06/22 11:19 Sodium Chloride 0.9% 10 Ml Flush Syringe IV 10 ml BID ALEX Administration Sodium Chloride 10 ml 05/01/22 20:29 05/04/22 09:35 Sodium Chloride 0.9% 10 Ml Flush Syringe IV 10 ml PRN PRN Administration LINE FLUSH Zinc Sulfate 220 mg 05/03/22 22:00 05/06/22 11:18 Zinc Sulfate 220 Mg Cap PO 220 mg BID ALEX Administration
--- NOTE | 2022-05-06 16:10 | Consultation ---
History of Present Illness Consult date: 05/06/22 Requesting physician: ADRIAN MART Consult reason: congestive heart failure History of present illness: Patient 76-year-old male with a past medical history of HFrEF s/p AICD, CKD, diabetes, legally blind, history of CVA who presented to the ED on 05/01/2022 with complaint of weakness x1 day pro to admission. Patient reports prior to his weakness he was in her normal state of health. In the ED patient was found to be hypotensive with systolic blood pressure in the 80s. Throughout hospital course patient was found to have GERALDINE with ATN, metabolic acidosis and volume overload. Furthermore patient developed leukocytosis. Of note patient reports that he receives his medical care from [facility] and states that since the pandemic began he has not seen any providers and has not been taking his medications at this time. Patient does report that prior to pandemic he believes his EF was around 30%. Patient also reports that he has had cardiac cath and stress test previously but reports he has never had any stents placed. At time of interview patient reports chills and continues to feel weak. He has no cardiac complaints including no shortness of breath, chest pain, palpitations, shortness of breath. Past History Past Medical History: diabetes, heart failure, renal failure, other (See HPI, otherwise unable obtain) Past Surgical History: Other (Reports spinal surgery) Social history: . denies: smoking, alcohol abuse, prescription drug abuse Family history: diabetes Medications and Allergies Allergies Allergy/AdvReac Type Severity Reaction Status Date / Time No Known Allergies Allergy Verified 05/01/22 12:55 Home Medications Medication Instructions Recorded Confirmed Last Taken Type No Known Home Medications [No 05/02/22 05/02/22 Unknown History Reported Home Medications] Active Meds: Active Medications Acetaminophen (Acetaminophen 325 Mg Tab) 650 mg PO Q4H PRN PRN Reason: Non Cardiac Pain or Temp>100.5 Last Admin: 05/05/22 17:04 Dose: 650 mg Al Hydrox/Mg Hydrox/Simethicone (Alum-Mag Hydroxide-Simethicone [id number]/5ml Oral Liqd 30 Ml) 15 ml PO Q4H PRN PRN Reason: Indigestion Ascorbic Acid (Ascorbic Acid 500 Mg Tab) 500 mg PO BID ALEX Last Admin: 05/06/22 11:19 Dose: 500 mg Aspirin (Aspirin 81 Mg Tab Chew) 81 mg PO QDAY [facility] Atorvastatin Calcium (Atorvastatin 20 Mg Tab) 20 mg PO QHS [facility] Benzocaine/Menthol (Benzocaine/Menthol Lozenge) 1 each MM Q2H PRN PRN Reason: Sore Throat Last Admin: 05/03/22 22:08 Dose: 1 each Carvedilol (Carvedilol 6.25 Mg Tab) 6.25 mg PO BID [facility] Last Admin: 05/06/22 11:18 Dose: Not Given Dextrose (Dextrose 50% In Water (25gm) 50 Ml Syringe) 25 ml IV Q30MIN PRN; Protocol PRN Reason: Hypoglycemia Last Admin: 05/06/22 06:23 Dose: 25 ml Midodrine (Midodrine 10 Mg Tab) 10 mg PO TID@0800,1200,1600 [facility] Last Admin: 05/06/22 11:19 Dose: 10 mg Ondansetron HCl (Ondansetron 4 Mg/2 Ml Inj) 4 mg IV Q4H PRN PRN Reason: Nausea And Vomiting Last Admin: 05/05/22 16:21 Dose: 4 mg Oxycodone/Acetaminophen (Oxycodone /Acetaminophen 5-325mg Tab) 1 tab PO Q6H PRN PRN Reason: Pain, Moderate (4-6) Simethicone (Simethicone 80 Mg Chew Tab) 80 mg PO Q6H PRN PRN Reason: Gas pain Last Admin: 05/03/22 20:40 Dose: 80 mg Sodium Chloride (Sodium Chloride 0.9% 10 Ml Flush Syringe) 10 ml IV BID [facility] Last Admin: 05/06/22 11:19 Dose: 10 ml Sodium Chloride (Sodium Chloride 0.9% 10 Ml Flush Syringe) 10 ml IV PRN PRN PRN Reason: LINE FLUSH Last Admin: 05/04/22 09:35 Dose: 10 ml Zinc Sulfate (Zinc Sulfate 220 Mg Cap) 220 mg PO BID [facility] Last Admin: 05/06/22 11:18 Dose: 220 mg Review of Systems Constitutional: fever, chills, weakness, malaise, no weight loss, no weight gain Ears, nose, mouth and throat: no sinus pressure, no sinus pain Cardiovascular: edema (chronic BLE), no chest pain, no orthopnea, no palpitations, no shortness of breath, no dyspnea on exertion Respiratory: no shortness of breath, no dyspnea on exertion Gastrointestinal: no abdominal pain, no nausea, no vomiting Musculoskeletal: low back pain Integumentary: no rash, no pruritis, no redness Neurological: weakness, no head injury, no transient paralysis, no paralysis Psychiatric: no anxiety, no memory loss Endocrine: no cold intolerance, no heat intolerance Physical Examination Vital Signs Temp Pulse Resp BP Pulse Ox 98.7 F 110 H 18 84/63 98 05/01/22 12:52 05/01/22 12:52 05/01/22 12:52 05/01/22 12:52 05/01/22 12:52 General appearance: no acute distress HEENT: Positive: Mucus Membranes Dry Neck: Positive: trachea midline Cardiac: Positive: Reg Rate and Rhythm Lungs: Positive: Normal Breath Sounds Neuro: Positive: Grossly Intact Abdomen: Positive: Soft Skin: Negative: Rash Extremities: Present: edema (Chronin BLE, Edemaon BUE) Results 05/05/22 05:00 05/05/22 04:00 - Imaging and Cardiology Echo: report reviewed EKG: report reviewed, image reviewed EKG interpretations - Telemetry EKG Rhythm: Sinus Tachycardia - EKG Sinus rhythms and dysrhythmias: sinus tachycardia AV and intraventricular conduction: left anterior fascicular Assessment and Plan Patient 76-year-old male with a past medical history of HFrEF s/p AICD, CKD, diabetes, legally blind, history of CVA who presented to the ED on 05/01/2022 with complaint of weakness x 1 day prior to admission Weakness Sepsis Acute on chronic HFrEF GERALDINE on CKD with ATN Legally blind History of CVA Metabolic acidosis AICD in situ Echo 05/02/2022-EF 20%. Mild concentric LVH. Right ventricle systolic function is normal. Moderate mitral regurgitation. Mild tricuspid regurgitation. Trace aortic regurgitation. Moderate left pleural effusion. Plan: EKG on admission shows sinus tach 112 left anterior fascicular block no acute ischemic changes patient denies any complaints of chest pain BNP noted to be elevated on admission patient appears near euvolemic on exam Agree with aspirin and statin Patient has soft blood pressures requiring midodrine. Possible hypotension due to sepsis. Blood cultures pending Telemetry reviewed patient sinus to sinus tach with PVCs on monitor. Agree with low-dose beta-mikie at this time with close monitoring of BPs. No KRIS or ARB due to renal function and hypotension. Primary team may wish to consult nephrology due to renal function Patient seen in conjunction with Dr. Patterson who agrees with this plan of care
[2022-05-06] MEDS: cefTRIAXone/NS 1 GM/50 ML 1 GM/50 ML BAG IV SCH (16:27)
[2022-05-06] MEDS: ONDANSETRON 4 MG/2 ML INJ IV PRN (16:32)
[2022-05-06] MEDS ORDERED: ALBUTEROL 2.5 MG/3 ML NEBU IH SCH (20:00)
[2022-05-06] MEDS: ACETAMINOPHEN 325 MG TAB PO PRN (21:58)
[2022-05-07 00:16] LABS: Hematocrit 22.2 % (35.5-45.6); Hemoglobin 7.6 gm/dl (11.8-15.2); Mean Corpuscular HGB Conc 34 % (32-34); Mean Corpuscular Volume 96 fl (84-94); Platelet Count 129 K/mm3 (140-440); Red Blood Count 2.31 M/mm3 (3.65-5.03); Red Cell Distribution Width 15.6 % (13.2-15.2)
[2022-05-07 00:33] LABS: Calcium 6.6 mg/dL (8.4-10.2)
[2022-05-07] MEDS: DEXTROSE 50% IN WATER (25GM) 50 ML SYRINGE IV PRN (01:37)
[2022-05-07] MEDS: DEXTROSE 10% IN WATER 1,000 ML IV SCH ×2 (01:37→14:35)
[2022-05-07] MEDS: BENZOCAINE/MENTHOL LOZENGE MM PRN (08:20)
[2022-05-07] MEDS: ASCORBIC ACID 500 MG TAB PO SCH ×2 (09:03→21:14)
[2022-05-07] MEDS: carvediloL 6.25 MG TAB PO SCH ×2 (09:03→21:14)
[2022-05-07] MEDS: ZINC SULFATE 220 MG CAP PO SCH ×2 (09:03→21:14)
[2022-05-07] MEDS: ASPIRIN 81 MG TAB CHEW PO SCH (09:03)
[2022-05-07] MEDS: MIDODRINE 10 MG TAB PO SCH ×3 (09:03→17:14)
--- NOTE | 2022-05-07 09:23 | Progress Note ---
Assessment and Plan Assessment and plan: History Interval history: This is a 76-year-old male with OHS, CVA x2, legally blind, CHF with AICD in situ, CKD (? Stage IV) not on hemodialysis and DM who presented to the em ergency department on 05/01 via EMS with complaints of feeling weak over the past couple days. Upon EMS arrival patient was found to be hypotensive SBP in the 50s and was subsequently placed on IV fluid and transported to [facility]. In the emergency department patient was found to have a systolic blood pressure in the 80s, GERALDINE with ATN, metabolic acidosis as well as fluid overload. Patient was admitted to [facility] initially but later required the use of vasopressors and was upgraded to ICU. Patient was admitted to the hospitalist service with r/o sepsis, GERALDINE with ATN, metabolic acidosis,, toxic metabolic encephalopathy, fluid overload with consults to [facility]. Hospital course to date: 05/02: Patient Levophed weaned, added midodrine. Per CCM he received additional 4 L LR bolus. 05/03: Started on zinc, Micah and vitamin C per nutrition, started on dobutamine. Wean Levophed as tolerated. Echocardiogram pending. 05/04: Remains on dobutamine drip in the morning but was discontinued later. Now started on Coreg twice daily. We will continue to monitor in the ICU and po ssible transfer to floor tomorrow. 05/05: We will consult cardiology given reduction in EF. Patient will be transferred to [facility]. We will continue Coreg. No acute events reported overnight. CXR and UA obtained due to low-grade fever. CXR unremarkable. 05/06: Will add coreg 3.125. hold off on rashid given renal fx. Cardiology is consulted re: HFrEF medical management. Complaining of chills. CXR and UA reviewed. CXR shows mild interstitial markings. UA shows mildly elevated urine wbc cells. denies any urinary symptoms but feels chills and documented temp of 100F. WBC ct on 05/05 was 20.1K after being 8.9K on 05/01. Will order Rocephin IV. Was treated with vancomycin x 1 on 05/05 and recultured. COVID 19 test ordered. AM labs ordered. Otherwise medically stable for transfer to [facility]. 05/07: WBC count downtrending. Plan for patient discharge tomorrow. He will go home with home health care PT. Discharge planning conducted with CM this AM. Patient has telemetry bed orders. Assessment and plan: This is a 76-year-old male with OHS, CVA x2, CHF and AICD in situ, CKD admitted with GERALDINE, metabolic acidosis, toxic metabolic encephalopathy, fluid overload Neuro: Acute metabolic encephalopathy (resolved), h/o CVA x2, legally blind -Reorientation as needed -Maintain sleep-wake cycle -As needed analgesia Cardiac: acute HFrEF with AICD in situ, Hypotension, lactic acidosis, -Blood pressure monitoring per protocol -Vasopressor support with vasopressin -MAP goal greater than 65 -Midodrine p.o. -Echocardiogram showed shows severe global hypokinesis of left ventricle, LVEF 20%, trace pericardial effusion, moderate left pleural effusion -s/p Dobutamine gtt -Coreg -proBNP 08476 -S/p 3500 mL normal saline in the ED -S/p 4 L LR in the ICU Respiratory: NAD -CCM consulted, appreciate recommendations -Pulmonary hygiene -SPO2 monitoring -Supplemental oxygen as needed GI: Severe protein calorie malnutrition -Cardiac cc diet -PPI -CT abdomen/pelvis without contrast shows no abnormality noted within the abdomen or pelvis, moderate amount of calcified plaque seen throughout the abdominal aorta and common iliac arteries with out associated aneurysm, no GI abnormality other than simple sigmoid diverticulosis : Acute on chronic kidney disease -Monitor intake and output -Renally dose medications -Avoid nephrotoxic medications -Will not replete hypokalemia in setting of BUN/creatinine of 3.4/36 -Trend BMP ID: Sepsis POA, Chronic lymphedema, possible urinary tract infection -Presented with tachycardia, hypotension, acute kidney injury, leukocytosis....source potentially urinary. -f/u blood culture- NGTD. -WOCN consulted -Monitor WBC and temperature curve - Rocephin IV x 3-5 days for UTI. Endo: Type 2 diabetes -Avoid hypoglycemia -SSI -Accu-Cheks q. ACH S Heme: Leukocytosis, thrombocytopenia -Trend CBC -Transfuse hemoglobin less than 7 -SCDs to BLE while in bed #Advance care planning Disease education conducted, care plan discussed, diagnoses discussed, prognosis discussed, patient is full code, patient acknowledges understanding and agree wi th care plan, +30 minutes. Time spent: +35 min CPT 35510 History Interval history: No acute complaints this morning. Patient denies any fevers, BROWN, nausea, vomiting. Did not eat much of food tray but states he does not like the hospital food. Hospitalist Physical - Physical exam Narrative exam: Physical Exam: VITAL SIGNS: Reviewed. GENERAL: The patient appears normally developed, Vital signs as documented. HEAD: No signs of head trauma. EYES: Pupils are equal. Extraocular motions intact. EARS: Hearing grossly intact. MOUTH: Oropharynx is normal. NECK: No adenopathy, no JVD. CHEST: Chest with clear breath sounds bilaterally. No wheezes, rales, or rhonchi. CARDIAC: Regular rate and rhythm. S1 and S2, without murmurs, gallops, or rubs. VASCULAR: No Edema. Peripheral pulses normal and equal in all extremities. ABDOMEN: Soft, non tender and non distended. No rebound or guarding, and no masses palpated. Bowel Sounds normal. MUSCULOSKELETAL: Good range of motion of all major joints. Extremities without clubbing, cyanosis or edema. NEUROLOGIC EXAM: Alert and oriented x 4. no focal sensory or strength deficits. PSYCHIATRIC: Mood normal. SKIN: detail exam as documented in skin assessment - Constitutional Vitals: Temp Pulse Resp BP Pulse Ox 97.6 F 81 13 108/60 99 05/07/22 08:21 05/07/22 09:03 05/07/22 09:00 05/07/22 09:03 05/07/22 09:00 General appearance: Present: no acute distress Results - Labs CBC & Chem 7: 05/06/22 23:31 05/06/22 23:31 Labs: Laboratory Last Values WBC 15.7 K/mm3 (4.5-11.0) H 05/06/22 23:31 RBC 2.31 M/mm3 (3.65-5.03) L 05/06/22 23:31 Hgb 7.6 gm/dl (11.8-15.2) L 05/06/22 23:31 Hct 22.2 % (35.5-45.6) L 05/06/22 23:31 MCV 96 fl (84-94) H 05/06/22 23:31 MCH 33 pg (28-32) H 05/06/22 23:31 MCHC 34 % (32-34) 05/06/22 23:31 RDW 15.6 % (13.2-15.2) H 05/06/22 23:31 Plt Count 129 K/mm3 (140-440) L 05/06/22 23:31 Lymph % (Auto) 7.6 % (13.4-35.0) L 05/02/22 05:09 [place] % (Auto) 3.9 % (0.0-7.3) 05/02/22 05:09 Eos % (Auto) 0.0 % (0.0-4.3) 05/02/22 05:09 Baso % (Auto) 0.5 % (0.0-1.8) 05/02/22 05:09 Lymph # (Auto) 1.3 K/mm3 (1.2-5.4) 05/02/22 05:09 [place] # (Auto) 0.7 K/mm3 (0.0-0.8) 05/02/22 05:09 Eos # (Auto) 0.0 K/mm3 (0.0-0.4) 05/02/22 05:09 Baso # (Auto) 0.1 K/mm3 (0.0-0.1) 05/02/22 05:09 Add Manual Diff Complete 05/01/22 17:36 Total Counted 100 05/01/22 17:36 Seg Neutrophils % 88.0 % (40.0-70.0) H 05/02/22 05:09 Seg Neuts % (Manual) 86.0 % (40.0-70.0) H 05/01/22 17:36 Band Neutrophils % 12.0 % 05/01/22 17:36 Lymphocytes % (Manual) 1.0 % (13.4-35.0) L 05/01/22 17:36 Reactive Lymphs % (Man) 0 % 05/01/22 17:36 Monocytes % (Manual) 0 % (0.0-7.3) 05/01/22 17:36 Eosinophils % (Manual) 0 % (0.0-4.3) 05/01/22 17:36 Basophils % (Manual) 0 % (0.0-1.8) 05/01/22 17:36 Metamyelocytes % 1.0 % 05/01/22 17:36 Myelocytes % 0 % 05/01/22 17:36 Promyelocytes % 0 % 05/01/22 17:36 Blast Cells % 0 % 05/01/22 17:36 Nucleated RBC % Not Reportable 05/01/22 17:36 Seg Neutrophils # 15.2 K/mm3 (1.8-7.7) H 05/02/22 05:09 Seg Neutrophils # Man 7.7 K/mm3 (1.8-7.7) 05/01/22 17:36 Band Neutrophils # 1.1 K/mm3 05/01/22 17:36 Lymphocytes # (Manual) 0.1 K/mm3 (1.2-5.4) L 05/01/22 17:36 Abs React Lymphs (Man) 0.0 K/mm3 05/01/22 17:36 Monocytes # (Manual) 0.0 K/mm3 (0.0-0.8) 05/01/22 17:36 Eosinophils # (Manual) 0.0 K/mm3 (0.0-0.4) 05/01/22 17:36 Basophils # (Manual) 0.0 K/mm3 (0.0-0.1) 05/01/22 17:36 Metamyelocytes # 0.1 K/mm3 05/01/22 17:36 Myelocytes # 0.0 K/mm3 05/01/22 17:36 Promyelocytes # 0.0 K/mm3 05/01/22 17:36 Blast Cells # 0.0 K/mm3 05/01/22 17:36 WBC Morphology Not Reportable 05/01/22 17:36 Hypersegmented Neuts Not Reportable 05/01/22 17:36 Hyposegmented Neuts Not Reportable 05/01/22 17:36 Hypogranular Neuts Not Reportable 05/01/22 17:36 Smudge Cells Not Reportable 05/01/22 17:36 Toxic Granulation Not Reportable 05/01/22 17:36 Toxic Vacuolation Not Reportable 05/01/22 17:36 Dohle Bodies Not Reportable 05/01/22 17:36 Pelger-Huet Anomaly Not Reportable 05/01/22 17:36 Arnold Rods Not Reportable 05/01/22 17:36 Platelet Estimate Consistent w auto 05/01/22 17:36 Clumped Platelets Not Reportable 05/01/22 17:36 Plt Clumps, EDTA Not Reportable 05/01/22 17:36 Large Platelets Not Reportable 05/01/22 17:36 Giant Platelets Not Reportable 05/01/22 17:36 Platelet Satelliting Not Reportable 05/01/22 17:36 Plt Morphology Comment Not Reportable 05/01/22 17:36 RBC Morphology Not Reportable 05/01/22 17:36 Dimorphic RBCs Not Reportable 05/01/22 17:36 Polychromasia Not Reportable 05/01/22 17:36 Hypochromasia Few 05/01/22 17:36 Poikilocytosis Not Reportable 05/01/22 17:36 Anisocytosis Not Reportable 05/01/22 17:36 Microcytosis Not Reportable 05/01/22 17:36 Macrocytosis Not Reportable 05/01/22 17:36 Spherocytes Not Reportable 05/01/22 17:36 Pappenheimer Bodies Not Reportable 05/01/22 17:36 Sickle Cells Not Reportable 05/01/22 17:36 Target Cells Not Reportable 05/01/22 17:36 Tear Drop Cells Not Reportable 05/01/22 17:36 Ovalocytes Not Reportable 05/01/22 17:36 Helmet Cells Not Reportable 05/01/22 17:36 Vizcarra-Ezel Bodies Not Reportable 05/01/22 17:36 [place] Rings Not Reportable 05/01/22 17:36 [place] Cells Not Reportable 05/01/22 17:36 Bite Cells Not Reportable 05/01/22 17:36 Crenated Cell Not Reportable 05/01/22 17:36 Elliptocytes Not Reportable 05/01/22 17:36 Acanthocytes (Spur) Not Reportable 05/01/22 17:36 Rouleaux Not Reportable 05/01/22 17:36 Hemoglobin C Crystals Not Reportable 05/01/22 17:36 Schistocytes Not Reportable 05/01/22 17:36 Malaria parasites Not Reportable 05/01/22 17:36 ESR 43 mm/Hr (0-20) 05/02/22 05:09 Harpreet Bodies Not Reportable 05/01/22 17:36 Hem Pathologist Commnt No 05/01/22 17:36 Sodium 134 mmol/L (137-145) L 05/06/22 23:31 Potassium 3.5 mmol/L (3.6-5.0) L 05/06/22 23:31 Chloride 97.1 mmol/L (98-107) L 05/06/22 23:31 Carbon Dioxide 24 mmol/L (22-30) 05/06/22 23:31 Anion Gap 16 mmol/L 05/06/22 23:31 BUN 40 mg/dL (9-20) H 05/06/22 23:31 Creatinine 3.1 mg/dL (0.8-1.3) H 05/06/22 23:31 Estimated GFR 25 ml/min 05/06/22 23:31 BUN/Creatinine Ratio 13 % 05/06/22 23:31 Glucose 47 mg/dL (75-100) L 05/06/22 23:31 POC Glucose 107 mg/dL (70-105) H 05/07/22 08:05 Lactic Acid 5.80 mmol/L (0.7-2.0) H* 05/04/22 09:09 Calcium 6.6 mg/dL (8.4-10.2) L 05/06/22 23:31 Phosphorus 2.80 mg/dL (2.5-4.5) 05/05/22 04:00 Magnesium 1.90 mg/dL (1.7-2.3) 05/05/22 04:00 Total Bilirubin 0.30 mg/dL (0.1-1.2) 05/02/22 05:09 AST 18 units/L (5-40) 05/02/22 05:09 ALT 7 units/L (7-56) 05/02/22 05:09 Alkaline Phosphatase 113 units/L (35-129) 05/02/22 05:09 C-Reactive Protein 16.10 mg/dL (0.00-1.30) H 05/01/22 22:57 NT-Pro-B Natriuret Pep 37358 pg/mL (0-900) H 05/01/22 22:57 Total Protein 6.0 g/dL (6.3-8.2) L D 05/02/22 05:09 Albumin 1.6 g/dL (3.9-5) L 05/02/22 05:09 Albumin/Globulin Ratio 0.4 % 05/02/22 05:09 TSH 0.918 mlU/mL (0.270-4.200) 05/01/22 22:57 Free T4 0.96 ng/dL (0.76-1.46) 05/01/22 22:57 Urine Color Anuradha (Yellow) 05/05/22 09:45 Urine Turbidity Slightly cloudy (Clear) 05/05/22 09:45 Urine pH 5.0 (5.0-7.0) 05/05/22 09:45 Ur Specific Honor 1.015 (1.003-1.030) 05/05/22 09:45 Specific Honor (Man) 1.015 (1.003-1.030) 05/02/22 01:24 Urine Protein 30 mg/dl mg/dL (Negative) 05/05/22 09:45 Ur Protein (Man) <30 mg dl mg/dL (Negative) 05/02/22 01:24 Urine Glucose (UA) Negative mg/dL (Negative) 05/05/22 09:45 Urine Ketones Trace mg/dL (Negative) 05/05/22 09:45 Ur Ketones (Man) Negative (Negative) 05/02/22 01:24 Urine Blood Negative (Negative) 05/05/22 09:45 Urine Nitrite Negative (Negative) 05/05/22 09:45 Ur Nitrite (Man) Negative (Negative) 05/02/22 01:24 Ur Reducing Substances Not Reportable 05/05/22 09:45 Urine Bilirubin Negative (Negative) 05/05/22 09:45 Urine Bilirubin (Man) Negative (Negative) 05/02/22 01:24 Urine Ictotest Not Reportable 05/05/22 09:45 Urine Urobilinogen Small mg/dL (<2.0) 05/05/22 09:45 Ur Leukocyte Esterase Small (Negative) 05/05/22 09:45 Leukocyte Esterase (Man) Negative (Negative) 05/02/22 01:24 Urine WBC (Auto) 7.0 /HPF (0.0-6.0) H 05/05/22 09:45 Urine RBC (Auto) < 1.0 /HPF (0.0-6.0) 05/05/22 09:45 U Epithel Cells (Auto) 2.0 /HPF (0-13.0) 05/05/22 09:45 Urine Bacteria (Auto) 1+ /HPF (Negative) 05/05/22 09:45 Urine RBC (Manual) Negative (Negative) 05/02/22 01:24 Amorphous Crystals Few 05/05/22 09:45 Hyaline Casts 1 /LPF 05/05/22 09:45 Ur Yeast w Hyphae Few /HPF 05/05/22 09:45 Urine Yeast (Budding) 3+ /HPF 05/05/22 09:45 Blood Type O POSITIVE 05/01/22 22:57 Antibody Screen Negative 05/01/22 22:57 Microbiology: Microbiology 05/05/22 18:35 Peripheral/Venous Blood Culture - Preliminary NO GROWTH AFTER 24 HOURS 05/05/22 18:35 Peripheral/Venous Blood Culture - Preliminary NO GROWTH AFTER 24 HOURS 05/01/22 17:36 Peripheral/Venous Blood Culture - Final NO GROWTH AFTER 5 DAYS 05/01/22 17:36 Peripheral/Venous Blood Culture - Final NO GROWTH AFTER 5 DAYS Venegas/IV: Voiding Method Condom Catheter Active Medications - Current Medications Current Medications: Generic Name Dose Route Start Last Admin Trade Name Freq PRN Reason Stop Dose Admin Acetaminophen 650 mg 05/05/22 16:42 05/06/22 21:58 Acetaminophen 325 Mg Tab PO 650 mg Q4H PRN Administration Non Cardiac Pain or Temp>100.5 Al Hydrox/Mg Hydrox/Simethicone 15 ml 05/05/22 09:49 Alum-Mag Hydroxide-Simethicone [id number]/5ml Oral Liqd 30 Ml PO Q4H PRN Indigestion Ascorbic Acid 500 mg 05/03/22 12:00 05/07/22 09:03 Ascorbic Acid 500 Mg Tab PO 500 mg BID ALEX Administration Aspirin 81 mg 05/07/22 10:00 05/07/22 09:03 Aspirin 81 Mg Tab Chew PO 81 mg QDAY ALEX Administration Atorvastatin Calcium 20 mg 05/06/22 22:00 05/06/22 21:51 Atorvastatin 20 Mg Tab PO 20 mg QHS ALEX Administration Benzocaine/Menthol 1 each 05/02/22 11:00 05/07/22 08:20 Benzocaine/Menthol Lozenge MM 1 each Q2H PRN Administration Sore Throat Carvedilol 6.25 mg 05/04/22 11:00 05/07/22 09:03 Carvedilol 6.25 Mg Tab PO Not Given BID ALEX Dextrose 25 ml 05/05/22 12:18 05/07/22 01:37 Dextrose 50% In Water (25gm) 50 Ml Syringe IV 25 ml Q30MIN PRN Administration Hypoglycemia Protocol Ceftriaxone Sodium 1 gm in 50 mls @ 100 mls/hr 05/06/22 17:00 05/06/22 16:27 Rocephin/Ns 1 Gm/50 Ml IV 100 mls/hr Q24H ALEX Administration Protocol Dextrose 1,000 mls @ 75 mls/hr 05/07/22 02:00 05/07/22 01:37 D10w IV 75 mls/hr DIRECT ALEX Administration Midodrine 10 mg 05/03/22 12:00 05/07/22 09:03 Midodrine 10 Mg Tab PO 10 mg TID@0800,1200,1600 ALEX Administration Ondansetron HCl 4 mg 05/04/22 09:29 05/06/22 16:32 Ondansetron 4 Mg/2 Ml Inj IV 4 mg Q4H PRN Administration Nausea And Vomiting Oxycodone/Acetaminophen 1 tab 05/01/22 20:29 05/06/22 17:17 Oxycodone /Acetaminophen 5-325mg Tab PO 1 tab Q6H PRN Administration Pain, Moderate (4-6) Potassium Chloride 40 meq 05/07/22 10:00 Potassium Chloride Er 20 Meq Tab PO QDAY ALEX Simethicone 80 mg 05/03/22 20:00 05/03/22 20:40 Simethicone 80 Mg Chew Tab PO 80 mg Q6H PRN Administration Gas pain Sodium Chloride 10 ml 05/01/22 22:00 05/07/22 09:03 Sodium Chloride 0.9% 10 Ml Flush Syringe IV 10 ml BID ALEX Administration Sodium Chloride 10 ml 05/01/22 20:29 05/04/22 09:35 Sodium Chloride 0.9% 10 Ml Flush Syringe IV 10 ml PRN PRN Administration LINE FLUSH Zinc Sulfate 220 mg 05/03/22 22:00 05/07/22 09:03 Zinc Sulfate 220 Mg Cap PO 220 mg BID ALEX Administration Nutrition/Malnutrition Assess - Dietary Evaluation Nutrition/Malnutrition Findings: Nutrition Notes Start: 05/03/22 13:40 Freq: Status: Active Protocol: Document 05/03/22 13:40 CM (Rec: 05/03/22 14:02 CM [id number]) Co-Sign 05/03/22 13:40 WW Nutrition Notes Need for Assessment generated from: [email or web address],MST Initial or Follow up Assessment Current Diagnosis Acute Kidney Injury,CKD(stage I-IV),Diabetes,Stroke Other Pertinent Diagnosis SIRS, metabolic acidosis, OHS, fluid overload Current Diet Consistent Carbohydrate Labs/Tests 05/03: Na 136 K 3.5 Cl 97.2 BUN 33 Cr 3.1 Pertinent Medications 05/03: Vitamin C Norepinephrine Zinc Sulfate Height 5 ft 7 in Weight 117.934 kg Usual Body Weight 113.1 kg [place] Body Weight (kg) 67.27 BMI 40.7 Intake Prior to Admission Good Weight change and time frame Unsure wt loss [employer] per malnutrition screening tool assessment. Pt reported UBW of 249lb and wt loss of ~90lb beginning in June 2021 d/t unspecified illness. Pt currently ~9lb greater than UBW at this time - BLE edema noted at time of visit (May be masking weight loss). Weight Status Obese Subjective/Other Information RD consult for malnutrition screening score 2 and skin risk assessment. Nutrition focused physical assessment performed indicating moderate muscle wasting and subcutaneous fat loss - indicative of moderate malnutrition in setting of chronic disease. Pt reported decreased appetite since June 2021, but denied N/V, abdominal pain, or difficulty chewing/swallowing . No %PO intake at this time. Stage III (R Heel) / Stage II (Sacrum) Pressure ulcers and dry/flaky skin breakdown of LE . Recommended Zinc Sulfate, Vitamin C, and Micah BID administration. Burn Absent Trauma Absent GI Symptoms None Food Allergy No Skin Integrity/Comment Dry, flaking, breakdown, III Ulcer Minimum of two criteria Yes Body Fat Depletion Moderate depletion (severe) Muscle Mass Moderate Depletion (severe) #2 Nutrition Diagnosis Altered nutrition-related laboratory values Etiology GERALDINE on CKD As Evidenced by Signs and Symptoms BUN 33 / Cr 3.1 / Na 136 #1 Nutrition Diagnosis Malnutrition Comments: Moderate in setting of chronic disease. Etiology Decreased appetite ~10mo As Evidenced by Signs and Symptoms Pt report of decreased appetite over ~10mo, moderate muscle wasting (temples, acromion) / subcutaneous fat loss (triceps). Is patient on ventilator? No Is Patient Ambulatory and/or Out of Bed No REE-([facility]-confined to bed) [phone] Calculation Used for Recommendations [facility] Additional Notes Protein: 0.9-1.2g/kg AdjBW; 83 -111g PRO q day Fluid: 500mL + total output or per team Nutrition Intervention Change Diet Order: Recommend changing diet to renal diet if blood glucose is WNL. Add Supplement/Snack (indicate name/kcal Micah BID /protein ) Provides kCal: 180 Goal #1 Pt to consume >75% of estimated energy/protein needs through current diet order Goal #2 Normalize nutrition-related labs through diet modification Additional Comments Monitor %PO intake, nutrition- related lab values, wt status, and integumentary system
[2022-05-07] MEDS: POTASSIUM CHLORIDE ER 20 MEQ TAB PO SCH (09:48)
[2022-05-07] MEDS: ONDANSETRON 4 MG/2 ML INJ IV PRN (12:43)
--- NOTE | 2022-05-07 13:09 | Progress Note ---
Assessment and Plan Patient 76-year-old male with a past medical history of HFrEF s/p AICD, CKD, diabetes, legally blind, history of CVA who presented to the ED on 05/01/2022 with complaint of weakness x 1 day prior to admission Heart failure with reduced ejection fraction in setting of cardiomyopathy of unknown etiology s/p AICD implantation * Echo 05/02/2022-EF 20%. Mild concentric LVH. Right ventricle systolic function is normal. Moderate mitral regurgitation. Mild tricuspid regurgitation. Trace aortic regurgitation. Moderate left pleural effusion. * GDMT as tolerated. Continue ASA, statin, Coreg. No KRIS/ARB in setting of GERALDINE. * No diuresis at this point in setting of sepsis with hypotension and GERALDINE. Sepsis * Per primary team GERALDINE on CKD with ATN * per primary team DVT prophylaxis in setting of anemia * Patient is currently on no DVT prophylaxis in setting of severe anemia hemoglobin 7.6. Management per primary team Currently stable cardiac status. We will follow Patient seen in conjunction with Dr. Patterson who agrees with this plan of care - Patient Problems (1) Heart failure with reduced ejection fraction Current Visit: Yes Status: Acute (2) Cardiomyopathy Current Visit: Yes Status: Acute (3) Weakness Current Visit: Yes Status: Acute (4) Lymphedema Current Visit: Yes Status: Acute (5) GERALDINE (acute kidney injury) Current Visit: Yes Status: Acute (6) DVT prophylaxis Current Visit: Yes Status: Acute (7) Sepsis Current Visit: Yes Status: Acute (8) Diabetes Current Visit: Yes Status: Acute (9) Legally blind Current Visit: Yes Status: Acute (10) History of CVA (cerebrovascular accident) Current Visit: Yes Status: Acute Subjective Date of service: 05/07/22 Principal diagnosis: Sepsis Interval history: Patient resting comfortably in bed no shortness of breath or chest pain overnight Telemetry shows sinus rhythm heart rate 78 with frequent PVCs and one 5 beat episode of V. tach. Objective Last Vital Signs Temp 97.7 F 05/07/22 12:29 Pulse 76 05/07/22 12:10 Resp 11 L 05/07/22 12:00 BP 101/53 05/07/22 12:00 Pulse Ox 100 05/07/22 12:00 - Physical Examination General: No Apparent Distress HEENT: Positive: Mucus Membranes Dry Neck: Positive: trachea midline Cardiac: Positive: Reg Rate and Rhythm Lungs: Positive: Normal Exam Neuro: Positive: Grossly Intact Abdomen: Positive: Soft Skin: Negative: Rash Extremities: Present: edema (Chronic bilateral lower extremity edema, 2+ bilateral upper extremity edema) - Labs and Meds CBC 05/06/22 Range/Units 23:31 WBC 15.7 H (4.5-11.0) K/mm3 RBC 2.31 L (3.65-5.03) M/mm3 Hgb 7.6 L (11.8-15.2) gm/dl Hct 22.2 L (35.5-45.6) % Plt Count 129 L (140-440) K/mm3 Comprehensive Metabolic Panel 05/06/22 Range/Units 23:31 Sodium 134 L (137-145) mmol/L Potassium 3.5 L (3.6-5.0) mmol/L Chloride 97.1 L (98-107) mmol/L Carbon Dioxide 24 (22-30) mmol/L BUN 40 H (9-20) mg/dL Creatinine 3.1 H (0.8-1.3) mg/dL Glucose 47 L (75-100) mg/dL Calcium 6.6 L (8.4-10.2) mg/dL - Imaging and Cardiology EKG: report reviewed, image reviewed Echo: report reviewed - Telemetry EKG Rhythm: Sinus Rhythm - EKG Sinus rhythms and dysrhythmias: sinus tachycardia AV and intraventricular conduction: left anterior fascicular
[2022-05-07] MEDS ORDERED: ALBUTEROL 2.5 MG/3 ML NEBU IH ONE (13:33)
[2022-05-07] MEDS ORDERED: ALBUTEROL 2.5 MG/3 ML NEBU IH PRN (13:50)
[2022-05-07 14:53] LABS: Hematocrit 22.4 % (35.5-45.6); Hemoglobin 7.6 gm/dl (11.8-15.2); Mean Corpuscular HGB Conc 34 % (32-34); Mean Corpuscular Volume 95 fl (84-94); Platelet Count 140 K/mm3 (140-440); Red Blood Count 2.35 M/mm3 (3.65-5.03); Red Cell Distribution Width 15.6 % (13.2-15.2)
[2022-05-07 15:39] LABS: Calcium 6.7 mg/dL (8.4-10.2)
[2022-05-07 15:58] LABS: Band Neutrophils # (Manual) 0.2 K/mm3; Basophils % (Manual) 0 % (0.0-1.8); Eosinophils % (Manual) 0 % (0.0-4.3); Total Cells Counted 100
[2022-05-07 15:59] LABS: Anisocytosis 1+; Large Platelets Few; Platelet Estimate Consistent w Auto; Poikilocytosis 1+; Stomatocytes 3+
[2022-05-07] MEDS: cefTRIAXone/NS 1 GM/50 ML 1 GM/50 ML BAG IV SCH (17:14)
[2022-05-08] MEDS ORDERED: SODIUM CHLORIDE 0.9% 1000 ML 1,000 ML IV SCH (07:45)
--- NOTE | 2022-05-08 07:49 | Progress Note ---
Assessment and Plan Assessment and plan: History Interval history: This is a 76-year-old male with OHS, CVA x2, legally blind, CHF with AICD in situ, CKD (? Stage IV) not on hemodialysis and DM who presented to the em ergency department on 05/01 via EMS with complaints of feeling weak over the past couple days. Upon EMS arrival patient was found to be hypotensive SBP in the 50s and was subsequently placed on IV fluid and transported to [facility]. In the emergency department patient was found to have a systolic blood pressure in the 80s, GERALDINE with ATN, metabolic acidosis as well as fluid overload. Patient was admitted to [facility] initially but later required the use of vasopressors and was upgraded to ICU. Patient was admitted to the hospitalist service with r/o sepsis, GERALDINE with ATN, metabolic acidosis,, toxic metabolic encephalopathy, fluid overload with consults to [facility]. Hospital course to date: 05/02: Patient Levophed weaned, added midodrine. Per CCM he received additional 4 L LR bolus. 05/03: Started on zinc, Micah and vitamin C per nutrition, started on dobutamine. Wean Levophed as tolerated. Echocardiogram pending. 05/04: Remains on dobutamine drip in the morning but was discontinued later. Now started on Coreg twice daily. We will continue to monitor in the ICU and po ssible transfer to floor tomorrow. 05/05: We will consult cardiology given reduction in EF. Patient will be transferred to [facility]. We will continue Coreg. No acute events reported overnight. CXR and UA obtained due to low-grade fever. CXR unremarkable. 05/06: Will add coreg 3.125. hold off on rashid given renal fx. Cardiology is consulted re: HFrEF medical management. Complaining of chills. CXR and UA reviewed. CXR shows mild interstitial markings. UA shows mildly elevated urine wbc cells. denies any urinary symptoms but feels chills and documented temp of 100F. WBC ct on 05/05 was 20.1K after being 8.9K on 05/01. Will order Rocephin IV. Was treated with vancomycin x 1 on 05/05 and recultured. COVID 19 test ordered. AM labs ordered. Otherwise medically stable for transfer to [facility]. 05/07: WBC count downtrending. COVID negative. Plan for patient discharge tomorrow. He will go home with home health care PT. Discharge planning conducted with CM this AM. Patient has telemetry bed orders. 05/08: No fever overnight, but WBC increased. continue antibiotic therapy for UTI. Differential for source includes urinary or potential leg wounds. Patient will not let staff properly examine or address wound. Worsening urine output. Nephrology consulted. They recommended dialysis but patient declined. There is very little at this point that can be done to help patient as he has refused most therapies (dialyisis, wound care). he is adament about discharge. Will discharge home today. Discharge home with rx for. Advised to follow up [facility] with [facility]. Assessment and plan: This is a 76-year-old male with OHS, CVA x2, CHF and AICD in situ, CKD admitted with GERALDINE, metabolic acidosis, toxic metabolic encephalopathy, fluid overload Neuro: Acute metabolic encephalopathy (resolved), h/o CVA x2, legally blind -Reorientation as needed -Maintain sleep-wake cycle -As needed analgesia Cardiac: acute HFrEF with AICD in situ, Hypotension, lactic acidosis, -Blood pressure monitoring per protocol -Vasopressor support with vasopressin -MAP goal greater than 65 -Midodrine p.o. -Echocardiogram showed shows severe global hypokinesis of left ventricle, LVEF 20%, trace pericardial effusion, moderate left pleural effusion -s/p Dobutamine gtt -Coreg -proBNP 39826 -S/p 3500 mL normal saline in the ED -S/p 4 L LR in the ICU Respiratory: NAD -CCM consulted, appreciate recommendations -Pulmonary hygiene -SPO2 monitoring -Supplemental oxygen as needed GI: Severe protein calorie malnutrition -Cardiac cc diet -PPI -CT abdomen/pelvis without contrast shows no abnormality noted within the abdomen or pelvis, moderate amount of calcified plaque seen throughout the abdominal aorta and common iliac arteries with out associated aneurysm, no GI abnormality other than simple sigmoid diverticulosis : Acute on chronic kidney disease -Monitor intake and output -Renally dose medications -Avoid nephrotoxic medications -Will not replete hypokalemia in setting of BUN/creatinine of 3.4/36 -Trend BMP ID: Sepsis POA, Chronic lymphedema, possible urinary tract infection -Presented with tachycardia, hypotension, acute kidney injury, leukocytosis....source potentially urinary vs leg wounds - covid negative -f/u blood culture- NGTD. -WOCN consulted -Monitor WBC and temperature curve - Rocephin IV x 3-5 days for UTI. Endo: Type 2 diabetes -Avoid hypoglycemia -SSI -Accu-Cheks q. ACH S Heme: Leukocytosis, thrombocytopenia -Trend CBC -Transfuse hemoglobin less than 7 -SCDs to BLE while in bed #Advance care planning Disease education conducted, care plan discussed, diagnoses discussed, prognosis discussed, patient is full code, patient acknowledges understanding and agree with care plan, +30 minutes. Time spent: +35 min CPT 27880 Hospitalist Physical - Physical exam Narrative exam: Physical Exam: VITAL SIGNS: Reviewed. GENERAL: The patient appears normally developed, Vital signs as documented. HEAD: No signs of head trauma. EYES: Pupils are equal. Extraocular motions intact. EARS: Hearing grossly intact. MOUTH: Oropharynx is normal. NECK: No adenopathy, no JVD. CHEST: Chest with clear breath sounds bilaterally. No wheezes, rales, or rhonchi. CARDIAC: Regular rate and rhythm. S1 and S2, without murmurs, gallops, or rubs. VASCULAR: No Edema. Peripheral pulses normal and equal in all extremities. ABDOMEN: Soft, non tender and non distended. No rebound or guarding, and no masses palpated. Bowel Sounds normal. MUSCULOSKELETAL: Good range of motion of all major joints. Extremities without clubbing, cyanosis or edema. NEUROLOGIC EXAM: Alert and oriented x 4. no focal sensory or strength deficits. PSYCHIATRIC: Mood normal. SKIN: detail exam as documented in skin assessment - Constitutional Vitals: Temp Pulse Resp BP Pulse Ox 97.9 F 93 H 18 112/71 98 05/08/22 03:42 05/08/22 03:42 05/08/22 03:42 05/08/22 03:42 05/08/22 03:42 General appearance: Present: no acute distress Results - Labs CBC & Chem 7: 05/07/22 14:20 05/07/22 14:20 Labs: Laboratory Last Values WBC 20.1 K/mm3 (4.5-11.0) H 05/07/22 14:20 RBC 2.35 M/mm3 (3.65-5.03) L 05/07/22 14:20 Hgb 7.6 gm/dl (11.8-15.2) L 05/07/22 14:20 Hct 22.4 % (35.5-45.6) L 05/07/22 14:20 MCV 95 fl (84-94) H 05/07/22 14:20 MCH 32 pg (28-32) 05/07/22 14:20 MCHC 34 % (32-34) 05/07/22 14:20 RDW 15.6 % (13.2-15.2) H 05/07/22 14:20 Plt Count 140 K/mm3 (140-440) 05/07/22 14:20 Lymph % (Auto) 7.6 % (13.4-35.0) L 05/02/22 05:09 [place] % (Auto) 3.9 % (0.0-7.3) 05/02/22 05:09 Eos % (Auto) 0.0 % (0.0-4.3) 05/02/22 05:09 Baso % (Auto) 0.5 % (0.0-1.8) 05/02/22 05:09 Lymph # (Auto) 1.3 K/mm3 (1.2-5.4) 05/02/22 05:09 [place] # (Auto) 0.7 K/mm3 (0.0-0.8) 05/02/22 05:09 Eos # (Auto) 0.0 K/mm3 (0.0-0.4) 05/02/22 05:09 Baso # (Auto) 0.1 K/mm3 (0.0-0.1) 05/02/22 05:09 Add Manual Diff Complete 05/07/22 14:20 Total Counted 100 05/07/22 14:20 Seg Neutrophils % 88.0 % (40.0-70.0) H 05/02/22 05:09 Seg Neuts % (Manual) 95.0 % (40.0-70.0) H 05/07/22 14:20 Band Neutrophils % 1.0 % 05/07/22 14:20 Lymphocytes % (Manual) 0 % (13.4-35.0) L 05/07/22 14:20 Reactive Lymphs % (Man) 0 % 05/07/22 14:20 Monocytes % (Manual) 4.0 % (0.0-7.3) 05/07/22 14:20 Eosinophils % (Manual) 0 % (0.0-4.3) 05/07/22 14:20 Basophils % (Manual) 0 % (0.0-1.8) 05/07/22 14:20 Metamyelocytes % 0 % 05/07/22 14:20 Myelocytes % 0 % 05/07/22 14:20 Promyelocytes % 0 % 05/07/22 14:20 Blast Cells % 0 % 05/07/22 14:20 Nucleated RBC % Not Reportable 05/07/22 14:20 Seg Neutrophils # 15.2 K/mm3 (1.8-7.7) H 05/02/22 05:09 Seg Neutrophils # Man 19.1 K/mm3 (1.8-7.7) H 05/07/22 14:20 Band Neutrophils # 0.2 K/mm3 05/07/22 14:20 Lymphocytes # (Manual) 0.0 K/mm3 (1.2-5.4) L 05/07/22 14:20 Abs React Lymphs (Man) 0.0 K/mm3 05/07/22 14:20 Monocytes # (Manual) 0.8 K/mm3 (0.0-0.8) 05/07/22 14:20 Eosinophils # (Manual) 0.0 K/mm3 (0.0-0.4) 05/07/22 14:20 Basophils # (Manual) 0.0 K/mm3 (0.0-0.1) 05/07/22 14:20 Metamyelocytes # 0.0 K/mm3 05/07/22 14:20 Myelocytes # 0.0 K/mm3 05/07/22 14:20 Promyelocytes # 0.0 K/mm3 05/07/22 14:20 Blast Cells # 0.0 K/mm3 05/07/22 14:20 WBC Morphology Not Reportable 05/07/22 14:20 Hypersegmented Neuts Not Reportable 05/07/22 14:20 Hyposegmented Neuts Not Reportable 05/07/22 14:20 Hypogranular Neuts Not Reportable 05/07/22 14:20 Smudge Cells Not Reportable 05/07/22 14:20 Toxic Granulation Not Reportable 05/07/22 14:20 Toxic Vacuolation Not Reportable 05/07/22 14:20 Dohle Bodies Not Reportable 05/07/22 14:20 Pelger-Huet Anomaly Not Reportable 05/07/22 14:20 Arnold Rods Not Reportable 05/07/22 14:20 Platelet Estimate Consistent w auto 05/07/22 14:20 Clumped Platelets Not Reportable 05/07/22 14:20 Plt Clumps, EDTA Not Reportable 05/07/22 14:20 Large Platelets Few 05/07/22 14:20 Giant Platelets Not Reportable 05/07/22 14:20 Platelet Satelliting Not Reportable 05/07/22 14:20 Plt Morphology Comment Not Reportable 05/07/22 14:20 RBC Morphology Not Reportable 05/07/22 14:20 Dimorphic RBCs Not Reportable 05/07/22 14:20 Polychromasia Not Reportable 05/07/22 14:20 Hypochromasia Not Reportable 05/07/22 14:20 Poikilocytosis 1+ 05/07/22 14:20 Anisocytosis 1+ 05/07/22 14:20 Microcytosis Not Reportable 05/07/22 14:20 Macrocytosis Not Reportable 05/07/22 14:20 Spherocytes Not Reportable 05/07/22 14:20 Pappenheimer Bodies Not Reportable 05/07/22 14:20 Sickle Cells Not Reportable 05/07/22 14:20 Target Cells Not Reportable 05/07/22 14:20 Tear Drop Cells Not Reportable 05/07/22 14:20 Ovalocytes Not Reportable 05/07/22 14:20 Stomatocytes 3+ 05/07/22 14:20 Helmet Cells Not Reportable 05/07/22 14:20 [place] Bodies Not Reportable 05/07/22 14:20 [place] Rings Not Reportable 05/07/22 14:20 [place] Cells Not Reportable 05/07/22 14:20 Bite Cells Not Reportable 05/07/22 14:20 Crenated Cell Not Reportable 05/07/22 14:20 Elliptocytes Not Reportable 05/07/22 14:20 Acanthocytes (Spur) Not Reportable 05/07/22 14:20 Rouleaux Not Reportable 05/07/22 14:20 Hemoglobin C Crystals Not Reportable 05/07/22 14:20 Schistocytes Not Reportable 05/07/22 14:20 Malaria parasites Not Reportable 05/07/22 14:20 ESR 43 mm/Hr (0-20) 05/02/22 05:09 Harpreet Bodies Not Reportable 05/07/22 14:20 Hem Pathologist Commnt No 05/07/22 14:20 Sodium 132 mmol/L (137-145) L 05/07/22 14:20 Potassium 3.6 mmol/L (3.6-5.0) 05/07/22 14:20 Chloride 93.2 mmol/L (98-107) L 05/07/22 14:20 Carbon Dioxide 25 mmol/L (22-30) 05/07/22 14:20 Anion Gap 17 mmol/L 05/07/22 14:20 BUN 40 mg/dL (9-20) H 05/07/22 14:20 Creatinine 3.4 mg/dL (0.8-1.3) H 05/07/22 14:20 Estimated GFR 22 ml/min 05/07/22 14:20 BUN/Creatinine Ratio 12 % 05/07/22 14:20 Glucose 148 mg/dL (75-100) H 05/07/22 14:20 POC Glucose 120 mg/dL (70-105) H 05/07/22 21:19 Lactic Acid 3.40 mmol/L (0.7-2.0) H* 05/07/22 14:20 Calcium 6.7 mg/dL (8.4-10.2) L 05/07/22 14:20 Phosphorus 2.80 mg/dL (2.5-4.5) 05/05/22 04:00 Magnesium 1.90 mg/dL (1.7-2.3) 05/05/22 04:00 Total Bilirubin 0.30 mg/dL (0.1-1.2) 05/02/22 05:09 AST 18 units/L (5-40) 05/02/22 05:09 ALT 7 units/L (7-56) 05/02/22 05:09 Alkaline Phosphatase 113 units/L (35-129) 05/02/22 05:09 C-Reactive Protein 16.10 mg/dL (0.00-1.30) H 05/01/22 22:57 NT-Pro-B Natriuret Pep 82231 pg/mL (0-900) H 05/01/22 22:57 Total Protein 6.0 g/dL (6.3-8.2) L D 05/02/22 05:09 Albumin 1.6 g/dL (3.9-5) L 05/02/22 05:09 Albumin/Globulin Ratio 0.4 % 05/02/22 05:09 TSH 0.918 mlU/mL (0.270-4.200) 05/01/22 22:57 Free T4 0.96 ng/dL (0.76-1.46) 05/01/22 22:57 Urine Color Anuradha (Yellow) 05/05/22 09:45 Urine Turbidity Slightly cloudy (Clear) 05/05/22 09:45 Urine pH 5.0 (5.0-7.0) 05/05/22 09:45 Ur Specific [place] 1.015 (1.003-1.030) 05/05/22 09:45 Specific [place] (Man) 1.015 (1.003-1.030) 05/02/22 01:24 Urine Protein 30 mg/dl mg/dL (Negative) 05/05/22 09:45 Ur Protein (Man) <30 mg dl mg/dL (Negative) 05/02/22 01:24 Urine Glucose (UA) Negative mg/dL (Negative) 05/05/22 09:45 Urine Ketones Trace mg/dL (Negative) 05/05/22 09:45 Ur Ketones (Man) Negative (Negative) 05/02/22 01:24 Urine Blood Negative (Negative) 05/05/22 09:45 Urine Nitrite Negative (Negative) 05/05/22 09:45 Ur Nitrite (Man) Negative (Negative) 05/02/22 01:24 Ur Reducing Substances Not Reportable 05/05/22 09:45 Urine Bilirubin Negative (Negative) 05/05/22 09:45 Urine Bilirubin (Man) Negative (Negative) 05/02/22 01:24 Urine Ictotest Not Reportable 05/05/22 09:45 Urine Urobilinogen Small mg/dL (<2.0) 05/05/22 09:45 Ur Leukocyte Esterase Small (Negative) 05/05/22 09:45 Leukocyte Esterase (Man) Negative (Negative) 05/02/22 01:24 Urine WBC (Auto) 7.0 /HPF (0.0-6.0) H 05/05/22 09:45 Urine RBC (Auto) < 1.0 /HPF (0.0-6.0) 05/05/22 09:45 U Epithel Cells (Auto) 2.0 /HPF (0-13.0) 05/05/22 09:45 Urine Bacteria (Auto) 1+ /HPF (Negative) 05/05/22 09:45 Urine RBC (Manual) Negative (Negative) 05/02/22 01:24 Amorphous Crystals Few 05/05/22 09:45 Hyaline Casts 1 /LPF 05/05/22 09:45 Ur Yeast w Hyphae Few /HPF 05/05/22 09:45 Urine Yeast (Budding) 3+ /HPF 05/05/22 09:45 Coronavirus (PCR) Negative (Negative) 05/07/22 07:57 Blood Type O POSITIVE 05/01/22 22:57 Antibody Screen Negative 05/01/22 22:57 Microbiology: Microbiology 05/05/22 18:35 Peripheral/Venous Blood Culture - Preliminary NO GROWTH AFTER 48 HOURS 05/05/22 18:35 Peripheral/Venous Blood Culture - Preliminary NO GROWTH AFTER 48 HOURS Venegas/IV: Voiding Method Condom Catheter Active Medications - Current Medications Current Medications: Generic Name Dose Route Start Last Admin Trade Name Freq PRN Reason Stop Dose Admin Acetaminophen 650 mg 05/05/22 16:42 05/06/22 21:58 Acetaminophen 325 Mg Tab PO 650 mg Q4H PRN Administration Non Cardiac Pain or Temp>100.5 Al Hydrox/Mg Hydrox/Simethicone 15 ml 05/05/22 09:49 Alum-Mag Hydroxide-Simethicone 099-215-30um/5ml Oral Liqd 30 Ml PO Q4H PRN Indigestion Albuterol 2.5 mg 05/07/22 13:50 Albuterol 2.5 Mg/3 Ml Nebu IH Q4HRT PRN Shortness Of Breath Ascorbic Acid 500 mg 05/03/22 12:00 05/07/22 21:14 Ascorbic Acid 500 Mg Tab PO 500 mg BID ALEX Administration Aspirin 81 mg 05/07/22 10:00 05/07/22 09:03 Aspirin 81 Mg Tab Chew PO 81 mg QDAY ALEX Administration Atorvastatin Calcium 20 mg 05/06/22 22:00 05/07/22 21:14 Atorvastatin 20 Mg Tab PO 20 mg QHS ALEX Administration Benzocaine/Menthol 1 each 05/02/22 11:00 05/07/22 08:20 Benzocaine/Menthol Lozenge MM 1 each Q2H PRN Administration Sore Throat Carvedilol 6.25 mg 05/04/22 11:00 05/07/22 21:14 Carvedilol 6.25 Mg Tab PO Not Given BID ALEX Dextrose 25 ml 05/05/22 12:18 05/07/22 01:37 Dextrose 50% In Water (25gm) 50 Ml Syringe IV 25 ml Q30MIN PRN Administration Hypoglycemia Protocol Ceftriaxone Sodium 1 gm in 50 mls @ 100 mls/hr 05/06/22 17:00 05/07/22 17:14 Rocephin/Ns 1 Gm/50 Ml IV 100 mls/hr Q24H ALEX Administration Protocol Sodium Chloride 1,000 mls @ 100 mls/hr 05/08/22 07:45 Nacl 0.9% 1000 Ml IV 05/08/22 17:44 DIRECT ALEX Midodrine 10 mg 05/03/22 12:00 05/07/22 17:14 Midodrine 10 Mg Tab PO 10 mg TID@0800,1200,1600 ALEX Administration Ondansetron HCl 4 mg 05/04/22 09:29 05/07/22 12:43 Ondansetron 4 Mg/2 Ml Inj IV 4 mg Q4H PRN Administration Nausea And Vomiting Oxycodone/Acetaminophen 1 tab 05/01/22 20:29 05/06/22 17:17 Oxycodone /Acetaminophen 5-325mg Tab PO 1 tab Q6H PRN Administration Pain, Moderate (4-6) Potassium Chloride 40 meq 05/07/22 10:00 05/07/22 09:48 Potassium Chloride Er 20 Meq Tab PO 40 meq QDAY ALEX Administration Simethicone 80 mg 05/03/22 20:00 05/03/22 20:40 Simethicone 80 Mg Chew Tab PO 80 mg Q6H PRN Administration Gas pain Sodium Chloride 10 ml 05/01/22 22:00 05/07/22 21:14 Sodium Chloride 0.9% 10 Ml Flush Syringe IV 10 ml BID ALEX Administration Sodium Chloride 10 ml 05/01/22 20:29 05/04/22 09:35 Sodium Chloride 0.9% 10 Ml Flush Syringe IV 10 ml PRN PRN Administration LINE FLUSH Zinc Sulfate 220 mg 05/03/22 22:00 05/07/22 21:14 Zinc Sulfate 220 Mg Cap PO 220 mg BID ALEX Administration Nutrition/Malnutrition Assess - Dietary Evaluation Nutrition/Malnutrition Findings: Nutrition Notes Start: 05/03/22 13:40 Freq: Status: Active Protocol: Document 05/03/22 13:40 CM (Rec: 05/03/22 14:02 CM [id number]) Co-Sign 05/03/22 13:40 WW Nutrition Notes Need for Assessment generated from: spinning mule tender,MST Initial or Follow up Assessment Current Diagnosis Acute Kidney Injury,CKD(stage I-IV),Diabetes,Stroke Other Pertinent Diagnosis SIRS, metabolic acidosis, OHS, fluid overload Current Diet Consistent Carbohydrate Labs/Tests 05/03: Na 136 K 3.5 Cl 97.2 BUN 33 Cr 3.1 Pertinent Medications 05/03: Vitamin C Norepinephrine Zinc Sulfate Height 5 ft 7 in Weight 117.934 kg Usual Body Weight 113.1 kg [place] Body Weight (kg) 67.27 BMI 40.7 Intake Prior to Admission Good Weight change and time frame 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 Pt reported UBW of 249lb and wt loss of ~90lb beginning in June 2021 d/t unspecified illness. Pt currently ~9lb greater than UBW at this time - BLE edema noted at time of visit (May be masking weight loss). Weight Status Obese Subjective/Other Information RD consult for malnutrition screening score 2 and skin risk assessment. Nutrition focused physical assessment performed indicating moderate muscle wasting and subcutaneous fat loss - indicative of moderate malnutrition in setting of chronic disease. Pt reported decreased appetite since June 2021, but denied N/V, abdominal pain, or difficulty chewing/swallowing . No %PO intake at this time. Stage III (R Heel) / Stage II (Sacrum) Pressure ulcers and dry/flaky skin breakdown of LE . Recommended Zinc Sulfate, Vitamin C, and Micah BID administration. Burn Absent Trauma Absent GI Symptoms None Food Allergy No Skin Integrity/Comment Dry, flaking, breakdown, III Ulcer Minimum of two criteria Yes Body Fat Depletion Moderate depletion (severe) Muscle Mass Moderate Depletion (severe) #2 Nutrition Diagnosis Altered nutrition-related laboratory values Etiology GERALDINE on CKD As Evidenced by Signs and Symptoms BUN 33 / Cr 3.1 / Na 136 #1 Nutrition Diagnosis Malnutrition Comments: Moderate in setting of chronic disease. Etiology Decreased appetite ~10mo As Evidenced by Signs and Symptoms Pt report of decreased appetite over ~10mo, moderate muscle wasting (temples, acromion) / subcutaneous fat loss (triceps). Is patient on ventilator? No Is Patient Ambulatory and/or Out of Bed No REE-([facility]-confined to bed) [phone] Calculation Used for Recommendations [facility] Additional Notes Protein: 0.9-1.2g/kg AdjBW; 83 -111g PRO q day Fluid: 500mL + total output or per team Nutrition Intervention Change Diet Order: Recommend changing diet to renal diet if blood glucose is WNL. Add Supplement/Snack (indicate name/kcal Micah BID /protein ) Provides kCal: 180 Goal #1 Pt to consume >75% of estimated energy/protein needs through current diet order Goal #2 Normalize nutrition-related labs through diet modification Follow-Up By: 05/08/22 Additional Comments Monitor %PO intake, nutrition- related lab values, wt status, and integumentary system
--- NOTE | 2022-05-08 09:11 | Consultation ---
History of Present Illness - Reason for Consult Consult date: 05/08/22 acute renal failure, chronic renal failure - History of Present Illness The patient is a 76 YO male with history of Morbid Obesity, DM, OHS, CVA x2, legally blind, CHF with AICD in situ and CKD (? Stage IV) who presented to [facility] ED 05/01/22 via EMS with 2 days h/o feeling weak. Patient is a poor historian. Upon EMS arrival patient was found to be hypotensive with SBP in the 50s and was subsequently placed on IV fluid and transported to [facility]. In the emergency department patient was found to have a systolic blood pressure in the 80s, GERALDINE, metabolic acidosis and fluid overload. Patient was admitted to IMCU initially but later required the use of vasopressors and was upgraded to ICU. Patient was admitted to the hospitalist service with sepsis, GERALDINE, metabolic acidosis, toxic metabolic encephalopathy and CHF. Labs notable for Creat 3.4, BUN 40 and Sodium 134. Nephrology consulted for further evaluation and treatment of GERALDINE. Past History Past Medical History: diabetes, heart failure, renal failure, other (See HPI, otherwise unable obtain) Past Surgical History: Other (Reports spinal surgery) Social history: . denies: smoking, alcohol abuse, prescription drug abuse Family history: diabetes Medications and Allergies Allergies Allergy/AdvReac Type Severity Reaction Status Date / Time No Known Allergies Allergy Verified 05/01/22 12:55 Home Medications Medication Instructions Recorded Confirmed Last Taken Type Amoxicillin/Potassium Clav 1 each PO BID 7 Days #14 tab 05/08/22 Unknown Rx [Augmentin 500-125 Tablet] Aspirin [Aspirin BABY CHEW TAB] 81 mg PO QDAY 30 Days #30 tab.chew 05/08/22 Unknown Rx AtorvaSTATin [Lipitor] 20 mg PO QHS 30 Days #30 tablet 05/08/22 Unknown Rx carvediloL [Coreg] 6.25 mg PO BID 30 Days #60 tablet 05/08/22 Unknown Rx Active Meds: Active Medications Acetaminophen (Acetaminophen 325 Mg Tab) 650 mg PO Q4H PRN PRN Reason: Non Cardiac Pain or Temp>100.5 Last Admin: 05/06/22 21:58 Dose: 650 mg Al Hydrox/Mg Hydrox/Simethicone (Alum-Mag Hydroxide-Simethicone 822-882-12ab/5ml Oral Liqd 30 Ml) 15 ml PO Q4H PRN PRN Reason: Indigestion Albuterol (Albuterol 2.5 Mg/3 Ml Nebu) 2.5 mg IH Q4HRT PRN PRN Reason: Shortness Of Breath Ascorbic Acid (Ascorbic Acid 500 Mg Tab) 500 mg PO BID [facility] Last Admin: 05/07/22 21:14 Dose: 500 mg Aspirin (Aspirin 81 Mg Tab Chew) 81 mg PO QDAY [facility] Last Admin: 05/07/22 09:03 Dose: 81 mg Atorvastatin Calcium (Atorvastatin 20 Mg Tab) 20 mg PO QHS [facility] Last Admin: 05/07/22 21:14 Dose: 20 mg Benzocaine/Menthol (Benzocaine/Menthol Lozenge) 1 each MM Q2H PRN PRN Reason: Sore Throat Last Admin: 05/07/22 08:20 Dose: 1 each Carvedilol (Carvedilol 6.25 Mg Tab) 6.25 mg PO BID [facility] Last Admin: 05/07/22 21:14 Dose: Not Given Dextrose (Dextrose 50% In Water (25gm) 50 Ml Syringe) 25 ml IV Q30MIN PRN; Protocol PRN Reason: Hypoglycemia Last Admin: 05/07/22 01:37 Dose: 25 ml Ceftriaxone Sodium (Rocephin/Ns 1 Gm/50 Ml) 1 gm in 50 mls @ 100 mls/hr IV Q24H [facility]; Protocol Last Admin: 05/07/22 17:14 Dose: 100 mls/hr Sodium Chloride (Nacl 0.9% 1000 Ml) 1,000 mls @ 100 mls/hr IV DIRECT ALEX Stop: 05/08/22 17:44 Midodrine (Midodrine 10 Mg Tab) 10 mg PO TID@0800,1200,1600 [facility] Last Admin: 05/07/22 17:14 Dose: 10 mg Ondansetron HCl (Ondansetron 4 Mg/2 Ml Inj) 4 mg IV Q4H PRN PRN Reason: Nausea And Vomiting Last Admin: 05/07/22 12:43 Dose: 4 mg Oxycodone/Acetaminophen (Oxycodone /Acetaminophen 5-325mg Tab) 1 tab PO Q6H PRN PRN Reason: Pain, Moderate (4-6) Last Admin: 05/06/22 17:17 Dose: 1 tab Potassium Chloride (Potassium Chloride Er 20 Meq Tab) 40 meq PO QDAY [facility] Stop: 05/08/22 09:59 Last Admin: 05/07/22 09:48 Dose: 40 meq Simethicone (Simethicone 80 Mg Chew Tab) 80 mg PO Q6H PRN PRN Reason: Gas pain Last Admin: 05/03/22 20:40 Dose: 80 mg Sodium Chloride (Sodium Chloride 0.9% 10 Ml Flush Syringe) 10 ml IV BID ALEX Last Admin: 05/07/22 21:14 Dose: 10 ml Sodium Chloride (Sodium Chloride 0.9% 10 Ml Flush Syringe) 10 ml IV PRN PRN PRN Reason: LINE FLUSH Last Admin: 05/04/22 09:35 Dose: 10 ml Zinc Sulfate (Zinc Sulfate 220 Mg Cap) 220 mg PO BID ALEX Last Admin: 05/07/22 21:14 Dose: 220 mg Review of Systems All systems: negative Exam - Vital Signs Vital signs: Vital Signs Temp Pulse Resp BP Pulse Ox 98.7 F 110 H 18 84/63 98 05/01/22 12:52 05/01/22 12:52 05/01/22 12:52 05/01/22 12:52 05/01/22 12:52 Results - Lab Results 05/07/22 14:20 05/07/22 14:20 Most recent lab results Calcium 6.7 mg/dL (8.4-10.2) L 05/07/22 14:20 Phosphorus 2.80 mg/dL (2.5-4.5) 05/05/22 04:00 Magnesium 1.90 mg/dL (1.7-2.3) 05/05/22 04:00 Assessment and Plan 1. Acute kidney injury: Vasomotor GERALDINE superimposed on CKD in the setting of shock. Imaging negative for hydro/stone. Urine studies ordered. Monitor renal function. Creatinine level fluctuates. Renal prognosis is guarded. Avoid nephrotoxic agents. Meds dosage based on GFR. Monitor for SHIPFITTER needs. Most likely need HD for volume control Patient refused dialysis. 2. FEN: Volume overload, diuretics as needed. Hyponatremia, limit fluid intake. Counseled to limit salt and fluid intake. Replete lytes as needed. Monitor lytes and volume status. 3. HFrEF, POA: Cardiomyopathy of unknown etiology s/p AICD implantation. Echo 05/02/2022-EF 20%, Mild concentric LVH. ASA, statin, Coreg per Cards. Followed by Cards. 4. Sepsis with Shock, POA: Was on pressors. Monitor BP. Per primary. 5. Acute metabolic encephalopathy (resolved), h/o CVA x2. Monitor. 6. Type 2 diabetes: Accu-Cheks and SSI. 7. Leukocytosis, thrombocytopenia: Trend CBC. Subjective: Patient was seen and examined at the bedside. Examination: General appearance: well-developed, obese, appears stated age, no distress HEENT: atraumatic, KANW[place], no icterus Neck: trachea midline Respiratory: diminished breath sounds Heart: S1S2, regular, no murmur Abdomen: soft, bowel sounds heard, NT Integumentary: diffuse scaly rash Neurologic: alert, conversing, able to move extremities Ext: 2+ LE edema, anasarca noted
[2022-05-08] MEDS: ASCORBIC ACID 500 MG TAB PO SCH (10:14)
[2022-05-08] MEDS: carvediloL 6.25 MG TAB PO SCH (10:15)
[2022-05-08] MEDS: POTASSIUM CHLORIDE ER 20 MEQ TAB PO SCH (10:16)
[2022-05-08] MEDS: ASPIRIN 81 MG TAB CHEW PO SCH (10:16)
[2022-05-08] MEDS ORDERED: MIDODRINE 5 MG TAB PO SCH (12:00)
[2022-05-08] MEDS ORDERED: MIDODRINE 10 MG TAB PO SCH (12:00)
[2022-05-08 12:12] VITALS: BP 126/56
--- NOTE | 2022-05-08 12:13 | Discharge Summary ---
Providers - Providers Date of Admission: 05/01/22 20:29 Date of discharge: 05/08/22 Attending physician: TREVIN GEE MD 05/02/22 10:40 Consult to Wound/ET Nurse [CONS] Routine Reason For Exam: wound eval B/l LE. 05/05/22 11:10 Consult to Physician [CONS] Routine Comment: Consulting Provider: ILEANA REYES Physician Instructions: Reason For Exam: chf 05/05/22 12:17 Occupational Therapy Evaluate and Treat [CONS] Routine Comment: Reason For Exam: weakness, recent falls Physical Therapy Evaluation and Treat [CONS] Routine Comment: Reason For Exam: weakness, recent falls 05/08/22 07:42 Consult to Physician [CONS] Routine Comment: Consulting Provider: PATRICIA TITUS Physician Instructions: Reason For Exam: geraldine on ckd Primary care physician: GREASE PRESS HELPER Hospitalization Reason for admission: weakness Condition: Fair Hospital course: History Interval history: This is a 76-year-old male with OHS, CVA x2, legally blind, CHF with AICD in situ, CKD (? Stage IV) not on hemodialysis and DM who presented to the emergency department on 05/01 via EMS with complaints of feeling weak over the past couple days. Upon EMS arrival patient was found to be hypotensive SBP in the 50s and was subsequently placed on IV fluid and transported to [facility]. In the emergency department patient was found to have a systolic blood pressure in the 80s, GERALDINE with ATN, metabolic acidosis as well as fluid overload. Patient was admitted to IMCU initially but later required the use of vasopressors and was upgraded to ICU. Patient was admitted to the hospitalist service with r/o sepsis, GERALDINE with ATN, metabolic acidosis,, toxic metabolic encephalopathy, fluid overload with consults to CCM. Hospital course to date: 05/02: Patient Levophed weaned, added midodrine. Per CCM he received additional 4 L LR bolus. 05/03: Started on zinc, Micah and vitamin C per nutrition, started on dobutamine. Wean Levophed as tolerated. Echocardiogram pending. 05/04: Remains on dobutamine drip in the morning but was discontinued later. Now started on Coreg twice daily. We will continue to monitor in the ICU and possible transfer to floor tomorrow. 05/05: We will consult cardiology given reduction in EF. Patient will be transferred to IM. We will continue Coreg. No acute events reported overnight. CXR and UA obtained due to low-grade fever. CXR unremarkable. 05/06: Will add coreg 3.125. hold off on kris given renal fx. Cardiology is consulted re: HFrEF medical management. Complaining of chills. CXR and UA reviewed. CXR shows mild interstitial markings. UA shows mildly elevated urine wbc cells. denies any urinary symptoms but feels chills and documented temp of 100F. WBC ct on 05/05 was 20.1K after being 8.9K on 05/01. Will order Rocephin IV. Was treated with vancomycin x 1 on 05/05 and recultured. COVID 19 test ordered. AM labs ordered. Otherwise medically stable for transfer to tele bed. 05/07: WBC count downtrending. COVID negative. Plan for patient discharge tomorrow. He will go home with home health care PT. Discharge planning conducted with CM this AM. Patient has telemetry bed orders. 05/08: No fever overnight, but WBC increased. continue antibiotic therapy for UTI. Differential for source includes urinary or potential leg wounds. Patient will not let staff properly examine or address wound. Worsening urine output. Nephrology consulted. They recommended dialysis but patient declined. There is very little at this point that can be done to help patient as he has refused most therapies (dialyisis, wound care). He is adament about discharge. Will discharge home today with specific instructions to follow up with a wound care clinic physician as well as a child care center administrator. Discharge home with rx for coreg, asa, atorvastatin, agumentin x 7 days, Medications e-rx to pharmacy. [facility] Also advised to follow up TONY with cardiology as OP. Assessment and plan: This is a 76-year-old male with OHS, CVA x2, CHF and AICD in situ, CKD admitted with GERALDINE, metabolic acidosis, toxic metabolic encephalopathy, fluid overload Neuro: Acute metabolic encephalopathy (resolved), h/o CVA x2, legally blind -Reorientation as needed -Maintain sleep-wake cycle -As needed analgesia Cardiac: acute HFrEF with AICD in situ, Hypotension, lactic acidosis, -Blood pressure monitoring per protocol -Vasopressor support with vasopressin -MAP goal greater than 65 -Midodrine p.o. -Echocardiogram showed shows severe global hypokinesis of left ventricle, LVEF 20%, trace pericardial effusion, moderate left pleural effusion -s/p Dobutamine gtt -Coreg -proBNP 47325 -S/p 3500 mL normal saline in the ED -S/p 4 L LR in the ICU Respiratory: NAD -CCM consulted, appreciate recommendations -Pulmonary hygiene -SPO2 monitoring -Supplemental oxygen as needed GI: Severe protein calorie malnutrition -Cardiac cc diet -PPI -CT abdomen/pelvis without contrast shows no abnormality noted within the abdomen or pelvis, moderate amount of calcified plaque seen throughout the abdominal aorta and common iliac arteries with out associated aneurysm, no GI abnormality other than simple sigmoid diverticulosis : Acute on chronic kidney disease -Monitor intake and output -Renally dose medications -Avoid nephrotoxic medications -Will not replete hypokalemia in setting of BUN/creatinine of 3.4/36 -Trend BMP ID: Sepsis POA, Chronic lymphedema, possible urinary tract infection -Presented with tachycardia, hypotension, acute kidney injury, leukocytosis....source potentially urinary vs leg wounds - covid negative -f/u blood culture- NGTD. -WOCN consulted -Monitor WBC and temperature curve - Rocephin IV x 3-5 days for UTI. Endo: Type 2 diabetes -Avoid hypoglycemia -SSI -Accu-Cheks q. ACH S Heme: Leukocytosis, thrombocytopenia -Trend CBC -Transfuse hemoglobin less than 7 -SCDs to BLE while in bed #Advance care planning Disease education conducted, care plan discussed, diagnoses discussed, prognosis discussed, patient is full code, patient acknowledges understanding and agree with care plan, +30 minutes. Time spent: +35 min CPT 46498 Disposition: HOME / SELF CARE / HOMELESS Final Discharge Diagnosis (Prints w/discharge instructions): Acute on chronic systolic heart failure, acute kidney injury due to vasomotor nephropathy, bilateral lower extremity wounds. Time spent for discharge: 35 Core Measure Documentation - Palliative Care Palliative Care/ Comfort Measures: Not Applicable - Core Measures Any of the following diagnoses?: heart failure - Heart Failure Discharge Requirements KRIS/ARB for LVSD if EF <40%: No Reason for no KRIS/ARB: Renal impairment Beta mikie at discharge: Yes Exam - Physical Exam Narrative exam: Physical Exam: VITAL SIGNS: Reviewed. GENERAL: The patient appears normally developed, Vital signs as documented. HEAD: No signs of head trauma. EYES: Pupils are equal. Extraocular motions intact. EARS: Hearing grossly intact. MOUTH: Oropharynx is normal. NECK: No adenopathy, no JVD. CHEST: Chest with clear breath sounds bilaterally. No wheezes, rales, or rhonchi. CARDIAC: Regular rate and rhythm. S1 and S2, without murmurs, gallops, or rubs. VASCULAR: No Edema. Peripheral pulses normal and equal in all extremities. ABDOMEN: Soft, non tender and non distended. No rebound or guarding, and no masses palpated. Bowel Sounds normal. MUSCULOSKELETAL: Good range of motion of all major joints. Extremities without clubbing, cyanosis or edema. NEUROLOGIC EXAM: Alert and oriented x 4. no focal sensory or strength deficits. PSYCHIATRIC: Mood normal. SKIN: detail exam as documented in skin assessment - Constitutional Vitals: Temp Pulse Resp BP Pulse Ox 97.9 F 94 H 18 123/70 99 05/08/22 07:44 05/08/22 10:15 05/08/22 03:42 05/08/22 10:15 05/08/22 07:44 Plan Follow up with: PRIMARY MD LIDIA [Primary Care Provider] - 3-5 Days
--- NOTE | 2022-05-08 12:16 | Progress Note ---
Assessment and Plan Patient 76-year-old male with a past medical history of HFrEF s/p AICD, CKD, diabetes, legally blind, history of CVA who presented to the ED on 05/01/2022 with complaint of weakness x 1 day prior to admission Weakness Sepsis Acute on chronic HFrEF GERALDINE on CKD with ATN- Nephrology following Legally blind History of CVA Metabolic acidosis AICD in situ Echo 05/02/2022-EF 20%. Mild concentric LVH. Right ventricle systolic function is normal. Moderate mitral regurgitation. Mild tricuspid regurgitation. Trace aortic regurgitation. Moderate left pleural effusion. Plan: As per conversation with staff patient refusing much of his treatment Continue GDMT as tolerated. Continue ASA, statin, Coreg. No KRIS/ARB in setting of GERALDINE. Patient has soft blood pressures requiring midodrine. Possible hypotension due to sepsis. No KRIS or ARB due to renal function and hypotension. Volume management per nephrology due to patients renal function Patient cardiac status otherwise stable. Will see as needed Patient should follow-up with the [place] rayon winder 1-2 has additional Patient seen in conjunction with Dr. Patterson who agrees with this plan of care Subjective Date of service: 05/08/22 Principal diagnosis: Sepsis Interval history: Patient resting in bed in no acute distress. Patient reports feeling better Sinus 90s on monitor with no events Objective Vital Signs Temp Pulse Pulse Pulse Resp Resp BP 05/08/22 11:42 98.5 F 96 H 126/56 05/08/22 10:15 94 H 123/70 05/08/22 07:44 97.9 F 94 H 123/70 05/08/22 03:42 97.9 F 93 H 18 112/71 05/07/22 23:00 83 21 107/60 05/07/22 22:31 77 13 101/58 05/07/22 22:00 80 14 101/58 05/07/22 21:31 79 12 103/60 05/07/22 21:14 82 103/60 05/07/22 21:00 82 15 103/60 05/07/22 20:31 80 13 97/57 05/07/22 20:00 97.7 F 78 78 15 97/57 05/07/22 19:31 75 11 L 96/56 05/07/22 19:00 73 13 96/56 05/07/22 18:31 70 10 L 96/55 05/07/22 18:00 80 11 L 96/55 05/07/22 17:31 69 13 96/55 05/07/22 17:00 76 12 96/55 05/07/22 16:39 97.8 F 05/07/22 16:31 78 15 05/07/22 16:00 78 86 13 94/55 05/07/22 15:30 77 13 104/62 05/07/22 15:00 84 18 104/62 05/07/22 14:30 79 11 L 106/60 05/07/22 14:00 78 9 L 106/60 05/07/22 13:42 77 13 05/07/22 13:30 77 14 05/07/22 13:00 76 15 105/57 05/07/22 12:30 75 11 L 101/53 05/07/22 12:29 97.7 F Pulse Ox 05/08/22 11:42 97 05/08/22 10:15 05/08/22 07:44 99 05/08/22 03:42 98 05/07/22 23:00 99 05/07/22 22:31 98 05/07/22 22:00 98 05/07/22 21:31 100 05/07/22 21:14 05/07/22 21:00 100 05/07/22 20:31 99 05/07/22 20:00 98 05/07/22 19:31 99 05/07/22 19:00 96 05/07/22 18:31 98 05/07/22 18:00 99 05/07/22 17:31 99 05/07/22 17:00 99 05/07/22 16:39 05/07/22 16:31 99 05/07/22 16:00 99 05/07/22 15:30 99 05/07/22 15:00 98 05/07/22 14:30 97 05/07/22 14:00 100 05/07/22 13:42 05/07/22 13:30 97 05/07/22 13:00 99 05/07/22 12:30 99 05/07/22 12:29 - Physical Examination General: No Apparent Distress HEENT: Positive: Mucus Membranes Dry Neck: Positive: trachea midline Cardiac: Positive: Reg Rate and Rhythm Lungs: Positive: Normal Breath Sounds Neuro: Positive: Grossly Intact Abdomen: Positive: Soft Skin: Negative: Rash Extremities: Present: edema (Chronic bilateral lower extremity edema, 2+ bilateral upper extremity edema) - Labs and Meds CBC 05/07/22 Range/Units 14:20 WBC 20.1 H (4.5-11.0) K/mm3 RBC 2.35 L (3.65-5.03) M/mm3 Hgb 7.6 L (11.8-15.2) gm/dl Hct 22.4 L (35.5-45.6) % Plt Count 140 (140-440) K/mm3 Comprehensive Metabolic Panel 05/07/22 Range/Units 14:20 Sodium 132 L (137-145) mmol/L Potassium 3.6 (3.6-5.0) mmol/L Chloride 93.2 L (98-107) mmol/L Carbon Dioxide 25 (22-30) mmol/L BUN 40 H (9-20) mg/dL Creatinine 3.4 H (0.8-1.3) mg/dL Glucose 148 H (75-100) mg/dL Calcium 6.7 L (8.4-10.2) mg/dL - Imaging and Cardiology EKG: report reviewed, image reviewed Echo: report reviewed - Telemetry EKG Rhythm: Sinus Rhythm - EKG Sinus rhythms and dysrhythmias: sinus tachycardia AV and intraventricular conduction: left anterior fascicular
== END 2022-05-08 14:31 | disposition home health service (06) | DRG 871 ==
LOC: ED 12:45 → CC1 20:29 → IMCU 05-02 01:20 → CC1 05-02 01:43 → IMCU 05-06 06:06 → 4A 05-07 23:51
PROVIDERS: ADMIT Internal Medicine; ATTEND Internal Medicine
PROC: 06HY33Z Insertion of Infusion Device into Lower Vein, Percutaneous Approach (ICD-10-PCS; principal; 2022-05-01)
PROC: B54BZZA Ultrasonography of Right Lower Extremity Veins, Guidance (ICD-10-PCS; 2022-05-01)
DX: A41.9 Sepsis, unspecified organism (principal); E43 Unspecified severe protein-calorie malnutrition; N17.0 Acute kidney failure with tubular necrosis; G92.8 Other toxic encephalopathy; I50.23 Acute on chronic systolic (congestive) heart failure; E66.2 Morbid (severe) obesity with alveolar hypoventilation; Z68.41 Body mass index [BMI] 40.0-44.9, adult; N39.0 Urinary tract infection, site not specified; Z20.822 Contact with and (suspected) exposure to COVID-19; Z95.810 Presence of automatic (implantable) cardiac defibrillator; N18.9 Chronic kidney disease, unspecified; E87.6 Hypokalemia; E83.42 Hypomagnesemia; E11.22 Type 2 diabetes mellitus with diabetic chronic kidney disease; D69.6 Thrombocytopenia, unspecified; Z83.3 Family history of diabetes mellitus; Z86.73 Personal history of transient ischemic attack (TIA), and cerebral infarction without residual deficits; H54.8 Legal blindness, as defined in USA
CPT/HCPCS: 36415; 71045; 74176; 80048; 80053; 81001; 82140; 82962; 83735; 83880; 84100; 84439; 84443; 85007; 85025; 85027; 85652; 86140; 86850; 86900; 86901; 87040; 93005; 93306; 94640; 96374; 99291; G0378; J2354; J3490; J7070; C8929; J0692; J0696; J1250; J2405; J3370; J3475; J7030; J7040; J7120; Q0161; U0003